=== PATIENT | female | born 1965 | race Caucasian/White ===

== ENCOUNTER → 2016-03-16 | Day surgery (SDC) | payer OTHER ==
[2016-02-24 10:12] VITALS: Ht 167.6 cm; Wt 92.7 kg
[~2016-03-16] VITALS: Ht 167.6 cm; Wt 92.7 kg
[~2016-03-16] MED LIST: CIPR1TAB11 PO; CLON0.5T3 PO; DICL50TA3 PO; FLUO40CA8 PO; GEMF600T3 PO; HYDR-5688 PO; KETO10TA PO; LIDOCAINE HCL 2% 2 ML VIAL (20MG/ML) ONE; LISI10TA PO; MECL1TAB40 PO; METF500T PO; MIDAZOLAM HCL 1 MG/ML 2ML VIAL ONE; MULTTAB58 PO; ONDA4TAB10 SL; PROPOFOL IV EMULSION 10 MG/ML 20 ML VIAL IV ONE; SERT-234 PO; SERT1TAB68 PO; TRAM-10 PO
[2016-03-16 12:38] VITALS: TEMP 36.8
--- NOTE | 2016-03-16 12:56 | Endo History and Physical ---
History & Physical Date of Service: Mar 16, 2016. Chief Complaint: Screening; Hx diverticulitis Referring Physician: Dr. Pina History of Present Illness For colonoscopy Past Surgical History Hx Cardiac Surgery: No Hx Internal Defibrillator: No Hx Pacemaker: No Hx Abdominal Surgery: Yes (C-SECTIONS X 3, UTERINE ABLATION) Hx of Implantable Prosthesis: No Hx Post-Op Nausea and Vomiting: No Hx Cancer Surgery: No Hx Thoracic Surgery: No Hx Orthopedic: Yes (RT CTR) Hx Urinary Tract Surgery: No Family History None Social History Smoking Status: Former Smoker Hx Substance Use: No Hx Alcohol Use: Yes (RARELY) Allergies Coded Allergies: No Known Allergies (Verified , 03/16/16) Current Medications Reported Home Medications Medications Dose Route/Sig Max Daily Dose Days Date Category Meclizine HCl 12.5 Mg Tab 1 Tab PO TID PRN 10 02/24/16 Reported Zoloft (Sertraline Hcl) 100 Mg Tab 150 Mg PO HS 08/23/15 Reported Prinivil (Lisinopril) 10 Mg Tab 10 Mg PO HS 90 08/23/15 Reported Klonopin (Clonazepam) 0.5 Mg Tab 0.5-1 Tab PO HS PRN 30 08/23/15 Reported Glucophage (Metformin Hcl) 500 Mg Tab 500 Mg PO QAM 10/05/11 Reported Lopid (Gemfibrozil) 600 Mg Tab 600 Mg PO HS 11/04/08 Reported Vital Signs Weight (Kilograms): 92.73 Height (Feet): 5 Height (Inches): 6 Date Time Temp Pulse Resp B/P Pulse Ox O2 Delivery O2 Flow Rate FiO2 03/16/16 12:38 36.8 98 18 168/84 95 Room Air Physical Exam General Appearance: WD/WN Respiratory/Chest: Respiratory effort: no dyspnea Cardiovascular: Heart Auscultation: RRR Abdomen: Inspection & Palpation: soft Assessment and Plan For screening colonoscopy
--- NOTE | 2016-03-16 13:18 | Discharge Instructions ---
Endoscopy Patient Instructions Date / Procedure(s) Performed Mar 16, 2016. Colonoscopy Allergy Information Coded Allergies: No Known Allergies (Verified , 03/16/16) Discharge Date / Findings Mar 16, 2016. Diverticulosis, hemorrhoids Medication Instructions Stopped Medication(s): Metformin Restart Stopped Medication(s): resume meds Reported Home Medications Medications Dose Route/Sig Max Daily Dose Days Date Category Meclizine HCl 12.5 Mg Tab 1 Tab PO TID PRN 10 02/24/16 Reported Zoloft (Sertraline Hcl) 100 Mg Tab 150 Mg PO HS 08/23/15 Reported Prinivil (Lisinopril) 10 Mg Tab 10 Mg PO HS 90 08/23/15 Reported Klonopin (Clonazepam) 0.5 Mg Tab 0.5-1 Tab PO HS PRN 30 08/23/15 Reported Glucophage (Metformin Hcl) 500 Mg Tab 500 Mg PO QAM 10/05/11 Reported Lopid (Gemfibrozil) 600 Mg Tab 600 Mg PO HS 11/04/08 Reported Provider Instructions Activity Restrictions - No exercising or heavy lifting for 24 hours. - Do not drink alcohol the day of the procedure. - Do not drive a car or operate machinery until the day after the procedure. - Do not make any important decisions or sign important papers in 24 hours after the procedure. Following Day: - Return to full activity which may include returning to work/school. Diet Start your diet with liquids and light foods (jello, soup, juice, toast). Then eat your usual diet if not nauseated. Treatment For Common After Affects For mild abdominal pain, bloating, or excessive gas: - Rest - Eat lightly - Lie on right side Follow-Up Information Follow-up with Dr. Pina as scheduled Anesthesia Information What You Should Know You have had a procedure that required some medicine to reduce anxiety and discomfort. This treatment is called moderate sedation. After receiving the treatment, you may be sleepy, but you will be able to breathe on your own. The effects of the treatment may last for several hours. Follow these instructions along with Activity/Diet recommendations noted above: * Do NOT do anything where dizziness or clumsiness would be dangerous. * Rest quietly at home today, then you can be up and about tomorrow. * Have a responsible person stay with you the rest of today. * You may have had an I.V. today. If so, you may take the dressing off later today. Recommendations Call your doctor if: * Trouble breathing * Continuous vomiting for more than 24 hours * Temperature above 101 degrees * Severe abdominal pain or bloating * Pain not relieved by pain medicine ordered * There is increased drainage or redness from any incision * A large amount of rectal bleeding greater than 2-3 tablespoons. (If you had a polyp/s removed or have hemorrhoids, a small amount of blood - from the rectum is to be expected.) * You have any unanswered questions or concerns. IN THE EVENT OF A SERIOUS EMERGENCY, GO TO THE NEAREST EMERGENCY ROOM Your discharge instructions were prepared by provider Teddy Shrestha. Patient Instructions Signature Page Asia Bullard Patient (or Guardian) Signature/Date: I have read and understand the instructions given to me by my caregivers. Caregiver/RN/Doctor Signature/Date: The above-named patient and/or guardian has received patient instructions on this date. + Original Patient Signature Page (only) stays with chart. Please make copy for patient.
--- NOTE | 2016-03-16 13:22 | GI REPORT ---
Procedure Date: 03/16/2016 12:38 PM Procedure: Colonoscopy Indications: Screening for colorectal malignant neoplasm Medicines: Midazolam 2 mg IV, Propofol total dose 250 mg IV, Lidocaine 40 mg IV Complications: No immediate complications. Estimated Blood Loss: Estimated blood loss: none. Procedure: Pre-Anesthesia Assessment: - Prior to the procedure, a History and Physical was performed, and patient medications, allergies and sensitivities were reviewed. The patient's tolerance of previous anesthesia was reviewed. - The risks and benefits of the procedure and the sedation options and risks were discussed with the patient. All questions were answered and informed consent was obtained. After I obtained informed consent, the scope was passed under direct vision. Throughout the procedure, the patient's blood pressure, pulse, and oxygen saturations were monitored continuously. The scope was introduced through the anus and advanced to the cecum, identified by appendiceal orifice and ileocecal valve. The colonoscopy was performed without difficulty. The patient tolerated the procedure well. The quality of the bowel preparation was excellent. Findings: A few diverticula were found in the sigmoid colon. Non-bleeding internal hemorrhoids were found during endoscopy. The hemorrhoids were mild. Impression: - Diverticulosis in the sigmoid colon. - Non-bleeding internal hemorrhoids. - No specimens collected. Recommendation: - Discharge patient to home (ambulatory). - Continue present medications. - Repeat colonoscopy in 10 years for screening purposes. - Return to primary care physician PRN. Teddy Shrestha M.D. Teddy Shrestha MD 03/16/2016 1:21:18 PM This report has been signed electronically. Note Initiated On: 03/16/2016 12:38 PM
[2016-03-16 13:55] VITALS: BP 118/69; PULSE 80; O2SAT 95
--- NOTE | 2016-03-16 15:15 | Anesthesiology Progress Note ---
Anesthesia Post Op Note Date & Time Mar 16, 2016 at 15:15 Vital Signs Pain Intensity: 0 Vital Signs Past 12 Hours Date Time Temp Pulse Resp B/P Pulse Ox O2 Delivery O2 Flow Rate FiO2 03/16/16 13:55 80 18 118/69 95 Room Air 03/16/16 13:39 75 18 123/73 94 Room Air 03/16/16 13:24 98 18 85/52 98 Room Air 03/16/16 12:38 36.8 98 18 168/84 95 Room Air Notes Mental Status: alert / awake / arousable, participated in evaluation Pt Amnestic to Procedure: Yes Nausea / Vomiting: adequately controlled Pain: adequately controlled Airway Patency, RR, SpO2: stable & adequate BP & HR: stable & adequate Hydration State: stable & adequate Anesthetic Complications: no major complications apparent
== END | disposition home or self-care (01) ==
LOC: C.GI 12:17
PROVIDERS: ATTEND Internal Medicine Gastroenterology
DX: Z12.11 Encounter for screening for malignant neoplasm of colon (principal); K64.8 Other hemorrhoids; K57.30 Diverticulosis of large intestine without perforation or abscess without bleeding; Z87.891 Personal history of nicotine dependence

== ENCOUNTER → 2016-05-11 | Outpatient (CLI) | payer OTHER ==
[~2016-05-11] MED LIST changes: -LIDOCAINE HCL 2% 2 ML VIAL (20MG/ML) ONE; -MIDAZOLAM HCL 1 MG/ML 2ML VIAL ONE; -PROPOFOL IV EMULSION 10 MG/ML 20 ML VIAL IV ONE; -SERT1TAB68 PO
[2016-05-11 15:54] LABS: HEMATOCRIT 37.1 % (37-47); MEAN CELL VOLUME 83.2 fL (80-100); MEAN CORPUSCULAR HGB CONC 33.7 g/dl (32-36); MEAN PLATELET VOLUME 10.2 fL (7.4-10.4); PLATELET COUNT 256 K/uL (130-400); RED BLOOD COUNT 4.46 M/uL (4.2-5.4); WHITE BLOOD COUNT 6.67 K/uL (4.8-10.8)
[2016-05-11 16:25] LABS: BLOOD UREA NITROGEN 12 mg/dl (7-18); BUN/CREATININE RATIO 19.3 (10-20); CARBON DIOXIDE 28 mmol/L (21-32); CHLORIDE 103 mmol/L (98-107); CREATININE 0.62 mg/dl (0.60-1.20); GLUCOSE 105 mg/dl (70-99); POTASSIUM 3.8 mmol/L (3.5-5.1); SODIUM 138 mmol/L (136-145)
== END | disposition home or self-care (01) ==
LOC: C.CPL 14:40
PROVIDERS: ATTEND Physical Medicine & Rehabilitation Sports Medicine
DX: Z01.818 Encounter for other preprocedural examination (principal); G56.02 Carpal tunnel syndrome, left upper limb

== ENCOUNTER → 2016-05-14 | Day surgery (SDC) | payer OTHER ==
[2016-04-30 07:47] VITALS: Ht 167.6 cm; Wt 92.7 kg
[~2016-05-14] VITALS: Ht 167.6 cm; Wt 92.7 kg
[~2016-05-14] MED LIST changes: +ATROPINE SULFATE 0.1 MG/ML 5ML SYR IV PRN; +BUPIVACAINE/EPINEPHRINE 0.5% MPF 1:200,000 30 ML VIAL ONE; +CEFAZOLIN 2000 MG/60 ML D5W IV SCH; +DEXAMETHASONE SOD INJ 4 MG/ML VIAL ONE; +EpHEDrine SULFATE INJ 50 MG/ML AMP IV PRN; +FENTANYL CITRATE INJ 50 MCG/1 ML 2 ML VIAL IV PRN; +FENTANYL CITRATE INJ 50 MCG/1 ML 2 ML VIAL ONE; +HYDROCODONE/ACETAMOPHEN 5/325MG TAB PO PRN; +LACTATED RINGER'S 1000ML 1,000 ML IV SCH; +LIDOCAINE HCL 1% 20 ML VIAL ONE; +LIDOCAINE HCL 2% 2 ML VIAL (20MG/ML) ONE; +MIDAZOLAM HCL 1 MG/ML 2ML VIAL ONE; +MoRPHine SULFATE 2 MG/ML CARP IV PRN; +MoRPHine SULFATE 4 MG/ML 1 ML CARP\\VIAL IV PRN; +ONDANSETRON INJ 2 MG/ML 2 ML VIAL IV PRN; +ONDANSETRON INJ 2 MG/ML 2 ML VIAL ONE; +PROPOFOL IV EMULSION 10 MG/ML 20 ML VIAL IV ONE; +SODIUM CHLORIDE 0.9% 1000ML 1,000 ML IV SCH
--- NOTE | 2016-05-14 08:19 | History & Physical Bridge Note ---
H&P Re-Evaluation Bridge Note: I have examined the patient, reviewed the History & Physical and in the interval since the performance of the History & Physical I have noted the following changes of clinical significance: No changes noted
--- NOTE | 2016-05-14 09:05 | [facility] Post Operative Brief Note ---
Immediate Operative Summary Operative Date May 14, 2016. Pre-Operative Diagnosis Left Carpal Tunnel Syndrome Post-Operative Diagnosis Same Procedure(s) Performed Left Carpal Tunnel Release Surgeon Dr. Gomez Rn Perinatal Surgeon(s) Kirsten Barnett PA-C Estimated Blood Loss 0 mL Findings nerve branch thru transverse carpal ligament Specimens None Anesthesia local with IV sedation Complication(s) None Disposition Recovery Room / PACU
[2016-05-14 09:10] VITALS: TEMP 36.3
--- NOTE | 2016-05-14 09:11 | Discharge Instructions-SurgCtr ---
Discharge Instructions Date of Service May 14, 2016. Visit Reason for Visit: Left Carpal Tunnel Syndrome Discharge Discharge Diagnosis / Problem: Status post left carpal tunnel release Discharge Goals Goal(s): Decrease discomfort, Improve function, Increase independence Medications Stopped Medications Name(s): Metformin- last taken 05/06/16 Lopid- last taken 05/06/16 Activity Recommendations Activity Limitations: per Instructions/Follow-up section The following are instructions to follow after minor hand surgery. ACTIVITY RECOMMENDATIONS: * Minimize activity until your first visit after surgery. * No excessive walking, jogging, sports or laboring. * Return to activity is individualized. Most patients are able to return to everyday activities within 2 weeks. * Return to sports or intensive labor usually occurs at 1-2 months. * DRIVING: Driving may be resumed when you feel you have adequate pain control and use of the hand. * BATHING: You may shower or sponge-bathe immediately after surgery. The dressing will need to be covered with a plastic bag or plastic wrap until the dressing is changed on the fourth or fifth day after surgery. Once the dressing has been changed on the fourth or fifth day after surgery, you may shower and get the incision wet. * Wash with regular soap and water. * Do not bathe (submerge the incision), soak, swim or use a hot tub until the incision is completely healed over with normal skin and the doctor has given the OK to proceed. * There is no need to apply any ointments, powders or salves to your incision. * Do not apply alcohol or hydrogen peroxide directly to the incision. Diluted peroxide (50:50 mixture with sterile saline) may be used to clean dried blood from around the incision area. WORK/SCHOOL: * You may return to sedentary work or school when you are feeling comfortable. This is usually 3-7 days after surgery. * Expect increased discomfort with increased activity. Continue to elevate and ice the hand as much as possible. DIET: * Resume previous diet. MEDICATIONS: * You will have a prescription for pain medication and an anti-inflammatory medication after surgery. Use the pain pills for severe pain and the anti-inflammatory for less severe pain. * Once the pain pills have run out, try to use the anti-inflammatory. If this is not effective then contact the office for assistance. * The pain medication may cause nausea, constipation and sleepiness. You should see how they affect you before driving or similar activity. * The anti-inflammatory may cause stomach upset and bleeding. If this occurs, let your doctor know immediately . * Some patients may need blood clot prevention. This can be done with either a pill or a simple shot. Your doctor will advise you on when to begin these medications and how to take them. * Do not take aspirin or other anti-inflammatory products (i.e. Advil or Aleve ) if taking blood thinner medication. * Take a stool softener like Colace or a stimulant like Senokot to prevent constipation. SPECIAL CARE INSTRUCTIONS: ICE: * Do not apply ice directly to the skin. * Use a thin dressing or stockinet between the skin and ice bag. The dressing in place after surgery will suffice. * Apply ice for 20-30 minutes and repeat every 2-4 hours. This is especially important for the first 3-7 days after surgery. * Once the pain improves, use ice as needed. ELEVATION: * Keep your hand elevated at or above the level of your heart as much as possible. * Expect some increased discomfort and swelling if you allow your hand to hang down for any length of time. DRESSING: * Your dressing will be changed 4-5 days after surgery by the physical therapist or physician's animal care assistant. Leave your dressing intact until this time. * You may then change your dressing daily with clean dry gauze or Band-aids and a soft wrap or stockinet. * Always wash your hands prior to touching the incision area. * Once the stitches are removed, you may leave the wound open to air or cover with a thin bandage. * There is no need to apply any ointments, powders or salves to your incision. * Expect some bloody drainage for the first few days after surgery. * Leave the tape strips in place (if present) for 5-7 days. * The initial dressing after surgery may become soaked with blood or fluid which is normal. You may reinforce your dressing with clean, dry gauze as needed. BRACE: * Bracing is generally not needed after routine hand surgery. THERAPY: * Physical therapy may be prescribed after your surgery. * For carpal tunnel and trigger digit surgery you may begin moving your fingers and wrist immediately after surgery as tolerated. * Be careful to not overuse. * Once the sutures are removed, further range of motion exercises can be performed. * Hand incisions may be very sensitive for a few months after surgery so avoid excessive pressure on the incision. If necessary, use a padded weightlifters' glove. * You may massage the incision with skin cream to make it less sensitive and reduce scarring. * Hand strength usually returns with normal use. * If needed, squeezing a soft sponge or Play-dough may help. * Your doctor will recommend physical therapy if necessary. PROBLEMS/QUESTIONS: * If you have any problems such as severe pain, numbness, tingling or high fevers or if you have any questions, please contact the office at [phone]. * It is not uncommon to have some numbness and tingling after the surgery especially if you have had a nerve block done. This should gradually improve over the first 1- 2 days. If this persists longer or worsens then contact the office. FOLLOW UP VISIT: * If not already scheduled, please call the office at to schedule follow-up appointments for approximately 10 days, 6 weeks and 3 months after surgery. * Follow up with Dr. Gomez on 05/25/16 at 11 am * Follow up with BUNNY Villarreal PA-C ON 04/29/16 AT 2.15 pm Anesthesia . Post Anesthesia Instructions: If you have had General Anesthesia or IV Sedation: * Do not drive today. * Resume driving when surgeon permits. * Do not make important decisions or sign legal documents today. * Call surgeon for: 1. Temperature elevations greater than 101 degrees F. 2. Uncontrollable pain. 3. Excessive bleeding. 4. Persistent nausea and vomiting. 5. Medication intolerance (nausea, vomiting or rash). * For nausea and vomiting use only clear liquids such as: tea, soda, bouillon until nausea subsides, then gradually increase diet as tolerated. * If you have any concerns or questions, call your surgeon's office. If physician is unavailable and it is an emergency, call 911 or go to the nearest emergency room. . Diet Recommendations Home Diet: no limitations, resume previous diet Procedures Procedures Performed: Left Carpal Tunnel Release Pending Studies Studies pending at discharge: no Medical Emergencies . Who to Call and When: Medical Emergencies: If at any time you feel your situation is an emergency, please call 911 immediately. . Non-Emergent Contact Non-Emergency issues call your: Surgeon . . "Provider Documentation" section prepared by Erasmo Gabriel.
--- NOTE | 2016-05-14 09:17 | Anesthesia Progress Nt - [facility] ---
Anesthesia Post Op Note Date & Time May 14, 2016 at 09:17 Vital Signs Pain Intensity: 0 Vital Signs Past 12 Hours Date Time Temp Pulse Resp B/P Pulse Ox O2 Delivery O2 Flow Rate FiO2 05/14/16 07:06 36.7 89 16 126/86 96 Room Air Notes Mental Status: alert / awake / arousable, participated in evaluation Pt Amnestic to Procedure: Yes Nausea / Vomiting: adequately controlled Pain: adequately controlled Airway Patency, RR, SpO2: stable & adequate BP & HR: stable & adequate Hydration State: stable & adequate Anesthetic Complications: no major complications apparent
[2016-05-14 09:47] VITALS: BP 114/74; PULSE 71; O2SAT 99
--- NOTE | 2016-05-14 11:58 | OPERATIVE REPORT ---
DATE OF OPERATION: 05/14/2016 PREOPERATIVE DIAGNOSIS: Left carpal tunnel syndrome. POSTOPERATIVE DIAGNOSIS: Same. PROCEDURE: Open left carpal tunnel release. SURGEON: Dr. Gomez. AUTOMOTIVE SERVICES MANAGER: Cristiana Barnett and Jeffry Lane, third year PA student. ANESTHESIA: Local with IV sedation. INDICATIONS OF PROCEDURE: The patient is a 50-year-old female with left carpal tunnel syndrome refractory to nonsurgical methods of management. PROCEDURE IN DETAIL: Informed consent was obtained. The patient was identified as Asia Bullard. She identified the operative site as the left hand. I marked with my initials. A preop surgical time out was performed. A preop dose of IV antibiotics was given. She was taken to the operating room and positioned supine on the hospital stretcher. The left arm was placed on a hand table. A tourniquet was applied about the left upper arm. The limb was prepped and draped in the usual sterile fashion. The exam under anesthesia was unremarkable. DVT prophylaxis is not indicated. Prior to the start of the procedure, 1% lidocaine with epinephrine was injected into the hand for carpal tunnel block. Routine prep and drape was performed. This was followed by exsanguinating the limb with the Esmarch, tourniquet inflated to 225 mmHg. A midline longitudinal incision was made beginning at Magana's cardinal line and proceeding just short of the distal wrist crease. Blunt dissection was utilized down to subcutaneous tissues and the transverse carpal ligament was identified. The distal extent was incised. The fat at the distal end of the carpal canal was identified. A very small muscle was noted at this level which was transected, it was only about 4 mm wide and 2 cm long oriented transversely. The incision through the transverse carpal ligament was carried proximally. At that point it was noted that there was a small nerve branch piercing the transverse carpal ligament and proceeding towards the thenar fascia and musculature. Further dissection was performed in order to safely visualize and protect the nerve. The incision was extended ulnar peters to the transverse wrist crease. Blunt dissection was then performed down through the subcutaneous tissues. The remnants of the palmar fascia were incised. The junction of the distal forearm fascia and proximal transverse carpal ligament was identified. The nerve was identified and the release was then carried slightly more ulnar peters up into the distal forearm fascia under direct visualization. The nerve branch was about 2-3 mm in size and remained in continuity. The nerve itself and tendons and tenosynovium, contents and floor of the canal looked normal. I released the nerve up into the thenar fascia. This could be a cutaneous branch or an aberrant pathway of the motor branch. The nerve remained in continuity. The wound was irrigated and then the skin was closed with interrupted 4-0 nylon horizontal mattress stitches. A soft sterile dressing was applied and the tourniquet was let down. The patient was awakened from anesthesia without difficulty, taken to recovery in stable condition. There were no specimens or complications. Counts were correct at the end of case. Blood loss was minimal. At the conclusion of the operation, I spoke to patient's and informed him of my findings. Detailed postoperative instructions were given. She will be rehabilitated according to the carpal tunnel plan. I attest to the content of the Intraoperative Record and any orders documented therein. Any exceptio ns are noted below.
--- NOTE | 2016-05-14 13:24 | [facility] Operative Report ---
Operative Report Operative Date May 14, 2016. Pre-Operative Diagnosis Left Carpal Tunnel Syndrome Post-Operative Diagnosis Left carpal tunnel syndrome Procedure(s) Performed Open left carpal tunnel release Surgeon Dr. Gomez Assistant Branch Operations Manager Surgeon(s) Kirsten Barnett PA-C Estimated Blood Loss 0 mL Findings CTS left wrist Specimens None Drains None Anesthesia local with IV sedation Complication(s) None Disposition Recovery Room / PACU Indications Patient is a 50 year old female with complaints of left hand paresthesias, failed with conservative treatment. X-rays, EMG/NCS obtained, found to have left carpal tunnel syndrome. Surgical intervention discussed, she wished to proceed. Risks/complications discussed, informed consent obtained. Description of Procedure Patient was taken to the operating room, given IV Ancef for surgical prophylaxis. Time out performed, prepped and draped in routine sterile fashion. I was present the entire case, please see Dr. Gomez's operative report for further detail. Patient was awakened and taken to the recovery room in stable condition. I attest to the content of the Intraoperative Record and any orders documented therein. Any exceptions are noted below.
== END | disposition home or self-care (01) ==
LOC: X.SURG 06:54
PROVIDERS: ATTEND Physical Medicine & Rehabilitation Sports Medicine
DX: G56.02 Carpal tunnel syndrome, left upper limb (principal); F32.9 Major depressive disorder, single episode, unspecified; I10 Essential (primary) hypertension; I25.10 Atherosclerotic heart disease of native coronary artery without angina pectoris; K57.30 Diverticulosis of large intestine without perforation or abscess without bleeding; E78.5 Hyperlipidemia, unspecified; E66.9 Obesity, unspecified; Z98.890 Other specified postprocedural states; Z68.33 Body mass index [BMI] 33.0-33.9, adult; Z82.49 Family history of ischemic heart disease and other diseases of the circulatory system; Z83.3 Family history of diabetes mellitus

== ENCOUNTER → 2016-07-08 | Outpatient (CLI) | payer OTHER ==
[~2016-07-08] MED LIST changes: -ATROPINE SULFATE 0.1 MG/ML 5ML SYR IV PRN; -BUPIVACAINE/EPINEPHRINE 0.5% MPF 1:200,000 30 ML VIAL ONE; -CEFAZOLIN 2000 MG/60 ML D5W IV SCH; +CIPR-255 PO; -DEXAMETHASONE SOD INJ 4 MG/ML VIAL ONE; -EpHEDrine SULFATE INJ 50 MG/ML AMP IV PRN; -FENTANYL CITRATE INJ 50 MCG/1 ML 2 ML VIAL IV PRN; -FENTANYL CITRATE INJ 50 MCG/1 ML 2 ML VIAL ONE; +GADAVIST IV PRN; -HYDROCODONE/ACETAMOPHEN 5/325MG TAB PO PRN; -LACTATED RINGER'S 1000ML 1,000 ML IV SCH; -LIDOCAINE HCL 1% 20 ML VIAL ONE; -LIDOCAINE HCL 2% 2 ML VIAL (20MG/ML) ONE; +METR-163 PO; -MIDAZOLAM HCL 1 MG/ML 2ML VIAL ONE; -MoRPHine SULFATE 2 MG/ML CARP IV PRN; -MoRPHine SULFATE 4 MG/ML 1 ML CARP\\VIAL IV PRN; -ONDANSETRON INJ 2 MG/ML 2 ML VIAL IV PRN; -ONDANSETRON INJ 2 MG/ML 2 ML VIAL ONE; -PROPOFOL IV EMULSION 10 MG/ML 20 ML VIAL IV ONE; -SODIUM CHLORIDE 0.9% 1000ML 1,000 ML IV SCH
--- NOTE | 2016-07-08 08:14 | DIAGNOSTIC IMAGING REPORT ---
MRI brain BRAIN COMBO FOR IAC CLINICAL HISTORY: [id number] TECHNIQUE: Multiaxial MRI acquisition COMPARISON STUDY: 09/17/2011 FINDINGS: Normal study. Diffusion-weighted images are negative for an acute ischemic insult. Signal characteristics are unremarkable throughout. The internal auditory canals are unremarkable. No abnormal postcontrast enhancement. IMPRESSION: Normal study. No change from the prior exam. Electronically signed by: Neno Mcmahan M.D. 07/08/2016 8:13 AM Dictated Date/Time: 07/08/2016 8:10 AM
== END | disposition home or self-care (01) ==
LOC: C.MRIBC 06:51
PROVIDERS: ATTEND Family Medicine
DX: H93.19 Tinnitus, unspecified ear (principal); R42 Dizziness and giddiness

== ENCOUNTER → 2016-08-26 | Outpatient (CLI) | payer OTHER ==
[~2016-08-26] MED LIST changes: -CIPR-255 PO; -GADAVIST IV PRN; -METR-163 PO
--- NOTE | 2016-08-26 11:57 | DIAGNOSTIC IMAGING REPORT ---
LUMBAR SPINE 5 VIEWS HISTORY: Pain LOW BACK PAIN, RT LEG PAIN COMPARISON: None. FINDINGS: There is no fracture. No subluxation. Minimal degenerative disc change throughout IMPRESSION: Minimal degenerative change. No acute process. Electronically signed by: Neno Mcmahan M.D. 08/26/2016 11:56 AM Dictated Date/Time: 08/26/2016 11:55 AM
== END | disposition home or self-care (01) ==
LOC: C.RADBC 11:27
PROVIDERS: ATTEND Chiropractor
DX: M54.5 Low back pain (principal); M79.604 Pain in right leg; I10 Essential (primary) hypertension; D47.2 Monoclonal gammopathy; G62.9 Polyneuropathy, unspecified; R00.2 Palpitations; Z11.59 Encounter for screening for other viral diseases

== ENCOUNTER → 2016-09-02 | Outpatient (CLI) | payer OTHER ==
[~2016-09-02] MED LIST changes: -FLUO40CA8 PO; -HYDR-5688 PO
--- NOTE | 2016-09-02 16:21 | DIAGNOSTIC IMAGING REPORT ---
MRI OF THE LUMBAR SPINE WITHOUT CONTRAST CLINICAL HISTORY: Severe low back pain radiating into right lower extremity. COMPARISON STUDY: Lumbar spine radiographs August 26, 2016. TECHNIQUE: Utilizing a 1.5 Cinthia magnet and dedicated coil, multiplanar, multiecho imaging of the lumbar spine was performed without IV contrast. FINDINGS: For purposes of numbering on since exam, the L5-S1 disc space is assigned to axial image 23 of 25. Alignment of the lumbar spine is anatomic. Vertebral body heights are maintained. There is no intracanalicular mass or fluid collection. Conus terminates at the inferior L1 level. Paravertebral soft tissues are unremarkable. L1-2: The central canal and neural foramen are patent. L2-3: The central canal and neural foramen are patent. L3-4: The central canal and neural foramen are patent. L4-5: There is mild facet arthrosis. The central canal and neural foramen are patent. L5-S1: There is an 8 mm x 5 mm right paracentral disc protrusion with moderate narrowing of the right lateral recess with mass effect upon the descending right S1 nerve root. The neural foramen are patent. There is minimal narrowing of the right aspect of the central canal. IMPRESSION: 1. Moderate sized right paracentral disc protrusion at L5-S1 with moderate narrowing of the right lateral recess and suspected mass effect upon the descending right S1 nerve root. This could be correlated with a right S1 radiculopathy. 2. Otherwise, minimal multilevel degenerative changes of the lumbar spine. Electronically signed by: Pipo Terrell M.D. 09/02/2016 4:20 PM Dictated Date/Time: 09/02/2016 4:14 PM
== END | disposition home or self-care (01) ==
LOC: C.MRIBC 14:53
PROVIDERS: ATTEND Anesthesiology
DX: M54.5 Low back pain (principal); M54.16 Radiculopathy, lumbar region

== ENCOUNTER 2016-09-06 19:31 | Emergency (ER) | payer OTHER ==
[~2016-09-06] VITALS: Ht 165.1 cm; Wt 93.6 kg
[~2016-09-06 19:31] MED LIST changes: -CIPR1TAB11 PO; -DICL50TA3 PO; -KETO10TA PO; -ONDA4TAB10 SL; -TRAM-10 PO
[2016-09-06 19:34] VITALS: TEMP 36.2; Ht 165.1 cm; Wt 93.6 kg
[2016-09-06] MEDS ORDERED: HYDROCODONE/ACETAMOPHEN 5/325MG TAB PO STA (20:09)
[2016-09-06] MEDS ORDERED: ONDANSETRON 4MG OD TAB PO STA (20:09)
[2016-09-06] MEDS ORDERED: ONDA4TAB10 SL (20:14)
[2016-09-06] MEDS ORDERED: ONDANSETRON HOME PACK 4MG OD TAB PO ONE (20:15)
[2016-09-06 20:25] VITALS: BP 133/85; PULSE 79; O2SAT 98
--- NOTE | 2016-09-06 20:38 | EMERGENCY ROOM VISIT NOTE ---
History First contact with patient: 19:41 Chief Complaint: BACK PAIN Stated Complaint: SEVERE BACK PAIN History of Present Illness The patient is a 50 year old female who presents to the Emergency Room with complaints oflower back pain radiating all the way down the right leg to the foot. The patient has had the symptoms for the past few months. She was seen earlier last week by Dr. Cason with [facility] pain management. The patient reports having an MRI performed and has an appointment with Dr. Cason tomorrow afternoon. The patient reports significant pain at this time. The patient reports that she was in the swimming poor over the weekend, but now is finding it difficult for her to sit or try to get up from a sitting or lying position. She has not noticed any worsening weakness or foot drop. She also denies any bladder or bowel incontinence or saddle anesthesias.the patient reports that she does not like to take narcotic analgesics as they make her nauseated. She has never been treated with an antiemetic. She reports having a prescription for hydrocodone from carpal tunnel surgery 4 months ago. The patient reports that she just completed a Medrol Dosepak that was prescribed by Dr. Cason. The patient currently rates her discomfort a 9 out of 10 on my exam. Review of Systems 10 system review was performed and was negative except for pertinent positives and negatives as indicated in history of present illness Past Medical/Surgical History Medical Problems: (1) Anxiety Disorder, Unspecified (2) Charcot's joint (3) CHARCOT'S JOINT, UNSPECIFIED SITE (4) Diverticulitis (5) Hyperlipidemia Nec/Nos (6) Hypertension Nos (7) LLQ abdominal pain (8) Loss of sensation (9) Peripheral neuropathy (10) Peripheral neuropathy Family History Unremarkable Social History Smoking Status: Never Smoker Alcohol Use: none Marital Status: Housing Status: lives with family Occupation Status: employed Current/Historical Medications Scheduled Gemfibrozil (Lopid), 600 MG PO HS Lisinopril (Prinivil), 10 MG PO HS Metformin Hcl (Glucophage), 500 MG PO QAM Multiple Vitamin (Multivitamin), 1 TAB PO QAM Ondasetron Odt (Zofran Odt), 4 MG SL Q6H Sertraline (Zoloft), 150 MG PO HS Scheduled PRN Clonazepam (Klonopin), 0.5-1 TAB PO HS PRN for Sleep Meclizine HCl (Meclizine HCl), 1 TAB PO TID PRN for VERTIGO Allergies Coded Allergies: No Known Allergies (Verified , 05/14/16) Physical Exam Vital Signs Date Time Temp Pulse Resp B/P (MAP) Pulse Ox O2 Delivery O2 Flow Rate FiO2 09/06/16 19:34 36.2 97 18 153/95 96 Room Air Physical Exam CONSTITUTIONAL: Healthy and well nourished. Alert and oriented X 3 with positive affect. The patient appears in moderate discomfort from pain, and is constantly shifting her weight on the bed while lying in a semi-Su's position. HEENT: Normocephalic, atraumatic. Pupils equal, round and reactive. NECK: Full active range of motion without discomfort. MUSCULOSKELETAL: Examination shows mild tenderness to palpation through the right SI joint. Negative logroll. Positive straight leg raise. INTEGUMENTARY: No rash or other significant dermatologic conditions noted. NEUROLOGIC: The patient has decreased sensation of bilateral lower extremities secondary to neuropathy. Medical Decision & Procedures ER Provider Diagnostic Interpretation: I did review the patient's MRI from last week, with the report as follows: MRI OF THE LUMBAR SPINE WITHOUT CONTRAST CLINICAL HISTORY: Severe low back pain radiating into right lower extremity. COMPARISON STUDY: Lumbar spine radiographs August 26, 2016. TECHNIQUE: Utilizing a 1.5 Cinthia magnet and dedicated coil, multiplanar, multiecho imaging of the lumbar spine was performed without IV contrast. FINDINGS: For purposes of numbering on since exam, the L5-S1 disc space is assigned to axial image 23 of 25. Alignment of the lumbar spine is anatomic. Vertebral body heights are maintained. There is no intracanalicular mass or fluid collection. Conus terminates at the inferior L1 level. Paravertebral soft tissues are unremarkable. L1-2: The central canal and neural foramen are patent. L2-3: The central canal and neural foramen are patent. L3-4: The central canal and neural foramen are patent. L4-5: There is mild facet arthrosis. The central canal and neural foramen are patent. L5-S1: There is an 8 mm x 5 mm right paracentral disc protrusion with moderate narrowing of the right lateral recess with mass effect upon the descending right S1 nerve root. The neural foramen are patent. There is minimal narrowing of the right aspect of the central canal. IMPRESSION: 1. Moderate sized right paracentral disc protrusion at L5-S1 with moderate narrowing of the right lateral recess and suspected mass effect upon the descending right S1 nerve root. This could be correlated with a right S1 radiculopathy. 2. Otherwise, minimal multilevel degenerative changes of the lumbar spine. ED Course Patient history and physical exam were performed. Nurse's notes were reviewed. Vital signs were reviewed, showing an elevated blood pressure 153/95. The patient does appear in moderate discomfort from pain. The patient voices that she does not like to take narcotic analgesics as they make her nauseated. She has never tried to take antiemetics before taking her medications. I also reviewed the patient's MRI from last week, showing a moderate sized right paracentral disc protrusion at L5-S1 with moderate narrowing of the right lateral recess and suspected mass effect upon the descending right S1 nerve root. This could be correlated with a right S1 radiculopathy. I did review MRI results with the patient. At this point, I explained options including attempted pain management while in the emergency department, opting for hospitalist evaluation and/or spine surgeon consultation if she has intractable pain. I also explained that she could follow up tomorrow with Dr. Cason, and could discuss further interventions, during the possibility of an epidural steroid injection. 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 At this point, the patient elected to try outpatient pain management. The patient again reports that she has plenty of hydrocodone pills from her previous carpal tunnel surgery that she never used. The patient was provided a home pack and prescription for Zofran ODT. She was also administered Brandon 5/325 and Zofran 4 mg ODT while in the emergency department. She was instructed to return to the emergency department for any uncontrollable pain, otherwise will follow-up with Dr. Cason tomorrow afternoon as scheduled. The patient was happy with plan of care , voiced understanding of all discharge instructions, and rated her discomfort an 8 out of 10 at the time of discharge when she is administered hydrocodone. Medical Decision Impression Primary Impression: Right lumbosacral radiculopathy Departure Information Prescriptions Ondasetron Odt (ZOFRAN ODT) 4 Mg Tab 4 MG SL Q6H for Nausea, #20 TAB Prov: Dimas Ramirez PA 09/06/16 Referrals Tyrone Caba M.D. (PCP) Patient Instructions [facility]
[2016-09-18] MEDS ORDERED: KETO10TA PO (10:53)
[2016-11-03] MEDS ORDERED: CIPR1TAB11 PO (14:41)
== END 2016-09-06 20:30 | disposition home or self-care (01) ==
LOC: C.EDB 19:32 → C.EDD 20:30
DX: M54.17 Radiculopathy, lumbosacral region (principal); E78.5 Hyperlipidemia, unspecified; I10 Essential (primary) hypertension; K57.92 Diverticulitis of intestine, part unspecified, without perforation or abscess without bleeding; F41.9 Anxiety disorder, unspecified; Z79.84 Long term (current) use of oral hypoglycemic drugs; Z79.899 Other long term (current) drug therapy

== ENCOUNTER 2016-09-07 04:18 | Observation (INO) | payer OTHER ==
[~2016-09-07] VITALS: Ht 165.1 cm; Wt 99.3 kg
[~2016-09-07 04:18] MED LIST changes: +ONDA4TAB10 SL
[2016-09-07] MEDS ORDERED: ONDANSETRON INJ 2 MG/ML 2 ML VIAL IV STA (04:32)
[2016-09-07] MEDS ORDERED: KETOROLAC TROMETHAMINE 30 MG/ML VIAL IV STA (04:32)
[2016-09-07] MEDS ORDERED: OXYCODONE HCL IR 5 MG TAB (IMMEDIATE RELEASE) PO STA (05:23)
[2016-09-07] MEDS ORDERED: HYDROmorphone INJ 0.5 MG/0.5 ML SYR IV STA (06:18)
--- NOTE | 2016-09-07 06:26 | EMERGENCY ROOM VISIT NOTE ---
History First contact with patient: 04:24 Chief Complaint: BACK PAIN Stated Complaint: BACK PAIN History of Present Illness The patient is a 50 year old female who presents to the Emergency Room with complaints of low back pain that radiates down her right leg for the past few weeks whose been following with Dr. Kelly and just finished a Medrol dosepak. Patient was seen here yesterday and given Pray and Zofran for her pain. Patient states she does not do well with narcotics and gets quite nauseous and ill with them. Patient states she took a Pray and Zofran and Rocephin that she felt very dizzy and queasy. Patient still complain of the back pain, 9 out of 10. Worse with movement and better with rest. No new injury. Patient denies loss of bowel or bladder control, saddle anesthesia, fever, chills, leg weakness, IV drug abuse. Review of Systems See HPI for pertinent positives & negatives. A total of 10 systems reviewed and were otherwise negative. Past Medical/Surgical History Medical Problems: (1) Anxiety Disorder, Unspecified (2) Charcot's joint (3) CHARCOT'S JOINT, UNSPECIFIED SITE (4) Diverticulitis (5) Hyperlipidemia Nec/Nos (6) Hypertension Nos (7) LLQ abdominal pain (8) Loss of sensation (9) Peripheral neuropathy (10) Peripheral neuropathy Social History Smoking Status: Never Smoker Alcohol Use: none Marital Status: Housing Status: lives with family Occupation Status: employed Current/Historical Medications Scheduled Gemfibrozil (Lopid), 600 MG PO HS Lisinopril (Prinivil), 10 MG PO HS Metformin Hcl (Glucophage), 500 MG PO QAM Multiple Vitamin (Multivitamin), 1 TAB PO QAM Ondasetron Odt (Zofran Odt), 4 MG SL Q6H Sertraline (Zoloft), 150 MG PO HS Scheduled PRN Clonazepam (Klonopin), 0.5-1 TAB PO HS PRN for Sleep Meclizine HCl (Meclizine HCl), 12.5 MG PO TID PRN for Dizziness or Vertigo Allergies Coded Allergies: No Known Allergies (Verified , 09/07/16) Physical Exam Vital Signs Date Time Temp Pulse Resp B/P (MAP) Pulse Ox O2 Delivery O2 Flow Rate FiO2 09/07/16 06:08 71 18 128/76 97 Room Air 09/07/16 04:21 36.8 88 16 141/89 92 Room Air Physical Exam VITALS: Vitals are noted on the nurse's note and reviewed by myself. Vital signs stable. GENERAL: White female in obvious pain, in no acute distress, nondiaphoretic, well-developed well-nourished. SKIN: Capillary reflex less than 2 seconds. HEENT: Normocephalic. PERRLA. EOMI. Nares patent. Mucous membranes moist. Neck is supple without nuchal rigidity. HEART: Regular rate and rhythm without murmurs gallops or rubs. LUNGS: Clear to auscultation bilaterally without wheezes, rales or rhonchi. No retractions or accessory muscle use. ABDOMEN: Positive bowel sounds x 4. Normal tympanic percussion. Soft, nontender, without masses or organomegaly. Toro sign negative. No guarding or rebound tenderness. MUSCULOSKELETAL: No gross musculoskeletal defects. No pedal edema. No calf tenderness. No thoracic or lumbar tenderness on exam. Positive straight leg raise on the right. Patient can plantarflex and dorsiflex her feet. +2 patellar reflexes equal present bilaterally NEURO: Patient was alert and oriented to person place and time. Normal sensation to light and sharp touch. Deep tendon reflexes 2+ patella bilaterally. No focal neurological deficits. Medical Decision & Procedures Medications Administered Medications (Trade) Dose Ordered Sig/Marielena Route Start Time Stop Time Status Last Admin Dose Admin Ketorolac Tromethamine (Toradol Inj) 30 mg NOW STAT IV 09/07/16 04:32 09/07/16 04:33 DC 09/07/16 04:52 30 MG Ondansetron HCl (Zofran Inj) 4 mg NOW STAT IV 09/07/16 04:32 09/07/16 04:33 DC 09/07/16 04:52 4 MG Oxycodone HCl (Roxicodone Immediate Rel Tab) 5 mg NOW STAT PO 09/07/16 05:23 09/07/16 05:24 DC 09/07/16 05:46 5 MG ED Course Prior records/ancillary studies reviewed. Triage Nursing notes reviewed. Additional history obtained from The patient's history was concerning for back pain. Differential diagnosis: Etiologies such as musculoskeletal, disc herniation, fracture, aortic disease, metastatic disease, cord compression, discitis, infection, renal colic, gastrointestinal, acute exacerbation of chronic back pain, sciatica, cauda equina, as well as others were entertained. Physical findings: As above. No focal neurologic findings noted. ER treatment provided: Toradol, Zofran On reassessment the patient felt better. Diagnostics interpreted by me: Imaging studies: MRI OF THE LUMBAR SPINE WITHOUT CONTRAST CLINICAL HISTORY: Severe low back pain radiating into right lower extremity. COMPARISON STUDY: Lumbar spine radiographs August 26, 2016. TECHNIQUE: Utilizing a 1.5 Cinthia magnet and dedicated coil, multiplanar, multiecho imaging of the lumbar spine was performed without IV contrast. FINDINGS: For purposes of numbering on since exam, the L5-S1 disc space is assigned to axial image 23 of 25. Alignment of the lumbar spine is anatomic. Vertebral body heights are maintained. There is no intracanalicular mass or fluid collection. Conus terminates at the inferior L1 level. Paravertebral soft tissues are unremarkable. L1-2: The central canal and neural foramen are patent. L2-3: The central canal and neural foramen are patent. L3-4: The central canal and neural foramen are patent. L4-5: There is mild facet arthrosis. The central canal and neural foramen are patent. L5-S1: There is an 8 mm x 5 mm right paracentral disc protrusion with moderate narrowing of the right lateral recess with mass effect upon the descending right S1 nerve root. The neural foramen are patent. There is minimal narrowing of the right aspect of the central canal. IMPRESSION: 1. Moderate sized right paracentral disc protrusion at L5-S1 with moderate narrowing of the right lateral recess and suspected mass effect upon the descending right S1 nerve root. This could be correlated with a right S1 radiculopathy. 2. Otherwise, minimal multilevel degenerative changes of the lumbar spine. Electronically signed by: Pipo Terrell M.D. 09/02/2016 4:20 PM Dictated Date/Time: 09/02/2016 4:14 PM Consultation: A consultation was placed with sap specialist, Dr. Escobedo. The case was discussed and diagnostics were reviewed. He will evaluate the patient for possible admission. This appears to be consistent with lumbar radiculopathy. Patient's pain was so unbearable despite several rounds of pain meds. Patient is requesting admission and I felt this is reasonable. Patient just had an MRI as above. No new changes in pain distribution. Patient states the pain is much worse with movement and better with rest. She is neurovascularly and neurologically intact. No deficits on exam.. Please see orthopedic spine's dictation for further admission regarding their treatment plan. By the evaluation outlined above emergent etiologies such as fracture, aortic disease, metastatic disease, infection, renal colic, gastrointestinal, cord compression, cauda equina, as well as others were deemed relatively unlikely. The pt informed about the findings as listed above. All questions were answered and pleased with the treatment. Case reviewed with my attending. Medical Decision as above [place] Drug Monitoring Program Search Results: patient reviewed within database, no issues identified Impression Primary Impression: Sciatica Additional Impression: Intractable low back pain Departure Information Dispostion Being Evaluated By Surgeon Condition FAIR Referrals Tyrone Caba M.D. (PCP) Patient Instructions My [facility] Problem Qualifiers Primary Impression: Sciatica Laterality: right Qualified Codes: M54.31 - Sciatica, right side
[2016-09-07] MEDS ORDERED: NURSING VERBAL MED ORDER SCH (06:30)
[2016-09-07] MEDS ORDERED: IV FLUIDS COMPLETED PRN (06:45)
[2016-09-07 07:13] VITALS: BP 128/76; TEMP 36.8; Ht 165.1 cm; Wt 99.3 kg
[2016-09-07] MEDS ORDERED: HYDROmorphone INJ 1 MG/ML SYR IV PRN (07:15)
[2016-09-07 07:57] VITALS: BP 128/78; PULSE 82; TEMP 36.7; O2SAT 94
[2016-09-07] MEDS: SODIUM CHLORIDE 0.9% 1000ML 1,000 ML IV SCH ×2 (09:01→20:48)
[2016-09-07] MEDS: KETOROLAC TROMETHAMINE 30 MG/ML VIAL IV. SCH ×2 (12:58→18:00)
[2016-09-07] MEDS ORDERED: CLONAZEPAM 0.5 MG TAB PO PRN (13:00)
[2016-09-07] MEDS ORDERED: ONDANSETRON 4MG OD TAB SL PRN (13:00)
[2016-09-07] MEDS: GABAPENTIN 300 MG CAP PO SCH ×2 (14:38→21:26)
[2016-09-07 15:06] VITALS: BP 122/76; PULSE 70; TEMP 36.7; O2SAT 96
[2016-09-07] MEDS: DEXAMETHASONE INJ 6 MG in SYRINGE 0 ML IV SCH (18:01)
[2016-09-07] MEDS: GEMFIBROZIL 600 MG TAB PO SCH (20:48)
[2016-09-07] MEDS: SERTRALINE HCL 50 MG TAB PO SCH (21:25)
[2016-09-07] MEDS: LISINOPRIL 10 MG TAB PO SCH (21:25)
[2016-09-07 23:00] VITALS: BP 131/77; PULSE 82; TEMP 36.9; O2SAT 92
[2016-09-08] MEDS: DEXAMETHASONE INJ 6 MG in SYRINGE 0 ML IV SCH ×4 (00:19→18:01)
[2016-09-08] MEDS: KETOROLAC TROMETHAMINE 30 MG/ML VIAL IV. SCH ×4 (00:19→18:01)
[2016-09-08 07:25] VITALS: BP 119/72; PULSE 73; TEMP 36.8; O2SAT 94
--- NOTE | 2016-09-08 07:52 | History and Physical ---
History & Physical Date Sep 08, 2016. Chief Complaint Back and lower extremity pain weakness numbness and tingling History of Present Illness The patient is a 50 year old female with complaints of the above-stated chief complaint ongoing for many years in duration months in duration worsening over last 10 days or so. Pain got so severe that she made a trip to the emergency room. The physicians cannot control her pain I was consulted admit admitted the patient to my service. As of the upon admission she was in significant pain back [place] area pain. She difficulty ambulating difficulty getting on her feet. She complained of global numbness to the right foot really get comfortable supine with her leg slightly elevated. MRI scan demonstrated disc protrusion lumbar spine L5-S1 favoring the affected right lower extremity Past Medical/Surgical History Medical Problems: (1) Anxiety Disorder, Unspecified (2) Charcot's joint (3) CHARCOT'S JOINT, UNSPECIFIED SITE (4) Diverticulitis (5) Hyperlipidemia Nec/Nos (6) Hypertension Nos (7) LLQ abdominal pain (8) Loss of sensation (9) Peripheral neuropathy (10) Peripheral neuropathy Additional History Hepatic Disease: No Endocrine Disorder: No Kidney Disease: No Hypertension: Yes Heart Disease: No Bleeding Tendencies: No Infectious Diseases: No Other: Hyperlipidemia Charcot joint neuropathy anxiety Allergies Coded Allergies: No Known Allergies (Verified , 09/07/16) Home Medications Scheduled Gemfibrozil (Lopid), 600 MG PO HS Lisinopril (Prinivil), 10 MG PO HS Metformin Hcl (Glucophage), 500 MG PO QAM Multiple Vitamin (Multivitamin), 1 TAB PO QAM Ondasetron Odt (Zofran Odt), 4 MG SL Q6H Sertraline (Zoloft), 150 MG PO HS Scheduled PRN Clonazepam (Klonopin), 0.5-1 TAB PO HS PRN for Sleep Meclizine HCl (Meclizine HCl), 12.5 MG PO TID PRN for Dizziness or Vertigo Physical Examination Skin: warm/dry Eyes: normal inspection ENT: normal ENT inspection Head: normocephalic Neck: no adenopathy Respiratory/Chest: lungs clear Cardiovascular: regular rate, rhythm Abdomen / GI: normal bowel sounds Back: + pertinent finding (spasticity loss of range of motion approximately 50 % flexion-extension and rotation) Extremities: + pertinent finding (this again pain with straight leg raising on the right numbness to the right foot reflexes 2 for the knee jerk and 1 over 4 the Achilles) Diagnosis Delightful 50-year-old female with a history of neuropathy with a disc herniation lumbar spine L5-S1 on the right-hand side ASA Classification: ASA Class II Plan of Treatment Patient will be admitted to my service and was admitted on September 07. We'll try to control her pain with vacation along with hopefully an epidural steroid injection to lumbar spine at 5 S1. We'll not spears to a surgical decision surgery does maintain an option down the road if she fails to improve with conservative care. The patient agrees with our treatment plan
--- NOTE | 2016-09-08 08:24 | Progress Note ---
Subjective Date of Service: Sep 08, 2016. Subjective Voiding: no voiding problems, no incontinence Patient improving with conservative measures including medication. Problem List Medical Problems: (1) Anxiety Disorder, Unspecified Status: Chronic (2) CHARCOT'S JOINT, UNSPECIFIED SITE Status: Chronic (3) Fall Status: Acute (4) Head contusion Status: Acute (5) Hyperlipidemia Nec/Nos Status: Chronic (6) Hypertension Nos Status: Chronic (7) Intractable low back pain Status: Acute (8) Left elbow contusion Status: Acute (9) Peripheral neuropathy Status: Chronic (10) Right lumbosacral radiculopathy Status: Acute (11) Sciatica Status: Acute Review of Systems Musculoskeletal: + muscle pain Neurologic: + numbness/tingling All Other Systems: Reviewed and Negative Medications Medications reviewed Objective Vital Signs Date Time Temp Pulse Resp B/P (MAP) Pulse Ox O2 Delivery O2 Flow Rate FiO2 09/08/16 07:25 36.8 73 16 119/72 (88) 94 Room Air 09/08/16 02:14 Room Air 09/07/16 23:00 36.9 82 16 131/77 (95) 92 Room Air 09/07/16 16:05 Room Air 09/07/16 15:06 36.7 70 18 122/76 (91) 96 Room Air 09/07/16 09:00 Room Air Assessment and Plan Disc herniation lumbar spine L5-S1 with improvement with education. Disposition: Try to get the patient up and able to worry here today continue with medication. Her having pain management visit with our patient. Hopefully injection today or or the next few days as an outpatient.
[2016-09-08] MEDS: METFORMIN HCL 500 MG TAB PO SCH (08:47)
[2016-09-08] MEDS: GABAPENTIN 300 MG CAP PO SCH ×3 (08:48→20:17)
[2016-09-08] MEDS: MULTIVITAMIN TAB PO SCH (08:48)
[2016-09-08] MEDS: SODIUM CHLORIDE 0.9% 1000ML 1,000 ML IV SCH ×2 (08:50→21:57)
--- NOTE | 2016-09-08 10:30 | Pain Management Consultation ---
Pain Management Consultation Date of Consultation Sep 08, 2016. Reason for Consultation Lumbar radiculopathy History Mrs. Bullard is a 50 year old white female that has been seen in consultation at the [facility] for lumbar radiculopathy. Patient states that she does have a 10+ year history of low back pain that has significantly worsened over the last 2 weeks. Patient went to the Emergency Department x 2. She tried oral Hydrocodone which was not effective. Patient currently describes approximately 25% right sided low back pain and 75% radicular pain along the right leg in an S1 distribution. She describes a burning, numbness, and sharp pain. There is reported right leg weakness. She is unable to weight bear on the right leg and sit due to increased pain. Pain is currently 5/10. She has previously tried oral steroids and oral narcotics without relief. Patient denies any foot drop, saddle anesthesia, bowel/bladder incontinence, or falls. Case discussed with Dr. Cason Past Medical/Surgical History (1) Peripheral neuropathy (2) Intractable low back pain (3) Depressive disorder (4) Hypertension (5) Dyslipidemia (6) Diabetes mellitus Social / Work History Smoking Status: Never smoker Smokeless Tobacco Use: No Alcohol Use: occasionally Drug Use: none Marital Status: Housing Status: lives with family Occupation: employed Allergies Coded Allergies: No Known Allergies (Verified , 09/07/16) Medications Current Inpatient Medications Medications (Trade) Dose Ordered Sig/Marielena Route Start Time Stop Time Status Last Admin Dose Admin Miscellaneous (Iv Fluids Completed) 1 ea PRN PRN N/A 09/07/16 06:45 09/07/17 06:44 Hydromorphone HCl (Dilaudid Inj) 1 mg Q2H PRN IV 09/07/16 07:15 09/21/16 07:14 09/07/16 09:02 1 MG Sodium Chloride 1,000 ml @ 75 mls/hr [id number] IV 09/07/16 07:15 10/07/16 07:14 09/08/16 08:50 75 MLS/HR Ketorolac Tromethamine (Toradol Inj) 30 mg Q6 IV. 09/07/16 12:00 09/12/16 11:59 09/08/16 05:41 30 MG Dexamethasone Sodium Phosphate 6 mg/Syringe 1.5 ml @ 1 mls/min Q6 IV 09/07/16 18:00 10/07/16 17:59 09/08/16 05:40 1 MLS/MIN Gabapentin (Neurontin Cap) 300 mg TID PO 09/07/16 14:00 10/07/16 13:59 09/08/16 08:48 300 MG Clonazepam (Klonopin Tab) `0.5-1 tabs for SLEEP ... HS PRN PO 09/07/16 13:00 10/07/16 12:59 Gemfibrozil (Lopid Tab) 600 mg HS PO 09/07/16 21:00 10/07/16 20:59 09/07/16 20:48 600 MG Lisinopril (Zestril Tab) 10 mg HS PO 09/07/16 21:00 10/07/16 20:59 09/07/16 21:25 10 MG Metformin HCl (Glucophage Tab) 500 mg QAM PO 09/08/16 09:00 10/08/16 08:59 09/08/16 08:47 500 MG Multivitamins (Multivitamin Tab) 1 tab QAM PO 09/08/16 09:00 10/08/16 08:59 09/08/16 08:48 1 TAB Ondansetron HCl (Zofran Odt) 4 mg Q6H PRN SL 09/07/16 13:00 10/07/16 12:59 09/07/16 18:10 4 MG Sertraline HCl (Zoloft Tab) 150 mg HS PO 09/07/16 21:00 10/07/16 20:59 09/07/16 21:25 150 MG Physical Exam Height & Weight: Height 5 feet, 5.00 inches. Weight 99.300 (Kilograms) 218 (Pounds) Last Vital Signs Documentation Date Time Temp Pulse Resp B/P (MAP) Pulse Ox O2 Delivery O2 Flow Rate FiO2 09/08/16 07:25 36.8 73 16 119/72 (88) 94 Room Air Exam: GENERAL: Mrs. Bullard is a 50 y/o white female that appears her stated age. Speech and cognition is intact. Mood and affect is appropriate. She does appear moderately uncomfortable in the hospital bed. Accompanied by her . HEAD: Normocephalic; atraumatic. EYES: Pupils are round, equal, and reactive to light; EOM intact. CHEST: Regular chest respiration and excursion. EXTREMITIES: 5/5 strength of the bilateral lower extremities. Positive SLR at 15 degrees on the right leg. Negative SLR on the left. There are scattered paresthesias along the right leg as compared to the left. BACK: Full ROM. No midline or facet tenderness. No SI joint tenderness. There is focal right lumbosacral tenderness. No paravertebral, quadratus lumborum, gluteal, or piriformis muscle spasm. NEURO: CN II-XII grossly intact with no focal deficits noted. Gait not observed. SKIN: No lesions, erythema, or rashes noted. Imaging MRI Findings Lumbar MRI 09/02/16: Moderate sized right paracentral disc protrusion at L5-S1 with moderate narrowing of the right lateral recess and suspected mass effect upon the descending right S1 nerve root. This could be correlated with a right S1 radiculopathy. [place] Drug Monitoring Program Search Results: patient reviewed within database, no issues identified Assessment 1. Lumbar radiculopathy 2. Moderate right disc protrusion at L5-S1 with mass effect on the right S1 nerve root Recommendations 1. Recommend a right L5-S1 and S1 transforaminal ALPHONSO for the patient. Procedure will be performed at 730AM tomorrow morning by Dr. Cason. NPO after midnight. Procedure was performed. Risks and benefits were reviewed and she would like to proceed with the procedure. 2. Continue Hydromorphone IV, Gabapentin 300mg TID, and Dexamethasone
[2016-09-08 15:22] VITALS: BP 158/81; PULSE 76; TEMP 36.9; O2SAT 95
[2016-09-08] MEDS: LISINOPRIL 10 MG TAB PO SCH (20:16)
[2016-09-08] MEDS: SERTRALINE HCL 50 MG TAB PO SCH (20:17)
[2016-09-08] MEDS: GEMFIBROZIL 600 MG TAB PO SCH (20:17)
[2016-09-08 23:20] VITALS: BP 136/75; PULSE 72; TEMP 36.6; O2SAT 97
[2016-09-09] MEDS: DEXAMETHASONE INJ 6 MG in SYRINGE 0 ML IV SCH ×2 (00:02→05:49)
[2016-09-09] MEDS: KETOROLAC TROMETHAMINE 30 MG/ML VIAL IV. SCH ×3 (00:02→12:26)
[2016-09-09] MEDS ORDERED: TRIAMCINOLONE ACET 40 MG/ML VIAL ONE (07:30)
--- NOTE | 2016-09-09 08:11 | Pain Clinic Procedure Note ---
Pain Management Procedure Note Procedure Date Sep 09, 2016. Procedure Description Procedure Time Out: side/site verified, patient ID confirmed, correct procedure Consent Obtained: written Performed By: Dr. Cason Indications: therapeutic Contraindications: none ASA Class: 2 Description: LUMBAR TRANSFORAMINAL EPIDURAL STEROID INJECTION Diagnosis: Intervertebral disc disorder. Herniated lumbar disc with radicular pain. Level injected: L5/S1, right transforaminal. Surgeon: Dr. Cason Prior to starting, the Patients diagnosis and the procedure were reviewed with the patient in detail. Possible risks, complications and alternative therapies were also reviewed. Patients questions were answered. Informed consent was obtained. Allergies and medication list was reviewed. The patient was brought to the fluoroscopy room and placed in prone position on the table. Immediately prior to starting the procedure, a time out was conducted with the staff and the patient where the patient was identified, proposed procedure was verified, consent was reviewed and the proper site for the planned procedure was identified. Fluoroscopy was utilized in performing the procedure to assist the placement of the needle, to evaluate the final position of the needle prior to injection and to avoid intravascular injection. Monitors used included intermittent blood pressure with automated device, continuous pulse oximetry and level of consciousness. Patient was not given any intravenous sedation and constant verbal contact was maintained throughout the procedure. Biplanar fluoroscopy was used to assist in placement of the needle as well as to evaluate final needle position prior to the injection. On examination, no signs of skin breakdown or infection were noted at the injection site. Lumbar-sacral area was prepped with DuraPrep followed by Betadine solution. Sterile drapes were applied. The appropriate interspace and disk was identified in a true AP view. The fluoroscope was then rotated to obtain a decubitus view in such a manner so that the superior articular process of the inferior vertebra was bisecting the pars inter-articularis of the vertebra above in two or in the 6 oclock position. A 22 Gauge 3.5 inch curved (15 degrees) spinal needle was inserted through the skin and subcutaneous tissues, after local anesthetic infiltration, and advanced in a co-axial technique. Needle tip was first placed on the infero-lateral margin of the pars inter-articularis. Once the bony margin was contacted, the C-arm was rotated to obtain a lateral view. The needle was slowly walked off the bone and advanced toward the anterior and superior aspect of the foramen. Patient did not experience any pain or paresthesia. Six inch micro bore tubing was attached to the needle and aspiration did not demonstrate CSF or blood. AP view was checked to ensure the needle tip was in close proximity to the nerve root in the proximal neural foramen lateral to the inferior articular process and in the 6 oclock position. 1 cc of Isovue 300 contrast was injected via the needle under live fluoroscopy. Spread of the contrast was noted in the epidural space and along the nerve root. Neither subdural or subarachnoid spread nor intravascular uptake was noted on plain fluoroscopy. Approximately 10 second digital subtraction angiogram at 8 f/s rate was done in AP view with additional contrast. No vascular uptake was noted. Next 80 mg of Kenalog was injected at each site followed by 2 cc of 2% Xylocaine MPF to flush the needle. The patient did not experience pain during the injection. Adequate hemostasis was noted. A sterile Band-Aid was applied to the injection site. Patient was monitored for 30 minutes and discharged with an accompanying adult. Discharge instructions were reviewed with the patient/caregiver. Any specific questions were answered. Patient/caregiver voiced understanding of the instructions. Follow-up appointment has been scheduled. Complications: none Patient Tolerated Procedure: well Post-procedure Vital Signs: reviewed and stable Discharge Instructions: reviewed & understood 1-4 All Voice Recognition; This chart was completed in part utilizing [employer] Voice Recognition Software. Random word insertions, pronoun errors, and incomplete sentences are an occasional consequence of this system due to software limitations and ambient noise. Any questions or concerns about the content, text or information contained within the body of this dictation should be directly addressed to the provider for clarification.
--- NOTE | 2016-09-09 08:18 | Pain Management Progress Note ---
Pain Management Progress Note Date of Service Sep 09, 2016. James Betancourt is well known to [facility] pain service where she was seen as an outpatient for consultation for right leg radicular pain. MRI was ordered as an outpatient and she was to be seen for follow-up in the office. However, prior to her outpatient appointment, she woke up with increased pain in the right lower extremity. Her pain was exacerbated by activities request daily living including weightbearing and ambulation. She presented to the emergency room and was admitted for analgesia and further evaluation. She was seen yesterday and was offered a lumbar transforaminal epidural steroid injection L5-S1 on the right side. She gave informed consent and proceeded to undergo the injection today. Injection was performed this morning uneventfully. She has pre-existing neuropathy in the distal lower extremity but does not report any motor weakness, saddle anesthesia, bowel or bladder incontinence. She denies any recent history of fever, night sweats, unexplained weight loss, or constitutional symptoms. Objective Vital Signs: Last Vital Signs Documentation Date Time Temp Pulse Resp B/P (MAP) Pulse Ox O2 Delivery O2 Flow Rate FiO2 09/09/16 00:05 Room Air 09/08/16 23:20 36.6 72 18 136/75 (95) 97 Physical Exam: She is alert and oriented. Mood and affect are appropriate. Short-term and long-term memory is intact. Sensorium is clear. Inspection of the lumbar spine demonstrates loss of lumbar lordosis. No lesions are noted in the lumbar spine region. Provocative testing of the facet joints is negative. Provocative testing of the sacroiliac joints bilaterally is negative. No myofascial tenderness or trigger points identifiable in the paraspinous musculature. Neurologically, straight leg raising is positive on the right side with increasing radicular pain with acutely stretch. Sensation is diminished in the distal right lower extremity. Motor strength in the lower extremity is symmetrical without deficit. No pathologic reflexes are noted in the lower extremities. Gait was not tested. Imaging MRI: non enhanced, reports reviewed, images reviewed MRI Findings L5-S1 right-sided disc herniation. Assessment 1. Herniated lumbar disc with radicular pain. Recommendations 1. After obtaining informed consent, the right-sided L5-S1 transforaminal epidural steroid was performed uneventfully. 2. Patient may be discharged today on mild opiate analgesics or ketorolac orally. She will be followed at [facility] pain clinic in 10 days to 2 weeks for follow-up evaluation and any further injections if required.
[2016-09-09 08:23] VITALS: BP 157/84; PULSE 62; TEMP 37; O2SAT 97
[2016-09-09] MEDS: METFORMIN HCL 500 MG TAB PO SCH (08:28)
[2016-09-09] MEDS: MULTIVITAMIN TAB PO SCH (08:29)
[2016-09-09] MEDS: GABAPENTIN 300 MG CAP PO SCH ×2 (08:29→14:43)
[2016-09-09 09:23] VITALS: BP 147/80; PULSE 61; TEMP 36.8; O2SAT 95
[2016-09-09 09:27] VITALS: O2SAT 95
[2016-09-09] MEDS: SODIUM CHLORIDE 0.9% 1000ML 1,000 ML IV SCH (09:35)
[2016-09-09 11:46] VITALS: BP 122/74; PULSE 70; TEMP 36.9; O2SAT 96
[2016-09-09 15:20] VITALS: BP 128/75; PULSE 68; TEMP 36.7; O2SAT 97
[2016-09-09] MEDS ORDERED: TRAM-10 PO (16:15)
--- NOTE | 2016-09-09 16:17 | Discharge Instructions ---
Discharge Instructions Date of Service Sep 09, 2016. Admission Reason for Admission: Disc Hernia Lumbar Spine Discharge Discharge Diagnosis / Problem: SAME ABOVE Discharge Goals Goal(s): Decrease discomfort, Improve function Activity Recommendations Activity Limitations: as noted below Lifting Limitations: until after follow-up appointment Exercise/Sports Limitations: until after follow-up appointment Shower/Bathe: no limitations Driving or Machine Use: no limitations . Instructions / Follow-Up Instructions / Follow-Up MEDICATIONS: Please take your prescriptions as instructed at your pre-op appointment. SPECIAL CARE: The following information is intended to answer some of the common questions and concerns regarding your surgery. Each patient is an individual and receives individual counselling throughout the course of treatment, from diagnosis to surgery all the way through recovery. What follows is not an exhaustive list, but should be a useful guide to some of the common questions and concerns patients have regarding their surgeries. These are not provided to keep you from calling us; rather, they give you something accurate and concrete to reference as you recover from your procedure. If you need us, we are available to you. As always, if you are not sure about something, call us at [phone]. MEDICAL EMERGENCIES: For these conditions, call 911 or go to your local hospital-based Emergency Department - not [facility] or equivalent. * Paralysis * Severe chest pain or difficulty breathing * Swelling or redness of either leg Spine procedures can be rather complex and though complications are rare, they do occur. In such cases, effective advice regarding emergency situations cannot always be addressed over the telephone. You may be referred to the emergency department for more effective management of your problem. Activity Limitations: It is important to give your body time to heal, so please limit your activities : * In general, don't do anything that moves your spine too much. You should avoid contact sports, twisting or heavy lifting while you recover. * 5-10 pounds is all you should attempt to lift. * You should not plan on driving for approximately 3 weeks and you should avoid traveling more than 30-45 minutes at a time. Longer trips should be broken down with walking breaks spaced appropriately. * Physical therapy is not usually required. * Walking and good posture practices will help you recover and regain your function. * Avoid straining or sudden changes in position. * In general, the goal is to take it easy and recover. Don't cause any new problems. Just relax. Showers: * Do not take a bath, use a Jacuzzi or hot tub or otherwise submerge your incision. * It is usually safe to take a shower 4-5 days after your surgery. * Your incision does not require any special creams or ointments. * Simply clean it with soap and water, dry and re-dress with a clean bandage afterwards. Incision: * Keep incision clean, dry and protected until your first follow-up appointment. * Some amount of drainage and redness is normal. Any drainage should be fairly clear and not have a foul odor. * If you feel anything is wrong or you have excessive drainage, please call us. * Your stitches and mauricio will be removed 10-14 days after your surgery. At the time of your first post-op visit. * Neck surgeries are typically closed with a suture underneath the skin. The steri-strips over the incision should be maintained until we see you in the office. Bracing: * You may be provided with a back or neck brace to encourage good posture and prevent injury. It will remind you not to do too much as you heal and will alert others to the fact that you have had a surgery. * Back braces may be removed for showers and when you are resting at home. They must be worn when you are walking around for any period of time or for travel. * For neck surgery, you will likely be provided with two cervical collars. The soft collar ([place] or foam rubber) is worn most commonly throughout the day and while sleeping. The plastic collar (provided at the hospital) is for showering/bathing. * Except while eating, collars should remain in place. More specifically, bracing is provided for a purpose and should be worn. * Please obtain your brace or collars prior to your operation and bring them to the hospital with you on the day of surgery. * You should also bring your collars to your post-op appointment with Dr. Escobedo. You should always take good care of your body and practice healthy habits, especially following surgery. You should: * Follow your doctor's treatment plan * Sit and stand properly with good posture (ears over shoulders, shoulders over hips) Don't slouch * Learn to lift correctly * Exercise regularly (low-impact aerobic exercise is especially good, but check with your doctor first) * Generally, be up and walking for 5-10 minutes at a time at least 3-4 times per day from the day you get home * Increasing walking to tolerance until you can walk for 20-30 minutes at a time * Attain and maintain a healthy body weight * Eat healthy foods ( a well-balanced, low-fat diet rich in fruits and vegetables) and get enough calcium * Avoid excessive use of alcohol When to call our office - If you notice any of the following: * Increased pain not relieve by pain medicine * Fevers greater then 100 degrees F, chills or flu symptoms * Increased redness around incision * Drainage from the incision that is not clear * Any foul smelling drainage * Swelling or fluid collection beneath the skin Miscellaneous: * In the hospital, you may be given a walker or cane for support while walking. These are temporary needs and are intended to prevent injuries due to falls. You may discontinue them when you feel strong and steady enough on your feet. * Sleep in a comfortable position. We find that many patients find a lounge chair or recliner with several pillows to be beneficial in the early post-operative period. * The support stockings should be used for 7-10 days and may be discontinued when you are back to walking more and conducting usual household activities. No problem is insignificant. We are here to help you and get you well. Contact us at [phone]. Definitions: Foraminotomy: If part of the disc or a bone spur (osteophyte) is pressing on a nerve as it leaves the vertebra (through an exit called the foramen), a foraminotomy may be done. Otomy means "to make an opening." A foraminotomy is making the opening of the foramen larger, so the nerve can exit without being compressed. Laminotomy: Similar to the foraminotomy, a laminotomy makes a larger opening, this time in your bony plate protecting your spinal canal and spinal cord (the lamina). The lamina may be pressing on your nerve, so the surgeon may make more room for the nerves using a laminotomy. Laminectomy: Sometimes, a laminotomy is not sufficient. The surgeon may need to remove all or part of the lamina. This procedure is called a laminectomy. This can often be done at many levels without any harmful effects. Current Hospital Diet Patient's current hospital diet: Regular Diet Discharge Diet Recommended Diet: Regular Diet Pending Studies Studies pending at discharge: no Medical Emergencies . Who to Call and When: Medical Emergencies: If at any time you feel your situation is an emergency, please call 911 immediately. . Non-Emergent Contact Non-Emergency issues call your: Primary Care Provider . "Provider Documentation" section prepared by Jeffry Quick. . VTE Core Measure Inpt VTE Proph given/why not?: Treatment not indicated
[2016-09-09 16:34] VITALS: BP 128/75; PULSE 68; TEMP 36.7; O2SAT 97
[2016-09-18] MEDS ORDERED: KETO10TA PO (10:53)
--- NOTE | 2016-09-24 11:15 | DISCHARGE SUMMARY ---
The patient was admitted to my service on 09/07/2016 with severe leg pain. She could not stand or ambulate. She needed pain control. She could not successfully be discharged from the Emergency Room. We got her medicated in the hospital; had pain management see her evaluated along with physical therapy and slowly but surely she did improve. Her working diagnosis was that of a disc herniation of the spine. Upon discharge, her vital signs are stable. Alert, oriented. She had no gross neurological deficit to my recollection. Some numbness. Images reviewed demonstrating a disc herniation L5-S1 on the right. DISPOSITION: She was discharged home in improved stable condition. Medications offered for pain. Followup in the office in approximately 1 week. Pain management follow up also provided.
[2016-11-03] MEDS ORDERED: CIPR1TAB11 PO (14:41)
== END 2016-09-09 18:09 | disposition home or self-care (01) ==
LOC: EDBD 04:18 → C.EDA 04:19 → C.MSN 06:34 → ENRESERV 07:10
PROVIDERS: ADMIT Orthopaedic Surgery Orthopaedic Surgery of the Spine; ATTEND Orthopaedic Surgery Orthopaedic Surgery of the Spine
DX: M51.16 Intervertebral disc disorders with radiculopathy, lumbar region (principal); I10 Essential (primary) hypertension; E78.5 Hyperlipidemia, unspecified; A52.16 Charcot's arthropathy (tabetic); G62.9 Polyneuropathy, unspecified; F41.9 Anxiety disorder, unspecified; Z79.84 Long term (current) use of oral hypoglycemic drugs; Z79.899 Other long term (current) drug therapy

== ENCOUNTER 2016-10-24 12:54 | Emergency (ER) | payer OTHER ==
[~2016-10-24] VITALS: Ht 165.1 cm; Wt 91.9 kg
[~2016-10-24 12:54] MED LIST changes: +KETO10TA PO
[2016-10-24 12:58] VITALS: TEMP 37.3; Ht 165.1 cm; Wt 91.9 kg
[2016-10-24] MEDS ORDERED: KETOROLAC TROMETHAMINE 30 MG/ML VIAL IV STA (13:19)
--- NOTE | 2016-10-24 13:29 | EMERGENCY ROOM VISIT NOTE ---
History First contact with patient: 13:03 Chief Complaint: ABDOMINAL PAIN Stated Complaint: ABD. PAIN-LEFT SIDE Nursing Triage Summary: pt reports hx of diverticulitis , abdominal pain X1 day ,pain increases with movement ,decreases when lying flat History of Present Illness The patient is a 51 year old female who presents to the Emergency Room with complaints of one day history of abdominal pain. The patient states she does have a history of diverticulitis, which has presented like this discomfort in the past. The patient states the pain began yesterday, and she did have an extra prescription lying around for Cipro and Flagyl, which she did not take for her last possible diverticulitis episode. The patient states again these medications yesterday. She denies any improvement in her symptoms. The patient reports sharp pain in the left lower quadrant, radiating to the upper abdomen which she describes 10/10 at its worst. The patient states she has a burning, 1/10 pain at rest. The patient states her pain improves with lying flat, but worsens with sitting upright, changing positions, or walking. The patient states this pain does feel like her previous flareups of diverticulitis , however it is worse at this time. The patient states she did have some diarrhea 2 days ago, but states she attributed this to eating tomatoes. The patient denies any nausea, vomiting, diarrhea, constipation, fever, chills, chest pain, dyspnea, or recent illness. The patient has taken nothing for her pain, except her chronic NSAIDs. She states she has not taken those in the past 2 days because she did not want to upset her stomach worse. Review of Systems A complete 10 point review of systems was reviewed with the patient with pertinent positives and negatives as per history of present illness. All else were negative. Past Medical/Surgical History Medical Problems: (1) Anxiety Disorder, Unspecified (2) Charcot's joint (3) CHARCOT'S JOINT, UNSPECIFIED SITE (4) Depressive disorder (5) Diabetes mellitus (6) Diverticulitis (7) Dyslipidemia (8) Hyperlipidemia Nec/Nos (9) Hypertension (10) Hypertension Nos (11) LLQ abdominal pain (12) Loss of sensation (13) Peripheral neuropathy (14) Peripheral neuropathy Herniated disc Social History Smoking Status: Former Smoker Alcohol Use: none Marital Status: Housing Status: lives with family Occupation Status: employed Current/Historical Medications Scheduled Diclofenac (Voltaren), Unknown Dose PO BID Gemfibrozil (Lopid), 600 MG PO HS Lisinopril (Prinivil), 10 MG PO HS Metformin Hcl (Glucophage), 500 MG PO QAM Multiple Vitamin (Multivitamin), 1 TAB PO QAM Sertraline (Zoloft), 150 MG PO HS Scheduled PRN Clonazepam (Klonopin), 0.5-1 TAB PO HS PRN for Sleep Meclizine HCl (Meclizine HCl), 12.5 MG PO TID PRN for Dizziness or Vertigo Allergies Coded Allergies: No Known Allergies (Verified , 10/24/16) Physical Exam Vital Signs Date Time Temp Pulse Resp B/P (MAP) Pulse Ox O2 Delivery O2 Flow Rate FiO2 10/24/16 16:56 87 20 98 Room Air 10/24/16 16:08 78 18 136/87 98 Room Air 10/24/16 15:33 80 18 123/87 97 Room Air 10/24/16 13:58 78 18 122/78 99 Room Air 10/24/16 12:58 37.3 102 16 133/91 96 Room Air Physical Exam VITALS: Vitals are noted on the nurse's note and reviewed by myself. Vital signs stable. GENERAL: This is a 51-year-old female, in no acute distress, nondiaphoretic, well-developed well-nourished. SKIN: The skin was without rashes, erythema, edema, or bruising. There is no tenting of the skin. Capillary reflex less than 2 seconds. HEAD: Normocephalic atraumatic. EARS: External auditory canals clear, tympanic membranes pearly ashraf without erythema or effusion bilaterally. EYES: Pupils equal round and reactive to light and accommodation. Conjunctivae without injection, sclerae without icterus. Extraocular movements intact. NOSE: Patent, turbinates without inflammation or discharge. No sinus tenderness. MOUTH: Mucous membranes moist. Tonsils are not enlarged. Pharynx without erythema or exudate. Uvula midline. Airway patent. Tongue does not deviate. NECK: Supple without nuchal rigidity. No lymphadenopathy. No thyromegaly. Cervical spine is nontender. No JVD. HEART: Regular rate and rhythm without murmurs gallops or rubs. LUNGS: Clear to auscultation bilaterally without wheezes, rales or rhonchi. No dullness to percussion. No retractions or accessory muscle use. ABDOMEN: Positive bowel sounds x 4. Normal tympanic percussion. There is tenderness on the left lower quadrant and left upper quadrant on palpation. Otherwise, the abdomen is soft, nontender, without masses or organomegaly. Toro sign negative. No guarding or rebound tenderness. MUSCULOSKELETAL: No muscle atrophy, erythema, or edema noted. Full range of motion without joint tenderness in all extremities. No tenderness to palpation. Normal gait. Strength 5/5 throughout. NEURO: Patient was alert and oriented to person place and time. Normal sensation to light and sharp touch. Deep tendon reflexes 2+ throughout. No focal neurological deficits. Medical Decision & Procedures ER Provider Diagnostic Interpretation: LABS: CBC did show mild leukocytosis at 13,000. Otherwise, this was without anemia, thrombocytopenia. CMP was negative for acute abnormalities. Electrolytes normal. Lipase is negative. Troponin and CK-MB were normal. CT Abdomen/Pelvis with IV and PO Contrast: FINDINGS: Lung bases are generally clear. No pneumoperitoneum identified. The imaged inferior cardiac chambers are unremarkable. The liver, gallbladder, pancreas and adrenal glands are within normal limits. Spleen is mildly enlarged, 16 cm. Kidneys, ureters and urinary bladder are within normal limits. Uterus and right adnexum are unremarkable. 1.6 cm cystic focus of the left adnexum is seen which appears unchanged and is nonspecific. The abdominal aorta is normal in course and caliber. No bulky adenopathy identified. Small sliding type hiatal hernia. There is a small duodenal diverticulum. No bowel obstruction. There is moderate wall thickening with surrounding inflammatory stranding centered around a diverticulum of the distal descending colon sigmoid junction which is seen within the same region as previously described acute diverticulitis on study dated 08/23/2015. Scattered additional colonic diverticuli are noted. No evidence of acute appendicitis. Soft tissues are unremarkable. There are degenerative changes of the lower lumbar spine. Bones appear intact. IMPRESSION: 1. Findings compatible with acute uncomplicated diverticulitis involving the junction of the descending and sigmoid colon. This is within the same region as previously described acute diverticulitis seen on study dated 08/23/2015. 2. Mild splenomegaly. 3. Small hiatal hernia. 4. Nonspecific 1.6 cm cystic structure of the left adnexum is noted. Laboratory Results 10/24/16 13:10 Red Blood Count 4.88, Mean Corpuscular Volume 84.2, Mean Corpuscular Hemoglobin 28.1, Mean Corpuscular Hemoglobin Concent 33.3, Mean Platelet Volume 10.1, Neutrophils (%) (Auto) 80.5, Lymphocytes (%) (Auto) 10.7, Monocytes (%) (Auto) 7.6, Eosinophils (%) (Auto) 0.8, Basophils (%) (Auto) 0.1, Neutrophils # (Auto) 10.49, Lymphocytes # (Auto) 1.40, Monocytes # (Auto) 0.99, Eosinophils # (Auto) 0.11, Basophils # (Auto) 0.01 10/24/16 13:10 Test 10/24/16 13:10 10/24/16 13:19 White Blood Count 13.04 K/uL (4.8-10.8) Red Blood Count 4.88 M/uL (4.2-5.4) Hemoglobin 13.7 g/dL (12.0-16.0) Hematocrit 41.1 % (37-47) Mean Corpuscular Volume 84.2 fL (80-100) Mean Corpuscular Hemoglobin 28.1 pg (25-34) Mean Corpuscular Hemoglobin Concent 33.3 g/dl (32-36) Platelet Count 237 K/uL (130-400) Mean Platelet Volume 10.1 fL (7.4-10.4) Neutrophils (%) (Auto) 80.5 % Lymphocytes (%) (Auto) 10.7 % Monocytes (%) (Auto) 7.6 % Eosinophils (%) (Auto) 0.8 % Basophils (%) (Auto) 0.1 % Neutrophils # (Auto) 10.49 K/uL (1.4-6.5) Lymphocytes # (Auto) 1.40 K/uL (1.2-3.4) Monocytes # (Auto) 0.99 K/uL (0.11-0.59) Eosinophils # (Auto) 0.11 K/uL (0-0.5) Basophils # (Auto) 0.01 K/uL (0-0.2) RDW Standard Deviation 42.3 fL (36.4-46.3) RDW Coefficient of Variation 13.9 % (11.5-14.5) Immature Granulocyte % (Auto) 0.3 % Immature Granulocyte # (Auto) 0.04 K/uL (0.00-0.02) Anion Gap 5.0 mmol/L (3-11) Est Creatinine Clear Calc Drug Dose 91.1 ml/min Estimated GFR () 97.6 Estimated GFR (Non- 84.2 BUN/Creatinine Ratio 19.0 (10-20) Calcium Level 9.8 mg/dl (8.5-10.1) Total Bilirubin 0.5 mg/dl (0.2-1) Aspartate Amino Transf (AST/SGOT) 11 U/L (15-37) Alanine Aminotransferase (ALT/SGPT) 24 U/L (12-78) Alkaline Phosphatase 85 U/L (45-117) Creatine Kinase MB 0.9 ng/ml (0.5-3.6) Troponin I < 0.015 ng/ml (0-0.045) Total Protein 7.9 gm/dl (6.4-8.2) Albumin 3.6 gm/dl (3.4-5.0) Globulin 4.3 gm/dl (2.5-4.0) Albumin/Globulin Ratio 0.8 (0.9-2) Lipase 103 U/L (73-393) Creatine Kinase MB Ratio (0-3.0) Medications Administered Medications (Trade) Dose Ordered Sig/Marielena Route Start Time Stop Time Status Last Admin Dose Admin Ketorolac Tromethamine (Toradol Inj) 30 mg NOW STAT IV 10/24/16 13:19 10/24/16 13:22 DC 10/24/16 13:29 30 MG Diphenhydramine HCl (Benadryl Inj) 50 mg NOW STAT IV 10/24/16 16:12 10/24/16 16:13 DC 10/24/16 16:17 50 MG ECG Indication: abdominal pain Rate (beats per minute): 96 Rhythm: normal sinus Findings: no acute ischemic change, no ectopy ED Course The patient was seen and evaluated as above. Labs, EKG, radiology studies were ordered. The patient was given 30 mg Toradol IV. All studies were reviewed, and results discussed with the patient and her at bedside. The patient did begin experiencing some itchiness and hives on her chest, abdomen, and back. I suspect this may be from the contrast. The patient was given 50 mg Benadryl via IV and did note significant improvement in her symptoms. The patient was monitored for approximately one hour without any worsening in symptoms. The patient has already been on her prescription antibiotics for diverticulitis. She'll continue these outpatient, and return to the emergency department for any worsening symptoms. I did discuss the case with Dr. Ramirez. He is in agreement with the assessment and plan. The patient was discharged home in good condition. Medical Decision The patient did present today with abdominal pain reminiscent of her previous history of diverticulitis. The patient did start taking Cipro and Flagyl yesterday. Based on the patient's workup, I do feel that this is an acute flareup of her diverticulitis. The patient will be treated outpatient, with instructions to return for worsening symptoms. Differential diagnosis includes: Bowel obstruction, diverticulitis, appendicitis , ovarian cyst, abscess, malignancy, and others. Impression Primary Impression: Diverticulitis Additional Impression: Allergic reaction to contrast dye Departure Information Dispostion Home / Self-Care Condition GOOD Referrals Tyrone Caba M.D. (PCP) Teddy Shrestha M.D. Patient Instructions ED Diverticulitis, [facility] Additional Instructions You have been treated in the Emergency Department your Abdominal Pain. There is evidence for acute diverticulitis. This does not appear to be complicated at this time, and I suspect outpatient management should be appropriate at this time. Take your Cipro and Flagyl as prescribed to you by your PCP. You may take your hydrocodone which you have at home if needed for pain. This is a narcotic medication. You cannot drive or consume alcohol while on this medicine. This medicine should only be used for pain that cannot be controlled with [id number] pain medicines. You may use your previously prescribed Zofran to be used for any nausea or vomiting. Take as prescribed. You should also take Benadryl 25-50mg every 4-6 hours due to hives and itchiness after contrast dye. Please use this medication regularly over the next 24-48 hours to prevent a worsening reaction. For pain control, you can use the following [id number] medicines (if >12 yo): Ibuprofen(Motrin, Advil) may be used for fever or pain. Use 600mg every six hours as needed. Take with food. Avoid using more than 2400mg in a 24 hour period. Do not use 2400mg per day for more than three consecutive days without physician direction. Prolonged inappropriate use can lead to stomach upset or ulcers. (AND/OR) Acetaminophen(Tylenol) may be used for fever or pain. Use 1000mg every six hours as needed. Avoid using more than 3000mg in a 24 hour period. Drink plenty of water and stay well hydrated. As discussed, you may want to consider a clear liquid diet until your symptoms improve. You may eat as tolerated. As with any trip to the Emergency Department, you should follow-up with your Primary Care Provider and dictaphone technician from today's visit. Return to the emergency department if your symptoms persist despite treatment plan outlined above or if the following symptoms occur: increased fevers, chills , worsening nausea/vomiting, blood in your stool or urine. Problem Qualifiers Primary Impression: Diverticulitis Diverticulitis site: large intestine Diverticulitis bleeding: without bleeding Diverticulitis complication: without perforation or abscess Qualified Codes: K57.32 - Diverticulitis of large intestine without perforation or abscess without bleeding Additional Impression: Allergic reaction to contrast dye Encounter type: initial encounter Qualified Codes: T50.8X5A - Adverse effect of diagnostic agents, initial encounter
[2016-10-24 13:33] LABS: BASO % 0.1 %; BASO ABS # 0.01 K/uL (0-0.2); COMPLETE YES; EOS % 0.8 %; HEMATOCRIT 41.1 % (37-47); IG% 0.3 %; LYMPH % 10.7 %; MEAN CELL VOLUME 84.2 fL (80-100); MEAN CORPUSCULAR HEMOGLOBIN 28.1 pg (25-34); MEAN CORPUSCULAR HGB CONC 33.3 g/dl (32-36); MEAN PLATELET VOLUME 10.1 fL (7.4-10.4); MONO % 7.6 %; NEUT % 80.5 %; PLATELET COUNT 237 K/uL (130-400); RED BLOOD COUNT 4.88 M/uL (4.2-5.4); WHITE BLOOD COUNT 13.04 K/uL (4.8-10.8)
[2016-10-24 13:41] LABS: ALT/SGPT 24 U/L (12-78); BLOOD UREA NITROGEN 15 mg/dl (7-18); CALCIUM 9.8 mg/dl (8.5-10.1); CARBON DIOXIDE 28 mmol/L (21-32); CHLORIDE 106 mmol/L (98-107); GLUCOSE 110 mg/dl (70-99); SODIUM 139 mmol/L (136-145)
[2016-10-24] MEDS ORDERED: DICL50TA3 PO (13:41)
[2016-10-24] MEDS ORDERED: OPTIRAY 320 IV PRN (13:45)
[2016-10-24 13:46] LABS: ALB/GLOB RATIO 0.8 (0.9-2); ALKALINE PHOSPHATASE 85 U/L (45-117); AST/SGOT 11 U/L (15-37)
[2016-10-24 16:08] VITALS: BP 136/87
[2016-10-24] MEDS ORDERED: DiphenhydrAMINE HCL 50 MG/ML VIAL IV STA (16:12)
--- NOTE | 2016-10-24 16:14 | DIAGNOSTIC IMAGING REPORT ---
ABD/PELVIS IV AND ORAL CONT HISTORY: 51 years-old Female LLQ Abdominal pain acute left lower quadrant abdominal pain. Initial exam. COMPARISON: CT 08/23/2015 TECHNIQUE: Multiple axial CT images of the abdomen and pelvis were obtained following the intravenous administration of 121 mL Optiray 320. Oral contrast was also used. A dose lowering technique was used consistent with the principals of CASANDRA. FINDINGS: Lung bases are generally clear. No pneumoperitoneum identified. The imaged inferior cardiac chambers are unremarkable. The liver, gallbladder, pancreas and adrenal glands are within normal limits. Spleen is mildly enlarged, 16 cm. Kidneys, ureters and urinary bladder are within normal limits. Uterus and right adnexum are unremarkable. 1.6 cm cystic focus of the left adnexum is seen which appears unchanged and is nonspecific. The abdominal aorta is normal in course and caliber. No bulky adenopathy identified. Small sliding type hiatal hernia. There is a small duodenal diverticulum. No bowel obstruction. There is moderate wall thickening with surrounding inflammatory stranding centered around a diverticulum of the distal descending colon sigmoid junction which is seen within the same region as previously described acute diverticulitis on study dated 08/23/2015. Scattered additional colonic diverticuli are noted. No evidence of acute appendicitis. Soft tissues are unremarkable. There are degenerative changes of the lower lumbar spine. Bones appear intact. IMPRESSION: 1. Findings compatible with acute uncomplicated diverticulitis involving the junction of the descending and sigmoid colon. This is within the same region as previously described acute diverticulitis seen on study dated 08/23/2015. 2. Mild splenomegaly. 3. Small hiatal hernia. 4. Nonspecific 1.6 cm cystic structure of the left adnexum is noted. The above report was generated using voice recognition software. It may contain grammatical, syntax or spelling errors. Electronically signed by: Glenn Mathews M.D. 10/24/2016 4:13 PM Dictated Date/Time: 10/24/2016 4:07 PM
[2016-10-24 16:56] VITALS: PULSE 87; O2SAT 98
[2016-11-03] MEDS ORDERED: CIPR1TAB11 PO (14:41)
== END 2016-10-24 17:24 | disposition home or self-care (01) ==
LOC: C.EDB 12:55 → C.EDC 17:24
DX: K57.32 Diverticulitis of large intestine without perforation or abscess without bleeding (principal); T50.8X5A Adverse effect of diagnostic agents, initial encounter; F41.9 Anxiety disorder, unspecified; E11.9 Type 2 diabetes mellitus without complications; E78.5 Hyperlipidemia, unspecified; I10 Essential (primary) hypertension; F32.9 Major depressive disorder, single episode, unspecified; F17.200 Nicotine dependence, unspecified, uncomplicated

== ENCOUNTER 2016-12-10 12:26 | Observation (INO) | payer OTHER ==
[~2016-12-10] VITALS: Ht 165.1 cm; Wt 95.8 kg
[~2016-12-10 12:26] MED LIST changes: +CIPR1TAB11 PO; +DICL50TA3 PO; -KETO10TA PO; -ONDA4TAB10 SL
[2016-12-10] MEDS ORDERED: SODIUM CHLORIDE 0.9% 1000ML 1,000 ML IV STA ×2 (12:56→16:55)
[2016-12-10] MEDS ORDERED: PROMETHAZINE HCL INJ 25 MG in SODIUM CHLORIDE 0.9% 50ML 50 ML IV STA (12:56)
[2016-12-10] MEDS ORDERED: MoRPHine SULFATE 10 MG/ML CARP/VIAL IV PRN (13:00)
[2016-12-10 13:27] LABS: BASO % 0.1 %; BASO ABS # 0.01 K/uL (0-0.2); COMPLETE YES; EOS % 0.1 %; HEMATOCRIT 41.7 % (37-47); IG% 0.4 %; LYMPH % 2.2 %; MEAN CELL VOLUME 83.2 fL (80-100); MEAN CORPUSCULAR HEMOGLOBIN 28.9 pg (25-34); MEAN CORPUSCULAR HGB CONC 34.8 g/dl (32-36); MEAN PLATELET VOLUME 10.1 fL (7.4-10.4); MONO % 4.4 %; NEUT % 92.8 %; PLATELET COUNT 200 K/uL (130-400); RED BLOOD COUNT 5.01 M/uL (4.2-5.4); WHITE BLOOD COUNT 13.73 K/uL (4.8-10.8)
[2016-12-10 13:36] LABS: PROTHROMBIN TIME (PATIENT) 10.3 SECONDS (9.0-12.0)
[2016-12-10 14:01] LABS: POTASSIUM 3.7 mmol/L (3.5-5.1)
[2016-12-10 14:06] LABS: BUN/CREATININE RATIO 19.2 (10-20); CALCIUM 10.1 mg/dl (8.5-10.1); CREATININE 0.84 mg/dl (0.60-1.20)
--- NOTE | 2016-12-10 14:39 | DIAGNOSTIC IMAGING REPORT ---
ABDOMEN 2VIEW W/PA CHEST RTN HISTORY: 51 years-old Female ABDOMINAL PAIN/GI acute generalized abdominal pain with recent back surgery. COMPARISON: CT abdomen and pelvis 10/24/2016, chest radiograph 10/05/2011 TECHNIQUE: Frontal view of the chest with lateral decubitus and supine views of the abdomen FINDINGS: Cardiomediastinal and hilar silhouettes are within normal limits. There is no pneumothorax, pleural effusion, focal airspace consolidation or overt pulmonary edema. Mild right hemidiaphragmatic elevation. The bones are grossly intact. No pneumoperitoneum on the left lateral decubitus film. There is oral contrast within the stomach and bowel. Mildly dilated loops of small bowel are seen in left upper abdomen measuring up to 3.5 cm. No definite urolith or fracture identified. Phlebolith of the left hemipelvis. IMPRESSION: 1. Oral contrast within the stomach and small bowel with mildly dilated loops of bowel in the left midabdomen measuring up to 3.5 cm. Ileus or low-grade small bowel obstruction are differential considerations. 2. No acute cardiopulmonary process. The above report was generated using voice recognition software. It may contain grammatical, syntax or spelling errors. Electronically signed by: Glenn Mathews M.D. 12/10/2016 2:38 PM Dictated Date/Time: 12/10/2016 2:35 PM
--- NOTE | 2016-12-10 16:34 | DIAGNOSTIC IMAGING REPORT ---
CT SCAN OF THE ABDOMEN AND PELVIS WITHOUT IV CONTRAST CLINICAL HISTORY: Generalized abdominal pain. Diarrhea. COMPARISON STUDY: Abdominal CT dated 10/24/2016. TECHNIQUE: CT scan of the abdomen and pelvis is performed from the lung bases to the proximal femora. Images are reviewed in the axial, sagittal, and coronal planes. IV contrast was not administered for this examination. A dose lowering technique was utilized adhering to the principles of ALARA. CT DOSE: 1283.38 mGy.cm FINDINGS: Lung bases: The heart is normal in size and without pericardial effusion. The lung bases are clear. There is a small hiatal hernia. Liver: The unenhanced liver is enlarged measuring 22.8 cm in length. The liver demonstrates diffusely diminished attenuation consistent with hepatic steatosis. There is no intrahepatic biliary ductal dilatation. Gallbladder: Unremarkable. Spleen: The spleen is enlarged measuring 16.0 cm in length. Pancreas: Unremarkable. Adrenal glands: Unremarkable. Kidneys: The unenhanced kidneys are normal in size and without hydronephrosis. There are no renal calculi identified. There is no evidence of contour deforming renal mass lesion. Abdominal vasculature: The abdominal aorta is normal in course and caliber. Bowel: There is mild colonic diverticulosis without CT evidence of acute diverticulitis. Mild wall thickening and edema is seen in the left colon with faint pericolonic infiltration. The appearance is consistent with a mild nonspecific colitis. No bowel obstruction is seen. The appendix is normal as visualized. Peritoneum: There is no intraperitoneal free air or abdominal ascites. Lymphadenopathy: None. Pelvic viscera: The bladder, uterus, and adnexa are normal as visualized. Skeletal structures: No lytic or blastic lesions are seen. IMPRESSION: 1. Findings are consistent with a mild colitis of the left colon, likely on an infectious or inflammatory basis. 2. Mild colonic diverticulosis without CT evidence of acute diverticulitis. 3. Hepatomegaly and hepatic steatosis. 4. Splenomegaly. 5. Additional findings as above. Electronically signed by: Bob Lloyd M.D. 12/10/2016 4:33 PM Dictated Date/Time: 12/10/2016 4:20 PM
[2016-12-10] MEDS ORDERED: PIPERACILLIN/TAZOBACTAM 4.5 GM/100ML D5W IV STA (16:55)
--- NOTE | 2016-12-10 17:19 | History and Physical ---
History & Physical Date & Time of Service: Dec 10, 2016 at 17:13 Chief Complaint: Back Surg. Thanges., Abd. Pain, D,N Primary Care Physician: Tyrone Caba M.D. History of Present Illness Source: patient This is a 51 yo F with PMhx of HTN, HLD, prediabetes, benign monoclonal hypergammaglobulinemia, lower back pain, peripheral neuropathy, 4 diverticulitis attacks in past 6 months, Vit d deficiency, anxiety, depression, obesity who presents with abdominal pain, nausea, and constipation x 2 days. Her is present with her at bedside. Pt reports that she recently underwent microdiscectomy by Dr. Mota in [facility] on 12/08 and everything went well. She was discharged home yesterday with pain well controlled. She was able to tolerate a normal diet with adequate fluid intake yesterday. Today she woke up and felt abdominal cramping in the epigastric/RUQ region. This pain does not resemble previous diverticulitis attacks as that pain is typically LLQ. Pt realized no BM x 2 days, so gave herself a fleets enema. Stool was formed without hematochezia or BRBPR. She admits to feeling bloated and increased nausea after the enema. She presented to the ED with worsening abdominal pain. WBC is only minimally elevated at [address] of the abdomen is showing colitis, without evidence of acute diverticulitis. Past Medical/Surgical History Medical Problems: (1) Anxiety Disorder, Unspecified Status: Chronic (2) CHARCOT'S JOINT, UNSPECIFIED SITE Status: Chronic (3) Diverticulitis Status: Resolved (4) Hyperlipidemia Nec/Nos Status: Chronic (5) Hypertension Nos Status: Chronic (6) LLQ abdominal pain Status: Resolved (7) Peripheral neuropathy Status: Chronic prediabetes benign monoclonal hypergammaglobulinemia lower back pain 4 diverticulitis attacks in past 6 months Vit d deficiency anxiety depression obesity Surgical Hx: Microdiscectomy on 12/08/16 Social History Smoking Status: Former Smoker Smokeless Tobacco Use: No Alcohol Use: none Drug Use: none Marital Status: Housing status: lives with family Occupational Status: employed Immunizations History of Influenza Vaccine: N/A History of Tetanus Vaccine?: Unknown History of Pneumococcal: No History of Hepatitis B Vaccine: Unknown Multi-Drug Resistant Organisms History of MDRO: No Allergies Uncoded Allergies: CT DYE (Allergy, Intermediate, HIVES, 12/10/16) Home Medications Scheduled Gemfibrozil (Lopid), 600 MG PO HS Lisinopril (Prinivil), 10 MG PO HS Metformin Hcl (Glucophage), 500 MG PO QAM Multiple Vitamin (Multivitamin), 1 TAB PO QAM Sertraline (Zoloft), 150 MG PO HS Scheduled PRN Clonazepam (Klonopin), 0.5-1 TAB PO HS PRN for Sleep Meclizine HCl (Meclizine HCl), 12.5 MG PO TID PRN for Dizziness or Vertigo Review of Systems Constitutional: + chills, + fatigue, No fever, No sweats Eyes: No redness, No diplopia ENT: No nasal symptoms, No sore throat, No tinnitus, No trouble swallowing Respiratory: + cough (after surgery but has resolved), No sputum, No wheezing, No shortness of breath, No dyspnea on exertion Cardiovascular: No chest pain, No edema Abdomen: + pain, + nausea, No vomiting, No diarrhea, No constipation Musculoskeletal: No joint pain, No swelling Genitourinary - Female: No dysuria Neurologic: No memory loss, No numbness/tingling, No balance problems Psychiatric: No depression symptoms, No anxiety Endocrine: + fatigue Integumentary: No rash, No itch Physical Exam Vital Signs Date Time Temp Pulse Resp B/P (MAP) Pulse Ox O2 Delivery O2 Flow Rate FiO2 12/10/16 17:05 99 17 93/59 92 Room Air 12/10/16 15:30 99 18 84/54 93 Room Air 12/10/16 15:12 100 18 91/51 93 Room Air 12/10/16 14:36 103 18 90/62 96 Room Air 12/10/16 13:56 97 Nasal Cannula 2.0 12/10/16 13:55 88 Room Air 12/10/16 13:31 110 12/10/16 13:30 106 18 137/86 93 12/10/16 13:30 93 Room Air 12/10/16 12:37 37.3 118 17 104/74 98 Room Air General Appearance: WD/WN, + mild distress Head: normocephalic, atraumatic Eyes: PERRL, EOMI ENT: hearing grossly normal, pharynx normal Neck: supple, no JVD Respiratory/Chest: lungs clear, no respiratory distress, no accessory muscle use, + pertinent finding (+ expiratory wheeze in RUL) Cardiovascular: regular rate, rhythm, no murmur, normal peripheral pulses, + tachycardia Abdomen/GI: soft, + pertinent finding (+ tinkling bowel sounds in epigastric and RUQ, + pain with palpation in epigastric and RUQ, + splenomegaly) Back: no CVA tenderness, + pertinent finding (Vertical Lumbar spine incision is clear of surrounding erythema, edges closed, dressing is c/d/i. ) Extremities/Musculoskelatal: no calf tenderness, no pedal edema Neurologic/Psych: alert, normal mood/affect, oriented x 3 Skin: normal color, warm/dry Diagnostics Laboratory Results Results Past 24 Hours Test 12/10/16 13:00 Range/Units White Blood Count 13.73 4.8-10.8 K/uL Red Blood Count 5.01 4.2-5.4 M/uL Hemoglobin 14.5 12.0-16.0 g/dL Hematocrit 41.7 37-47 % Mean Corpuscular Volume 83.2 80-100 fL Mean Corpuscular Hemoglobin 28.9 25-34 pg Mean Corpuscular Hemoglobin Concent 34.8 32-36 g/dl Platelet Count 200 130-400 K/uL Mean Platelet Volume 10.1 7.4-10.4 fL Neutrophils (%) (Auto) 92.8 % Lymphocytes (%) (Auto) 2.2 % Monocytes (%) (Auto) 4.4 % Eosinophils (%) (Auto) 0.1 % Basophils (%) (Auto) 0.1 % Neutrophils # (Auto) 12.74 1.4-6.5 K/uL Lymphocytes # (Auto) 0.30 1.2-3.4 K/uL Monocytes # (Auto) 0.61 0.11-0.59 K/uL Eosinophils # (Auto) 0.02 0-0.5 K/uL Basophils # (Auto) 0.01 0-0.2 K/uL RDW Standard Deviation 43.4 36.4-46.3 fL RDW Coefficient of Variation 14.3 11.5-14.5 % Immature Granulocyte % (Auto) 0.4 % Immature Granulocyte # (Auto) 0.05 0.00-0.02 K/uL Prothrombin Time 10.3 9.0-12.0 SECONDS Prothromb Time International Ratio 1.0 0.9-1.1 Activated Partial Thromboplast Time 25.4 21.0-31.0 SECONDS Partial Thromboplastin Ratio 1.0 Sodium Level 139 136-145 mmol/L Potassium Level 3.7 3.5-5.1 mmol/L Chloride Level 104 98-107 mmol/L Carbon Dioxide Level 21 21-32 mmol/L Anion Gap 14.0 3-11 mmol/L Blood Urea Nitrogen 16 7-18 mg/dl Creatinine 0.84 0.60-1.20 mg/dl Est Creatinine Clear Calc Drug Dose 88.3 ml/min Estimated GFR () 92.0 Estimated GFR (Non- 79.3 BUN/Creatinine Ratio 19.2 10-20 Random Glucose 141 70-99 mg/dl Calcium Level 10.1 8.5-10.1 mg/dl Total Bilirubin 0.7 0.2-1 mg/dl Direct Bilirubin 0.2 0-0.2 mg/dl Aspartate Amino Transf (AST/SGOT) 19 15-37 U/L Alanine Aminotransferase (ALT/SGPT) 29 12-78 U/L Alkaline Phosphatase 72 45-117 U/L Total Protein 8.5 6.4-8.2 gm/dl Albumin 4.1 3.4-5.0 gm/dl Lipase 72 73-393 U/L Diagnostic Radiology CT SCAN OF THE ABDOMEN AND PELVIS WITHOUT IV CONTRAST CLINICAL HISTORY: Generalized abdominal pain. Diarrhea. COMPARISON STUDY: Abdominal CT dated 10/24/2016. TECHNIQUE: CT scan of the abdomen and pelvis is performed from the lung bases to the proximal femora. Images are reviewed in the axial, sagittal, and coronal planes. IV contrast was not administered for this examination. A dose lowering technique was utilized adhering to the principles of ALARA. CT DOSE: 1283.38 mGy.cm FINDINGS: Lung bases: The heart is normal in size and without pericardial effusion. The lung bases are clear. There is a small hiatal hernia. Liver: The unenhanced liver is enlarged measuring 22.8 cm in length. The liver demonstrates diffusely diminished attenuation consistent with hepatic steatosis. There is no intrahepatic biliary ductal dilatation. Gallbladder: Unremarkable. Spleen: The spleen is enlarged measuring 16.0 cm in length. Pancreas: Unremarkable. Adrenal glands: Unremarkable. Kidneys: The unenhanced kidneys are normal in size and without hydronephrosis. There are no renal calculi identified. There is no evidence of contour deforming renal mass lesion. Abdominal vasculature: The abdominal aorta is normal in course and caliber. Bowel: There is mild colonic diverticulosis without CT evidence of acute diverticulitis. Mild wall thickening and edema is seen in the left colon with faint pericolonic infiltration. The appearance is consistent with a mild nonspecific colitis. No bowel obstruction is seen. The appendix is normal as visualized. Peritoneum: There is no intraperitoneal free air or abdominal ascites. Lymphadenopathy: None. Pelvic viscera: The bladder, uterus, and adnexa are normal as visualized. Skeletal structures: No lytic or blastic lesions are seen. IMPRESSION: 1. Findings are consistent with a mild colitis of the left colon, likely on an infectious or inflammatory basis. 2. Mild colonic diverticulosis without CT evidence of acute diverticulitis. 3. Hepatomegaly and hepatic steatosis. 4. Splenomegaly. 5. Additional findings as above. Electronically signed by: Bob Lloyd M.D. 12/10/2016 4:33 PM Dictated Date/Time: 12/10/2016 4:20 PM The status of this report is Signed. ABDOMEN 2VIEW W/PA CHEST RTN HISTORY: 51 years-old Female ABDOMINAL PAIN/GI acute generalized abdominal pain with recent back surgery. COMPARISON: CT abdomen and pelvis 10/24/2016, chest radiograph 10/05/2011 TECHNIQUE: Frontal view of the chest with lateral decubitus and supine views of the abdomen FINDINGS: Cardiomediastinal and hilar silhouettes are within normal limits. There is no pneumothorax, pleural effusion, focal airspace consolidation or overt pulmonary edema. Mild right hemidiaphragmatic elevation. The bones are grossly intact. No pneumoperitoneum on the left lateral decubitus film. There is oral contrast within the stomach and bowel. Mildly dilated loops of small bowel are seen in left upper abdomen measuring up to 3.5 cm. No definite urolith or fracture identified. Phlebolith of the left hemipelvis. IMPRESSION: 1. Oral contrast within the stomach and small bowel with mildly dilated loops of bowel in the left midabdomen measuring up to 3.5 cm. Ileus or low-grade small bowel obstruction are differential considerations. 2. No acute cardiopulmonary process. The above report was generated using voice recognition software. It may contain grammatical, syntax or spelling errors. Electronically signed by: Glenn Mathews M.D. 12/10/2016 2:38 PM Dictated Date/Time: 12/10/2016 2:35 PM The status of this report is Signed. Impression Assessment and Plan 51 yo F with PMhx of HTN, HLD, prediabetes, benign monoclonal hypergammaglobulinemia, lower back pain, peripheral neuropathy, 4 diverticulitis attacks in past 6 months, Vit d deficiency, anxiety, depression, obesity who presents with abdominal pain, nausea, and constipation x 2 days. Abdominal Pain Colitis - Admit for observation - Pt received zosyn in ED x 1 dose--> will switch to cipro/flagyl at this time - CT reviewed showing colitis, no sbo, no acute diverticulitis - Pt likely slightly hypotensive secondary to dehydration/poor oral intake/and administering a fleets enema this morning. - s/p 2 L NSS. Will maintain IVFs overnight at 100ml/hr and allow clear liquid diet - does not appear to be infectious at this time. - WBC only slightly elevated - Afebrile - Follow am labs - Will check c. diff with hx of multiple antibiotics and start on probiotic Lower back pain s/p microdiscectomy - insicion site appears well healed without surrounding erythema - does not appears to be a source for sepsis - Completed on 12/[address] Mota in [place] Anxiety Depression Fibromyalgia - Continue zoloft 150 mg HS, clonazepam 0.25 mg HS for sleep pre-diabetes - diet controlled - clear liquid diet for now - had a1c checked 08/23 = 5.6, recheck with am labs Benign monoclonal hypergammaglobulinemia- noted DVT ppx: Teds, scds, ambulatory CODE STATUS: FULL CODE Disposition: From home, discharge likely within 24 hours as admitted on observation. Resident Physician Supervision Note: I was present with HOSSEIN Grubbs during the history and exam. I discussed the case with the PA and agree with the findings and plan as documented in the note. Any exceptions or clarifications are listed here: 51 y/o F Hx recurrent diverticulitis, glucose intolerance, anxiety, MGUS, recent microdiscectomy - presents with abdominal pain - CT abdomen reveals colitis - Pt was hypotensive on arrival - may have been due volume depletion as she has avoided PO intake for 2 days OE AAOx3 S1,2 R CTAB Diffuse tenderness No CCE P: Placed on Cipro / Flagyl - we do not currently suspect sepsis as her vitals have normalized with fluids and she is afebrile She has recently had antibiotics for diverticulitis so that we will r/o Cdiff She did receive a dose of Zosyn in the ER - coverage should be expanded if hypotension recurs No current evidence of obstruction or acute diverticulitis. Documented By: Sancho Luu Level of Care Telemetry Resuscitation Status FULL RESUSCITATION VTE Prophylaxis Risk Level: Low Given or contraindicated: Viv Tee, SCD's
[2016-12-10] MEDS ORDERED: ONDANSETRON INJ 2 MG/ML 2 ML VIAL IV PRN (17:45)
[2016-12-10] MEDS ORDERED: CLONAZEPAM 0.5 MG TAB PO PRN (17:45)
[2016-12-10] MEDS ORDERED: MECLIZINE HCL 12.5 MG TAB PO PRN (17:45)
[2016-12-10] MEDS ORDERED: ALUMINUM/MAGNESIUM/SIMETH (MAALOX MAX) 30 ML UDC PO PRN (17:45)
[2016-12-10] MEDS ORDERED: POLYETHYLENE (MIRALAX) 17 GM PACK PO PRN (17:45)
[2016-12-10 18:05] VITALS: BP 106/66; PULSE 99; TEMP 37.5; Ht 165.1 cm; Wt 95.8 kg
[2016-12-10 18:10] VITALS: O2SAT 96
[2016-12-10] MEDS ORDERED: IV FLUIDS COMPLETED PRN (19:30)
[2016-12-10] MEDS: METRONIDAZOLE / NSS 500 MG in PREMIXED NSS 100 ML IV SCH (20:20)
[2016-12-10] MEDS: SODIUM CHLORIDE 0.9% 1000ML 1,000 ML IV SCH (20:21)
[2016-12-10] MEDS: CIPROFLOXACIN / D5W 400 MG in PREMIXED IN D5W 200 ML IV SCH (22:08)
[2016-12-10] MEDS: SERTRALINE HCL 100 MG TAB PO SCH (22:08)
[2016-12-10] MEDS: GEMFIBROZIL 600 MG TAB PO SCH (22:08)
[2016-12-10 22:15] LABS: URINE APPEARANCE CLEAR (CLEAR); URINE BILIRUBIN NEG (NEG); URINE COLOR YELLOW; URINE EPITHELIAL CELL AUTO >30 /lpf (0-5); URINE NITRITE NEG (NEG); URINE PH 5.5 (4.5-7.5); URINE SPECIFIC GRAVITY 1.016 (1.000-1.030); UROBILINOGEN NEG (NEG)
--- NOTE | 2016-12-10 22:16 | EMERGENCY ROOM VISIT NOTE ---
ED Visit Note First contact with patient: 12:42 Chief Complaint: I'm having a lot of abdominal cramping. History of Present Illness: Ms. Bullard is a 51 year-old white female who ambulates into the ED accompanied by her complaining of diffuse. Historically patient reports a history of diverticulitis 4; she was encouraged to follow-up with a general surgeon proximally one month ago but that was delayed for recent back surgery, 2 days status post microdiscectomy. Patient reports acute onset of diffuse abdominal pain with left-sided prominence that started approximately 4-[address] her pain starting in the epigastric area and extending down the central portion of the abdomen and then to the left side of the abdomen. She rates her discomfort 8/ 10. There is some mild radiation of her discomfort into the right side of the abdomen. She has not identified any aggravating or alleviating factors related to the pain. She has not taken a medication for pain prior to arrival at the hospital. Associated with her pain she has been nauseated but has not vomited, she has had a decreased appetite and she reports she had some constipation but then used a fleets enema and now she is having watery stools and when she observed the stool she felt it was red in color. She does report she is Zofran for her nausea prior to arrival at the hospital and had no relief. Additionally she does report that she has had a mild nonproductive cough since her surgery. This was associated with some mild dyspnea on exertion that started late last night. Patient denies fevers, chills, sweats, skin eruptions, skin color changes, upper respiratory tract symptoms, shortness of breath, chest pain, black/tarry stools, urinary symptoms, hematuria, vaginal bleeding, vaginal discharge, back/ flank pain. Review of Systems: As noted above in history of present illness. All body systems were reviewed and found to be negative as noted above. Past Medical History: As previously noted and hypertension, dyslipidemia, peripheral neuropathy, Charcot's joint, anxiety, depression. Current Medications: Medications Dose Route/Sig Max Daily Dose Days Date Category Zoloft (Sertraline HCl) 100 Mg Tab 150 Mg PO HS 08/31/16 Reported Multivitamin (Multiple Vitamin) 1 Tab Tab 1 Tab PO QAM 04/30/16 Reported Meclizine HCl 12.5 Mg Tab 12.5 Mg PO TID PRN 1/2/17 Reported Prinivil (Lisinopril) 10 Mg Tab 10 Mg PO HS 08/23/15 Reported Klonopin (Clonazepam) 0.5 Mg Tab 0.5-1 Tab PO HS PRN 08/23/15 Reported Glucophage (Metformin Hcl) 500 Mg Tab 500 Mg PO QAM 10/05/11 Reported Lopid (Gemfibrozil) 600 Mg Tab 600 Mg PO HS 11/04/08 Reported Allergies to Medications: Patient denies. Social History: Patient is currently employed; she feels safe in her home environment; she denies tobacco and alcohol use. Physical Examination: Vital Signs: Date Time Temp Pulse Resp B/P (MAP) Pulse Ox O2 Delivery O2 Flow Rate FiO2 12/10/16 17:25 101 12/10/16 17:05 99 17 93/59 92 Room Air 12/10/16 15:30 99 18 84/54 93 Room Air 12/10/16 15:12 100 18 91/51 93 Room Air 12/10/16 14:36 103 18 90/62 96 Room Air 12/10/16 13:56 97 Nasal Cannula 2.0 12/10/16 13:55 88 Room Air 12/10/16 13:31 110 12/10/16 13:30 106 18 137/86 93 12/10/16 13:30 93 Room Air 12/10/16 12:37 37.3 118 17 104/74 98 Room Air GENERAL: 51-year-old female in moderate distress due to pain, nontoxic-appearing , afebrile and hemodynamically stable. NEUROLOGICAL: Awake, alert and oriented to person, place and time. Answering questions appropriately and following commands. Normal gait. Good hand eye coordination. SKIN: Warm, dry and pink. No soft tissue eruptions or trauma noted. HEENT: Atraumatic and normocephalic. PERRLA. Sclera white and conjunctiva pink. Oral cavity moist and pink. Pharynx is nonerythematous or edematous. Speech normal. No lymphadenopathy. Trachea midline. No jugular venous distention. BACK: No tenderness over the bony spine. No CVA tenderness. Patient's surgical site was observed and is slightly contused but I do not see any signs of infection including erythema, drainage, red streaking. THORAX: Lungs sounds are clear to auscultation with slight decreased air movement in the right base. Equal bilaterally with symmetrical chest wall. No wheezing, rales or rhonchi. No crepitus, tenderness, subcutaneous air or deformities noted. HEART: Regular rate and rhythm. No gallops, rubs or murmurs are appreciated. ABDOMEN: Obese and soft with diffuse mild tenderness throughout the mid section of the abdomen and on the left lower quadrant. Decreased bowel sounds in all quadrants. No guarding, rigidity or organomegaly. RECTAL: 2 small external hemorrhoids that 12 and 10:00 with no bleeding. Normal rectal tone. No rectal masses palpable. Heme-negative stool. EXTREMITIES: Moves all extremities well on command and with purpose. All distal neurovascular statuses are intact and equal bilaterally. ED Course: Patient is assessed as noted above. Laboratory Testing: Test 12/10/16 13:00 Range/Units White Blood Count 13.73 4.8-10.8 K/uL Red Blood Count 5.01 4.2-5.4 M/uL Hemoglobin 14.5 12.0-16.0 g/dL Hematocrit 41.7 37-47 % Mean Corpuscular Volume 83.2 80-100 fL Mean Corpuscular Hemoglobin 28.9 25-34 pg Mean Corpuscular Hemoglobin Concent 34.8 32-36 g/dl Platelet Count 200 130-400 K/uL Mean Platelet Volume 10.1 7.4-10.4 fL Neutrophils (%) (Auto) 92.8 % Lymphocytes (%) (Auto) 2.2 % Monocytes (%) (Auto) 4.4 % Eosinophils (%) (Auto) 0.1 % Basophils (%) (Auto) 0.1 % Neutrophils # (Auto) 12.74 1.4-6.5 K/uL Lymphocytes # (Auto) 0.30 1.2-3.4 K/uL Monocytes # (Auto) 0.61 0.11-0.59 K/uL Eosinophils # (Auto) 0.02 0-0.5 K/uL Basophils # (Auto) 0.01 0-0.2 K/uL RDW Standard Deviation 43.4 36.4-46.3 fL RDW Coefficient of Variation 14.3 11.5-14.5 % Immature Granulocyte % (Auto) 0.4 % Immature Granulocyte # (Auto) 0.05 0.00-0.02 K/uL Prothrombin Time 10.3 9.0-12.0 SECONDS Prothromb Time International Ratio 1.0 0.9-1.1 Activated Partial Thromboplast Time 25.4 21.0-31.0 SECONDS Partial Thromboplastin Ratio 1.0 Sodium Level 139 136-145 mmol/L Potassium Level 3.7 3.5-5.1 mmol/L Chloride Level 104 98-107 mmol/L Carbon Dioxide Level 21 21-32 mmol/L Anion Gap 14.0 3-11 mmol/L Blood Urea Nitrogen 16 7-18 mg/dl Creatinine 0.84 0.60-1.20 mg/dl Est Creatinine Clear Calc Drug Dose 88.3 ml/min Estimated GFR () 92.0 Estimated GFR (Non- 79.3 BUN/Creatinine Ratio 19.2 10-20 Random Glucose 141 70-99 mg/dl Calcium Level 10.1 8.5-10.1 mg/dl Total Bilirubin 0.7 0.2-1 mg/dl Direct Bilirubin 0.2 0-0.2 mg/dl Aspartate Amino Transf (AST/SGOT) 19 15-37 U/L Alanine Aminotransferase (ALT/SGPT) 29 12-78 U/L Alkaline Phosphatase 72 45-117 U/L Total Protein 8.5 6.4-8.2 gm/dl Albumin 4.1 3.4-5.0 gm/dl Lipase 72 73-393 U/L Patient was unable to provide stools for studies. Acute Abdominal Series: Was read by myself and the radiologist and shows no acute infiltrates, effusions or pneumothorax. Normal heart silhouette. Mild elevation of the right hemidiaphragm. No free air under the diaphragm. Radiologist does note there is mildly dilated loops of small bowel in the left upper quadrant possibly indicating a ileus or low-grade small bowel obstruction. Oral Contrast Abdominal/Pelvic CT: Was reviewed by myself and read by the radiologist and shows a small hiatal hernia, enlarged liver consistent with hepatic steatosis, enlarged spleen measuring 16 cm, mild colonic diverticulosis without evidence of acute diverticulitis, mild bowel wall thickening and edema in the left colon with faint pericolonic infiltration consistent with a mild nonspecific colitis, no bowel obstructions, normal appearing appendix. Patient was hydrated with normal saline she received 6 mg of morphine IV for pain and 25 mg of Phenergan IV. Patient was reassessed multiple times during her stay in the emergency department. Patient did have some mild hypotension and tachycardia although she denies any orthostatic symptoms. She was given 4.5 g of Zosyn IV for antibiotic coverage. Patient's case was reviewed with Dr. Chapa; we agreed on diagnostic approach, treatment, disposition and plan. Patient's case was consulted with case management and Dr. Luu, [facility] hospitalist for medical observation/admission. Patient was educated about today's findings. Clinical Impression: Acute abdominal pain. Hypotension. Decision-Making: Initially my differential diagnosis I considered diverticulitis , perforated viscus, bowel obstruction, postsurgical infection and other causes. Disposition and Plan: Patient will be brought in the hospital for observation/ admission by the hospitalist; please see their notes and orders for final disposition and plan.
[2016-12-10 22:19] LABS: MANUAL MICROSCOPIC REQUIRED? NO; REVIEW REQ? NO
[2016-12-11 00:08] VITALS: BP 114/72; PULSE 89; TEMP 37.5; O2SAT 96
[2016-12-11] MEDS: METRONIDAZOLE / NSS 500 MG in PREMIXED NSS 100 ML IV SCH ×3 (03:25→19:59)
[2016-12-11] MEDS: ACETAMINOPHEN 325 MG TAB PO PRN ×3 (03:25→19:59)
[2016-12-11 03:32] VITALS: BP 96/59; PULSE 90; TEMP 36.9; O2SAT 96
[2016-12-11 07:04] LABS: COMPLETE YES; EOS % 1.1 %; HEMATOCRIT 34.6 % (37-47); IG% 0.1 %; LYMPH % 12.4 %; LYMPH ABS # 1.09 K/uL (1.2-3.4); MEAN CELL VOLUME 84.6 fL (80-100); MEAN CORPUSCULAR HEMOGLOBIN 28.6 pg (25-34); MEAN CORPUSCULAR HGB CONC 33.8 g/dl (32-36); MEAN PLATELET VOLUME 9.8 fL (7.4-10.4); MONO % 6.5 %; NEUT % 79.9 %; PLATELET COUNT 183 K/uL (130-400); RED BLOOD COUNT 4.09 M/uL (4.2-5.4); WHITE BLOOD COUNT 8.81 K/uL (4.8-10.8)
[2016-12-11 07:40] LABS: BUN/CREATININE RATIO 17.5 (10-20); CALCIUM 8.6 mg/dl (8.5-10.1); CREATININE 0.7 mg/dl (0.60-1.20); POTASSIUM 3.8 mmol/L (3.5-5.1)
[2016-12-11 07:46] VITALS: BP 109/73; PULSE 81; TEMP 36.8; O2SAT 95
[2016-12-11] MEDS: CIPROFLOXACIN / D5W 400 MG in PREMIXED IN D5W 200 ML IV SCH ×2 (08:01→21:24)
[2016-12-11] MEDS: MULTIVITAMIN TAB PO SCH (08:59)
[2016-12-11] MEDS: LACTOBACILLUS ACIDOPHILUS (FLORANEX) TAB PO SCH ×3 (09:00→19:21)
[2016-12-11 10:09] LABS: ESTIMATED AVERAGE GLUCOSE 105 mg/dl; HA1C FLAG Normal (Normal)
--- NOTE | 2016-12-11 10:28 | CONSULTATION REPORT ---
DATE OF CONSULTATION: 12/11/2016 ATTENDING PHYSICIAN: Omer Vyas DO. REASON FOR CONSULT: Diverticulitis. HISTORY OF PRESENT ILLNESS: The patient is a 51-year-old female admitted last evening by the hospitalist service for abdominal pain, nausea and constipation. This began 2 days after recent microdiscectomy in [place] on Wednesday. She has had minimal back pain and has not been taking any narcotic analgesics. She has not had a bowel movement in 2 days and gave herself a Fleets enema. She had increased pain and bloating after that. At that point, she came to the Emergency Department. She has had several attacks of diverticulitis in the past. This morning her pain and bloating are improved. She did move her bowels after the enema. She is tolerating clear liquids. In regards to her diverticulitis, she has had documented episodes beginning in August of 2015 when she was admitted for 3 days. She had a second attack documented by CT in October 2016, which was treated with outpatient antibiotics. She had another episode or two in the last few months and was treated with outpatient antibiotics given by her PCP. She was considering surgery referral but the patient wanted to have her back surgery prior to seeing general surgery. She did have colonoscopy in February of 2016 primarily for screening purposes. She did have diverticulosis and internal hemorrhoids. That was performed by Dr. Shrestha. PAST MEDICAL HISTORY: Anxiety, hypertension, diverticulitis, hyperlipidemia, peripheral neuropathy, Charcot joint, impaired glucose tolerance, depression and obesity. PAST SURGICAL HISTORY: Microdiscectomy on 12/08/2016, x3. SOCIAL HISTORY: Remote tobacco use. Denies alcohol use. 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 CURRENT MEDICATIONS: Home medications include Lopid, Prinivil, Glucophage, multivitamin, Zoloft, Klonopin, meclizine. INPATIENT MEDICATIONS: Include daily multivitamin, Floranex t.i.d., Lopid 600 mg daily, Zoloft 150 mg daily, Cipro 400 mg IV q. 12 hours, Flagyl 500 mg IV q. 8 hours, Tylenol 650 mg as needed, Maalox as needed, Zofran 4 mg as needed, meclizine 12.5 mg as needed and Klonopin 0.25 mg as needed. ALLERGIES: IV CONTRAST. REVIEW OF SYSTEMS: GENERAL: No fevers or chills. GASTROINTESTINAL: As per HPI. She is tolerating clear liquids this morning. No other recent changes in bowels or appetite. OBJECTIVE: GENERAL: She appears in no acute distress. VITAL SIGNS: Temperature 36.8, pulse 81, respirations 20, blood pressure 109/73, pulse ox 95% on room air. HEENT: Unremarkable. HEART: Regular. ABDOMEN: Soft, mild left lower quadrant tenderness and minimal tenderness across the upper abdomen. No guarding or rebound. SKIN: Warm and dry. LABORATORY DATA: White count is 8000 down from 13,000 and hemoglobin 11.7 down from 14.5. Hematocrit 34.6, platelets 183,000. Sodium 141, potassium 3.8, BUN 12, creatinine 0.7, glucose 100. IMAGING: Abdominal x-rays shows oral contrast in the stomach and small bowel with mildly dilated loops of small bowel. The CT shows mild colonic diverticulosis without evidence of acute diverticulitis. There is mild wall thickening and edema seen in the left colon. MICROBIOLOGY: Stool was negative for C. diff. IMPRESSION: 1. Postoperative ileus. 2. Colitis vs diverticulitis 3. h/o recurrent diverticulitis PLAN: Although there is CT findings of colitis, her recent symptoms seemed to be more related to ileus than diverticulitis. The colitis is nonspecific, and would continue her antibiotics for colitis/possible diverticulitis. We will see how she recovers over the next few days and weeks and plan to see her in the office in a few weeks to discuss surgical options for diverticulitis. GIGI
[2016-12-11] MEDS: SODIUM CHLORIDE 0.9% 1000ML 1,000 ML IV SCH ×2 (11:23→19:20)
[2016-12-11 12:15] VITALS: BP 120/76; PULSE 82; TEMP 37; O2SAT 96
--- NOTE | 2016-12-11 13:22 | Hospitalist Progress Note ---
Hospitalist Progress Note Date of Service Dec 11, 2016. Subjective Pt evaluation today including: conversation w/ patient, physical exam, chart review, lab review, review of inpatient medication list Voiding: no voiding problems Ms. Bullard is feeling better today. Her main complaint is mild abdominal tenderness and diarrhea. She denies nausea or vomiting Constitutional: No fever, No chills Respiratory: No shortness of breath Cardiovascular: No chest pain Abdomen: + see HPI Female : No dysuria All Other Systems: Reviewed and Negative Medications Medications Administered Medications (Trade) Dose Ordered Sig/Marielena Route Start Time Stop Time Status Last Admin Dose Admin Sodium Chloride 1,000 ml @ 999 mls/hr Q1H1M STAT IV 12/10/16 12:56 12/10/16 13:56 DC 12/10/16 13:23 999 MLS/HR Morphine Sulfate (MoRPHine SULFATE INJ) 6 mg Q1H PRN IV 12/10/16 13:00 12/10/16 19:17 DC 12/10/16 13:23 6 MG Promethazine HCl 25 mg/Sodium Chloride 51 ml @ 204 mls/hr NOW STAT IV 12/10/16 12:56 12/10/16 13:10 DC 12/10/16 13:23 204 MLS/HR Sodium Chloride 1,000 ml @ 999 mls/hr Q1H1M STAT IV 12/10/16 16:55 12/10/16 17:55 DC 12/10/16 17:02 999 MLS/HR Piperacillin Sod/ Tazobactam Sod (Zosyn Iv) 4.5 gm NOW STAT IV 12/10/16 16:55 12/10/16 16:56 DC 12/10/16 17:02 4.5 GM Acetaminophen (Tylenol Tab) 650 mg Q4H PRN PO 12/10/16 17:45 01/09/17 17:44 12/11/16 11:24 650 MG Clonazepam (Klonopin Tab) 0.25 mg HS PRN PO 12/10/16 17:45 01/09/17 17:44 12/11/16 00:11 0.25 MG Gemfibrozil (Lopid Tab) 600 mg HS PO 12/10/16 21:00 01/09/17 20:59 12/10/16 22:08 600 MG Multivitamins (Multivitamin Tab) 1 tab QAM PO 12/11/16 09:00 01/10/17 08:59 12/11/16 08:59 1 TAB Sertraline HCl (Zoloft Tab) 150 mg HS PO 12/10/16 21:00 01/09/17 20:59 12/10/16 22:08 150 MG Ciprofloxacin/ Dextrose 400 mg/ Prmx 200 ml @ 100 mls/hr Q12 IV 12/10/16 21:00 12/20/16 20:59 12/11/16 08:01 100 MLS/HR Metronidazole 500 mg/Prmx 100 ml @ 100 mls/hr Q8H IV 12/10/16 20:00 12/20/16 19:59 12/11/16 11:23 100 MLS/HR Sodium Chloride 1,000 ml @ 100 mls/hr Q10H IV 12/10/16 19:30 01/09/17 19:29 12/11/16 11:23 100 MLS/HR Lactobacillus Acidophilus (Floranex Tab) 4 tab TIDM PO 12/11/16 07:30 01/10/17 07:59 12/11/16 12:18 4 TAB Objective Vital Signs Date Time Temp Pulse Resp B/P (MAP) Pulse Ox O2 Delivery O2 Flow Rate FiO2 12/11/16 12:15 37.0 82 16 120/76 (91) 96 Room Air 12/11/16 12:00 Room Air 12/11/16 08:00 Room Air 12/11/16 07:46 36.8 81 20 109/73 (85) 95 Room Air 12/11/16 04:00 Room Air 12/11/16 03:32 36.9 90 18 96/59 (71) 96 Room Air 12/11/16 00:08 37.5 89 18 114/72 (86) 96 Room Air 12/11/16 00:00 Room Air 12/10/16 18:10 94 20 93/45 96 12/10/16 18:05 37.5 99 20 106/66 Room Air 12/10/16 17:25 101 12/10/16 17:05 99 17 93/59 92 Room Air 12/10/16 15:30 99 18 84/54 93 Room Air 12/10/16 15:12 100 18 91/51 93 Room Air 12/10/16 14:36 103 18 90/62 96 Room Air 12/10/16 13:56 97 Nasal Cannula 2.0 12/10/16 13:55 88 Room Air 12/10/16 13:31 110 12/10/16 13:30 106 18 137/86 93 12/10/16 13:30 93 Room Air Physical Exam Notes: General: no distress Eyes: normal inspection, PERLL Respiratory: chest non tender, clear to auscultation, normal breath sounds, no respiratory distress, no accessory muscle use Cardiac: regular rate and rhythm, no rub or gallop, no murmur, no edema, no jvd GI/: active bowel sounds, abdomen tender bilateral lower quadrants, soft, non distended Extremities: normal range of motion, normal strength, non tender Neuro/Psych: alert and oriented x 3, normal mood and affect Skin: normal color, dry Laboratory Results Last 24 Hours Test 12/10/16 21:28 12/11/16 06:48 12/11/16 06:49 Urine Color YELLOW Urine Appearance CLEAR Urine pH 5.5 Urine Specific [place] 1.016 Urine Protein NEG Urine Glucose (UA) NEG Urine Ketones TRACE Urine Occult Blood NEG Urine Nitrite NEG Urine Bilirubin NEG Urine Urobilinogen NEG Urine Leukocyte Esterase TRACE Urine WBC (Auto) 1-5 /hpf Urine RBC (Auto) 0-4 /hpf Urine Hyaline Casts (Auto) 1-5 /lpf Urine Epithelial Cells (Auto) >30 /lpf Urine Bacteria (Auto) NEG Sodium Level 141 mmol/L Potassium Level 3.8 mmol/L Chloride Level 111 mmol/L Carbon Dioxide Level 23 mmol/L Anion Gap 7.0 mmol/L Blood Urea Nitrogen 12 mg/dl Creatinine 0.70 mg/dl Est Creatinine Clear Calc Drug Dose 106.4 ml/min Estimated GFR () 114.6 Estimated GFR (Non- 98.9 BUN/Creatinine Ratio 17.5 Random Glucose 100 mg/dl Calcium Level 8.6 mg/dl Total Bilirubin 0.7 mg/dl Direct Bilirubin 0.1 mg/dl Aspartate Amino Transf (AST/SGOT) 14 U/L Alanine Aminotransferase (ALT/SGPT) 24 U/L Alkaline Phosphatase 53 U/L Total Protein 6.8 gm/dl Albumin 3.0 gm/dl White Blood Count 8.81 K/uL Red Blood Count 4.09 M/uL Hemoglobin 11.7 g/dL Hematocrit 34.6 % Mean Corpuscular Volume 84.6 fL Mean Corpuscular Hemoglobin 28.6 pg Mean Corpuscular Hemoglobin Concent 33.8 g/dl Platelet Count 183 K/uL Mean Platelet Volume 9.8 fL Neutrophils (%) (Auto) 79.9 % Lymphocytes (%) (Auto) 12.4 % Monocytes (%) (Auto) 6.5 % Eosinophils (%) (Auto) 1.1 % Basophils (%) (Auto) 0.0 % Neutrophils # (Auto) 7.04 K/uL Lymphocytes # (Auto) 1.09 K/uL Monocytes # (Auto) 0.57 K/uL Eosinophils # (Auto) 0.10 K/uL Basophils # (Auto) 0.00 K/uL RDW Standard Deviation 45.0 fL RDW Coefficient of Variation 14.5 % Immature Granulocyte % (Auto) 0.1 % Immature Granulocyte # (Auto) 0.01 K/uL Estimated Average Glucose 105 mg/dl Hemoglobin A1c 5.3 % Assessment and Plan 51 yo F with PMhx of HTN, HLD, prediabetes, benign monoclonal hypergammaglobulinemia, lower back pain, peripheral neuropathy, 4 diverticulitis attacks in past 6 months, Vit d deficiency, anxiety, depression, obesity who presents with abdominal pain, nausea, and constipation x 2 days. Abdominal Pain Colitis - Cipro/flagyl - CT reviewed showing colitis, no sbo, no acute diverticulitis - Pt likely slightly hypotensive secondary to dehydration/poor oral intake/and administering a fleets enema this morning. - s/p 2 L NSS. Will maintain IVFs overnight at 100ml/hr and allow clear liquid diet - does not appear to be infectious at this time. - WBC only slightly elevated - Afebrile - Follow am labs - C.Diff negative Lower back pain s/p microdiscectomy - incision site appears well healed without surrounding erythema - does not appears to be a source for sepsis - Completed on 12/[address] Mota in [place] Anxiety Depression Fibromyalgia - Continue zoloft 150 mg HS, clonazepam 0.25 mg HS for sleep pre-diabetes - diet controlled - clear liquid diet for now - had a1c checked 08/23 = 5.6, recheck with am labs Benign monoclonal hypergammaglobulinemia- noted Transfer to medical floor DVT ppx: Teds, scds, ambulatory CODE STATUS: FULL CODE
[2016-12-11 15:20] VITALS: BP 106/68; PULSE 75; TEMP 36.6; O2SAT 96
[2016-12-11] MEDS: GEMFIBROZIL 600 MG TAB PO SCH (21:24)
[2016-12-11] MEDS: SERTRALINE HCL 100 MG TAB PO SCH (21:24)
[2016-12-11 23:15] VITALS: BP 135/84; PULSE 68; TEMP 36.7; O2SAT 98
[2016-12-12] MEDS: SODIUM CHLORIDE 0.9% 1000ML 1,000 ML IV SCH (02:36)
--- NOTE | 2016-12-12 03:51 | GASTROINTESTINAL CONSULTATION ---
DATE OF CONSULTATION: 12/11/2016 REQUESTING PROVIDER: Paul Frazier DO CHIEF COMPLAINT: Diverticulitis and colitis. HISTORY OF PRESENT ILLNESS: Mrs. Bullard is a 51-year-old white female who underwent disc surgery earlier this week on Wednesday. This was same day surgery. The patient did well for 1-2 days. However, following this, the patient began to experience some diffuse abdominal pain that is mostly upper that was due to coughing. This continued and the pain persisted with initially difficulty in having bowel movements, but after some laxative products, she was able to have a bowel movement. This was nonbloody. However, her symptoms persisted and she presented to the hospital for ongoing symptoms. The patient also experienced epigastric and right upper quadrant pain with cramping. The patient does have a prior history of diverticulitis and reports 3-4 events over the last year or so, although is not sure if this is presenting in a way similar to her prior attacks of diverticulitis. There was a sense of abdominal bloating and distention. On admission, her white count was mildly elevated at 13,000. PAST MEDICAL HISTORY: Significant for anxiety, prediabetes, MGUS, diverticulitis, vitamin D deficiency, obesity. PAST SURGICAL HISTORY: Surgically, she had a microdiscectomy. She reports her gallbladder is intact. SOCIAL HISTORY: Socially, the patient denies tobacco usage currently, though did smoke in the past. She does not use alcoholic beverages. She is and lives with a child. ALLERGIES: INCLUDE DYE. HOME MEDICATIONS: Include gemfibrozil for hypertriglyceridemia, lisinopril, metformin, multivitamins, Zoloft. FAMILY HISTORY: Otherwise noncontributory. REVIEW OF SYSTEMS: Otherwise noncontributory based on 13-point exam except for mentioned above. PHYSICAL EXAMINATION: GENERAL: The patient at the present time is awake, alert and oriented x3, resting comfortably in bed. She is awake, alert and oriented x3. HEENT: The sclerae are anicteric, conjunctivae moist. Oral mucosa moist. LUNGS: Clear to auscultation. HEART: Normal S1, S2. ABDOMEN: Soft, tender diffusely, but perhaps slightly more on the left side of the abdomen than on the right or in the epigastric region. There is no rebound or guarding. I do not appreciate hepatosplenomegaly. There is no evidence of ascites or shifting dullness. EXTREMITIES: Without clubbing, cyanosis or edema. Show normal range of motion. NEUROLOGIC: Nonfocal. SKIN: There are no rashes. IMAGING DATA: The patient's CT scan revealed and was compared to the October 2016 study and revealed a mild colonic diverticulosis without diverticulitis. In the left colon, there was some mild wall thickening and edema. This may reflect a nonspecific colitis. There is also hepatosplenomegaly with hepatosteatosis. LABORATORY STUDIES: On admission show a white count of 13.7, this is down today to 8.8, hemoglobin 14.5 down to 11.7, platelets 183,000. SERUM CHEMISTRIES: BUN and creatinine 12 and 0.7. LFTs normal. Bilirubin 0.7, direct 0.1, AST 14, ALT 24, alkaline phosphatase 53, albumin is diminished at 3.0. Lipase was normal. IMPRESSION AND PLAN: The patient has a history of 4 recurrent attacks of diverticulitis, although this behaved differently than those in the past. Additionally, there is no evidence of diverticulitis on CT imaging. The source of the patient's colitis is unclear. She did report a colonoscopy in [place] [address] Shrestha and a previous one. She is unaware of any samples that were taken uring february 2016 colonoscopy. The patient is not known to have a history of ulcerative colitis or Crohn's disease. Differential diagnosis includes ischemic colitis and possibly infectious colitis. I made the following recommendations: The patient had stool studies and C. diff was negative. I believe at the present time she is on Cipro and Flagyl and I believe it is reasonable to continue this conservative course of therapy including IV fluids and if tolerated, can slowly advance diet. If there is any evidence of fever, elevation of white blood cell count or worsening abdominal exam, then we would maintain n.p.o. status. The nature of the colitis is unclear and the patient was not on any extended antibiotics recently. Ischemic colitis is a possibility given her recent surgery. If the symptoms persist, then colonoscopy may be necessary, albeit I would like to defer this for at least several weeks if possible. We will continue to follow with you. All questions answered. GIGI
[2016-12-12] MEDS: METRONIDAZOLE / NSS 500 MG in PREMIXED NSS 100 ML IV SCH (04:04)
[2016-12-12 07:37] VITALS: BP 142/87; PULSE 75; TEMP 36.6; O2SAT 96
[2016-12-12] MEDS: LACTOBACILLUS ACIDOPHILUS (FLORANEX) TAB PO SCH (08:11)
[2016-12-12] MEDS: MULTIVITAMIN TAB PO SCH (08:11)
[2016-12-12] MEDS: CIPROFLOXACIN / D5W 400 MG in PREMIXED IN D5W 200 ML IV SCH (08:11)
--- NOTE | 2016-12-12 08:39 | Surgery Progress Note ---
Surgery Progress Note Date of Service Dec 12, 2016. Subjective some abdominal cramping and loose bm but overall feeling ok/better. jozef diet. Objective Vital Signs: Date Time Temp Pulse Resp B/P (MAP) Pulse Ox O2 Delivery O2 Flow Rate FiO2 12/12/16 07:37 36.6 75 16 142/87 (105) 96 Room Air 12/11/16 23:15 36.7 68 16 135/84 (101) 98 Room Air 12/11/16 23:14 Room Air 12/11/16 20:00 Room Air 12/11/16 15:20 36.6 75 18 106/68 (81) 96 Room Air 12/11/16 13:05 Room Air 12/11/16 12:15 37.0 82 16 120/76 (91) 96 Room Air 12/11/16 12:00 Room Air General Appearance: no apparent distress Head: normocephalic, atraumatic Neck: supple, trachea midline Respiratory/Chest: no respiratory distress, no accessory muscle use Abdomen: non distended, soft, + pertinent finding (very mild LLQ ttp. no guarding. ) Laboratory Results: Results Past 24 Hours Test 12/12/16 08:15 Range/Units Assessment & Plan diverticulitis/colitis improved clinically. jozef diet am labs pending can likely d/c home today on oral antibiotics f/u with me in 2-3 weeks rec low residue diet for next 4 weeks.
[2016-12-12 09:12] LABS: BASO % 0.2 %; BASO ABS # 0.01 K/uL (0-0.2); COMPLETE YES; HEMATOCRIT 34.1 % (37-47); IG% 0.2 %; LYMPH % 20.9 %; LYMPH ABS # 1.12 K/uL (1.2-3.4); MEAN CELL VOLUME 84.8 fL (80-100); MEAN CORPUSCULAR HEMOGLOBIN 27.9 pg (25-34); MEAN CORPUSCULAR HGB CONC 32.8 g/dl (32-36); MEAN PLATELET VOLUME 10.1 fL (7.4-10.4); MONO % 8.2 %; NEUT % 67.5 %; PLATELET COUNT 182 K/uL (130-400); RED BLOOD COUNT 4.02 M/uL (4.2-5.4); WHITE BLOOD COUNT 5.37 K/uL (4.8-10.8)
[2016-12-12 09:36] LABS: BUN/CREATININE RATIO 13.9 (10-20); CALCIUM 8.6 mg/dl (8.5-10.1); CREATININE 0.54 mg/dl (0.60-1.20); POTASSIUM 3.8 mmol/L (3.5-5.1)
--- NOTE | 2016-12-12 10:45 | Gastroenterology Progress Note ---
Progress Note Date of Service: Dec 12, 2016 Subjective Pt evaluation today including: conversation w/ patient (Wants to get out. Few loose BM yesterday and this morning, thought it was from contrast), physical exam, chart review, lab review, review of studies, conversation w/ [facility] consultant Review of Systems Constitutional: No fever Abdomen: + diarrhea, No pain, No nausea Psych: + insomnia Medications Current Inpatient Medications Medications (Trade) Dose Ordered Sig/Marielena Route Start Time Stop Time Status Last Admin Dose Admin Acetaminophen (Tylenol Tab) 650 mg Q4H PRN PO 12/10/16 17:45 01/09/17 17:44 12/11/16 19:59 650 MG Al Hydrox/Mg Hydrox/Simethicone (Maalox Max Susp) 15 ml Q4H PRN PO 12/10/16 17:45 01/09/17 17:44 12/11/16 18:07 15 ML Ondansetron HCl (Zofran Inj) 4 mg Q6H PRN IV 12/10/16 17:45 01/09/17 17:44 Polyethylene (Miralax Powder Packet) 17 gm DAILY PRN PO 12/10/16 17:45 01/09/17 17:44 Clonazepam (Klonopin Tab) 0.25 mg HS PRN PO 12/10/16 17:45 01/09/17 17:44 12/11/16 00:11 0.25 MG Gemfibrozil (Lopid Tab) 600 mg HS PO 12/10/16 21:00 01/09/17 20:59 12/11/16 21:24 600 MG Multivitamins (Multivitamin Tab) 1 tab QAM PO 12/11/16 09:00 01/10/17 08:59 12/12/16 08:11 1 TAB Sertraline HCl (Zoloft Tab) 150 mg HS PO 12/10/16 21:00 01/09/17 20:59 12/11/16 21:24 150 MG Meclizine HCl (Antivert Tab) 12.5 mg TID PRN PO 12/10/16 17:45 01/09/17 17:44 Ciprofloxacin/ Dextrose 400 mg/ Prmx 200 ml @ 100 mls/hr Q12 IV 12/10/16 21:00 12/20/16 20:59 12/12/16 08:11 100 MLS/HR Metronidazole 500 mg/Prmx 100 ml @ 100 mls/hr Q8H IV 12/10/16 20:00 12/20/16 19:59 12/12/16 04:04 100 MLS/HR Sodium Chloride 1,000 ml @ 100 mls/hr Q10H IV 12/10/16 19:30 01/09/17 19:29 12/12/16 02:36 100 MLS/HR Lactobacillus Acidophilus (Floranex Tab) 4 tab TIDM PO 12/11/16 07:30 01/10/17 07:59 12/12/16 08:11 4 TAB Miscellaneous (Iv Fluids Completed) 1 ea PRN PRN N/A 12/10/16 19:30 12/10/17 19:29 Objective Vital Signs Date Time Temp Pulse Resp B/P (MAP) Pulse Ox O2 Delivery O2 Flow Rate FiO2 12/12/16 07:37 36.6 75 16 142/87 (105) 96 Room Air 12/12/16 07:30 Room Air 12/11/16 23:15 36.7 68 16 135/84 (101) 98 Room Air 12/11/16 23:14 Room Air 12/11/16 20:00 Room Air 12/11/16 15:20 36.6 75 18 106/68 (81) 96 Room Air 12/11/16 13:05 Room Air 12/11/16 12:15 37.0 82 16 120/76 (91) 96 Room Air 12/11/16 12:00 Room Air Physical Exam General Appearance: no apparent distress Abdomen: normal bowel sounds, non tender, soft Extremities: no pedal edema Neurologic/Psych: normal mood/affect Skin: normal color Laboratory Results Last 24 Hours Test 12/12/16 08:15 White Blood Count 5.37 K/uL Red Blood Count 4.02 M/uL Hemoglobin 11.2 g/dL Hematocrit 34.1 % Mean Corpuscular Volume 84.8 fL Mean Corpuscular Hemoglobin 27.9 pg Mean Corpuscular Hemoglobin Concent 32.8 g/dl Platelet Count 182 K/uL Mean Platelet Volume 10.1 fL Neutrophils (%) (Auto) 67.5 % Lymphocytes (%) (Auto) 20.9 % Monocytes (%) (Auto) 8.2 % Eosinophils (%) (Auto) 3.0 % Basophils (%) (Auto) 0.2 % Neutrophils # (Auto) 3.63 K/uL Lymphocytes # (Auto) 1.12 K/uL Monocytes # (Auto) 0.44 K/uL Eosinophils # (Auto) 0.16 K/uL Basophils # (Auto) 0.01 K/uL RDW Standard Deviation 44.5 fL RDW Coefficient of Variation 14.3 % Immature Granulocyte % (Auto) 0.2 % Immature Granulocyte # (Auto) 0.01 K/uL Sodium Level 142 mmol/L Potassium Level 3.8 mmol/L Chloride Level 112 mmol/L Carbon Dioxide Level 25 mmol/L Anion Gap 6.0 mmol/L Blood Urea Nitrogen 8 mg/dl Creatinine 0.54 mg/dl Est Creatinine Clear Calc Drug Dose 137.9 ml/min Estimated GFR () 124.9 Estimated GFR (Non- 107.7 BUN/Creatinine Ratio 13.9 Random Glucose 98 mg/dl Calcium Level 8.6 mg/dl Assessment and Plan Ok to discharge, symptoms all better. No abdominal pain that she came with. If diarrhea persists, check for C diff. Likely medication induced effect.
[2016-12-12] MEDS ORDERED: METR-163 PO (10:50)
[2016-12-12] MEDS ORDERED: CIPR-255 PO (10:50)
--- NOTE | 2016-12-12 10:54 | Discharge Instructions ---
Discharge Instructions Date of Service Dec 12, 2016. Admission Reason for Admission: Colitis Discharge Discharge Diagnosis / Problem: Colitis Discharge Goals Goal(s): Decrease discomfort, Improve function Activity Recommendations Activity Limitations: per Instructions/Follow-up section Lifting Limitations: gradually increase as tolerated (follow spine surgery instructions for lifting) Exercise/Sports Limitations: as tolerated May Resume Sexual Activity: when tolerated Shower/Bathe: no limitations Driving or Machine Use: no limitations . Instructions / Follow-Up Instructions / Follow-Up Medications: - CIPRO and FLAGYL: complete 7 more days of each for full treatment of colitis Colitis: as we discussed, differential is infectious (viral), ischemic colitis or very low possibility of diverticulitis C diff was negative GI and surgery recommend discharge home on oral antibiotics follow a low residue diet for the next 4 weeks follow up with Dr. Vyas in 2-3 weeks stay well hydrated, can use Imodium for diarrhea relief FOLLOW UP - Dr. Caba in one week, call for appointment - Dr. Vyas in 2-3 weeks Current Hospital Diet Patient's current hospital diet: Low Fiber Diet, Low Fat Diet Discharge Diet Recommended Diet: Low Fiber Diet, Low Fat Diet Pending Studies Studies pending at discharge: no Laboratory Results Hemoglobin A1c Test 12/11/16 06:49 Range/Units Estimated Average Glucose 105 mg/dl Hemoglobin A1c 5.3 4.5-5.6 % Medical Emergencies . Who to Call and When: Medical Emergencies: If at any time you feel your situation is an emergency, please call 911 immediately. . Non-Emergent Contact Non-Emergency issues call your: Primary Care Provider, Surgeon Call Non-Emergent contact if: you have a fever, your pain is not controlled, you have any medication questions diarrhea does not resolve in next several days, if diarrhea becomes bloody ( which can be normal with ischemic colitis) . . "Provider Documentation" section prepared by Paul Frazier. . VTE Core Measure Inpt VTE Proph given/why not?: Viv Tee, [facility] [place] Drug Monitoring Program Search Results: no issues identified
--- NOTE | 2016-12-12 11:06 | Discharge Summary ---
Discharge Summary Date of Service Dec 12, 2016. Discharge Summary Admission Date: Dec 10, 2016 at 17:48 Discharge Date: Dec 12, 2016 Discharge Disposition: Home Principal Diagnosis: Colitis Problems/Secondary Diagnoses: (1) Anxiety Disorder, Unspecified Status: Chronic (2) CHARCOT'S JOINT, UNSPECIFIED SITE Status: Chronic (3) Hyperlipidemia Nec/Nos Status: Chronic (4) Hypertension Nos Status: Chronic (5) Peripheral neuropathy Status: Chronic Immunizations: Have You Had Influenza Vaccine: N/A History of Tetanus Vaccine?: Unknown History of Pneumococcal: No History of Hepatitis B Vaccine: Unknown Procedures: none Consultations: General surgery Gastroenterology Medication Reconciliation New Medications: Ciprofloxacin Hcl (Cipro) 500 Mg Tab 500 MG PO BID for 7 Days, #14 TAB 0 Refills Metronidazole (Flagyl) 500 Mg Tab 500 MG PO TID for 7 Days, #21 TAB Continued Medications: Clonazepam (Klonopin) 0.5 Mg Tab 0.5-1 TAB PO HS PRN for Sleep Gemfibrozil (Lopid) 600 Mg Tab 600 MG PO HS Lisinopril (Prinivil) 10 Mg Tab 10 MG PO HS Meclizine HCl (Meclizine HCl) 12.5 Mg Tab 12.5 MG PO TID PRN for Dizziness or Vertigo Metformin Hcl (Glucophage) 500 Mg Tab 500 MG PO QAM, TAB Multiple Vitamin (Multivitamin) 1 Tab Tab 1 TAB PO QAM Sertraline (Zoloft) 100 Mg Tab 150 MG PO HS, TAB Discharge Exam Patient feeling better today, less frequent BM, tolerating diet, no pain. No fever/chills. Review of Systems: Constitutional: + weakness, + fatigue, No fever, No chills, No sweats, No weight loss, No problem reported Eyes: No worsening of vision, No eye pain, No redness, No discharge, No diplopia, No problem reported ENT: No hearing loss, No unusual epistaxis, No nasal symptoms, No sore throat, No tinnitus, No dental problems, No trouble swallowing, No problem reported Respiratory: No cough, No sputum, No wheezing, No shortness of breath, No dyspnea on exertion, No dyspnea at rest, No hemoptysis, No problem reported Cardiovascular: No chest pain, No orthopnea, No PND, No edema, No claudication, No palpitations, No problem reported Abdomen: + nausea, + diarrhea, No pain, No vomiting, No constipation, No GI bleeding, No problem reported Musculoskeletal: No joint pain, No muscle pain, No swelling, No calf pain, No problem reported Genitourinary - Female: No dysuria, No urinary frequency, No urinary urgency , No urinary incontinence Neurologic: No memory loss, No paralysis, No weakness, No numbness/tingling , No vertigo, No balance problems, No problem reported Psychiatric: No depression symptoms, No anhedonism, No anxiety, No insomnia , No substance abuse, No problem reported Endocrine: No fatigue, No excessive thirst, No excessive urination, No problem reported Hematologic / Lymphatic: No abnormal bleeding/bruising, No clotting problems , No swollen lymph nodes, No night sweats, No problem reported Integumentary: No rash, No itch, No new/changing skin lesions, No color change, No bleeding, No problem reported Physical Exam: General Appearance: WD/WN, no apparent distress Eyes: normal inspection, EOMI, sclerae normal ENT: normal ENT inspection, hearing grossly normal, pharynx normal Neck: supple, no adenopathy, no JVD, trachea midline Respiratory/Chest: chest non-tender, lungs clear, normal breath sounds, no respiratory distress, no accessory muscle use Cardiovascular: regular rate, rhythm, no edema, no gallop, no JVD, no murmur , normal peripheral pulses Abdomen / GI: normal bowel sounds, non tender, soft, no organomegaly Extremities: normal inspection, no calf tenderness, normal capillary refill , no pedal edema, normal range of motion, pelvis stable Neurologic/Psychiatric: general internist II-XII nml as tested, no motor/sensory deficits , alert, normal mood/affect, normal reflexes, oriented x 3 Skin: normal color, warm/dry, no rash Hospital Course 51 yo F with PMhx of HTN, HLD, prediabetes, benign monoclonal hypergammaglobulinemia, lower back pain, peripheral neuropathy, 4 diverticulitis attacks in past 6 months, Vit d deficiency, anxiety, depression, obesity who presents with abdominal pain, nausea, and constipation x 2 days. Colitis: either infectious, ischemic or less likely diverticulitis - treated with Cipro and Flagyl IV while inpatient, convert to PO, complete 7 more days - CT reviewed showing colitis, no sbo, no acute diverticulitis - C.Diff negative - low residue diet for 4 weeks per surgery, follow up with Dr. Vyas in 2-3 weeks in office Lower back pain s/p microdiscectomy - incision site appears well healed without surrounding erythema - does not appears to be a source for sepsis - Completed on 12/[address] Mota in [place] Anxiety Depression Fibromyalgia - Continue zoloft 150 mg HS, clonazepam 0.25 mg HS for sleep pre-diabetes - diet controlled Benign monoclonal hypergammaglobulinemia- noted d/c to home Total Time Spent: Less than 30 minutes This includes examination of the patient, discharge planning, medication reconciliation, and communication with other providers. Discharge Instructions Please refer to the electronic Patient Visit Report (Discharge Instructions) for additional information. Follow-Up Dr. Caba in one week Dr. Vyas in 2-3 weeks Additional Copies To Omer Vyas D.O.; Tyrone Caba M.D.
[2016-12-12 11:16] VITALS: BP 142/87; PULSE 75; TEMP 36.6; O2SAT 96
== END 2016-12-12 11:50 | disposition home or self-care (01) ==
LOC: C.EDB 12:28 → C.2T 17:48 → ENRESERV 18:00 → C.2T 18:53 → ENRESERV 12-11 12:14 → C.MSN 12-11 13:04
PROVIDERS: ADMIT Internal Medicine; ATTEND Internal Medicine
DX: K52.9 Noninfective gastroenteritis and colitis, unspecified (principal); I10 Essential (primary) hypertension; E78.5 Hyperlipidemia, unspecified; R73.03 Prediabetes; E55.9 Vitamin D deficiency, unspecified; D89.2 Hypergammaglobulinemia, unspecified; M79.7 Fibromyalgia; M54.5 Low back pain; G62.9 Polyneuropathy, unspecified; A52.16 Charcot's arthropathy (tabetic); E66.9 Obesity, unspecified; F41.9 Anxiety disorder, unspecified; F43.29 Adjustment disorder with other symptoms; Z79.84 Long term (current) use of oral hypoglycemic drugs; Z79.899 Other long term (current) drug therapy; Z87.891 Personal history of nicotine dependence

== ENCOUNTER → 2017-01-28 | Outpatient (CLI) | payer OTHER ==
[~2017-01-28] MED LIST changes: +CIPR-255 PO; -CIPR1TAB11 PO; -DICL50TA3 PO
--- NOTE | 2017-01-28 07:53 | MAMMOGRAPHY REPORT ---
BILATERAL DIGITAL SCREENING MAMMOGRAM TOMOSYNTHESIS WITH CAD: 01/28/2017 CLINICAL HISTORY: Routine screening. Patient has no complaints. TECHNIQUE: Breast tomosynthesis in addition to standard 2D mammography was performed. Current study was also evaluated with a Computer Aided Detection (CAD) system. COMPARISON: Comparison is made to exams dated: 01/27/2016 mammogram, 01/16/2015 mammogram, 01/08/2014 mammogram, 11/28/2012 mammogram, 11/25/2011 mammogram - [facility], and 09/30/2007. BREAST COMPOSITION: There are scattered areas of fibroglandular density in both breasts. FINDINGS: No suspicious masses, calcifications, or areas of architectural distortion are noted in ei ther breast. There has been no significant interval change compared to prior exams. IMPRESSION: ACR BI-RADS CATEGORY 1: NEGATIVE There is no mammographic evidence of malignancy. A 1 year screening mammogram is recommended. The pa tient will receive written notification of the results. Approximately 10% of breast cancers are not detected with mammography. A negative mammographic report should not delay biopsy if a clinically suggestive mass is present. Surekha Hadley M.D. ah/:01/28/2017 07:41:47 Clinical Safety Manager: Sarah GARCIA(Wendy)(M), [facility] letter sent: Normal 1/2 BI-RADS Code: ACR BI-RADS Category 1: Negative
== END | disposition home or self-care (01) ==
LOC: C.MAMM 07:03
PROVIDERS: ATTEND Obstetrics & Gynecology
DX: Z12.31 Encounter for screening mammogram for malignant neoplasm of breast (principal)

== ENCOUNTER → 2017-03-23 | Outpatient (CLI) | payer OTHER | END | disposition home or self-care (01) | LOC: C.LABSPEC 13:28 | PROVIDERS: ATTEND Physician Assistant | DX: R30.0 Dysuria (principal); N92.6 Irregular menstruation, unspecified ==

== ENCOUNTER → 2017-04-07 | Outpatient (CLI) | payer OTHER ==
[~2017-04-07] MED LIST changes: +CEPH500C PO
== END | disposition home or self-care (01) ==
LOC: C.PATHSPEC 10:33
PROVIDERS: ATTEND Obstetrics & Gynecology
DX: A63.0 Anogenital (venereal) warts (principal)

== ENCOUNTER → 2017-04-15 | Outpatient (CLI) | payer OTHER ==
[~2017-04-15] MED LIST changes: -CIPR-255 PO
--- NOTE | 2017-04-15 16:07 | DIAGNOSTIC IMAGING REPORT ---
LEFT FOOT 3 VIEWS HISTORY: NON HEALING WOUND, R/O FOREIGN BODY COMPARISON: None. FINDINGS: There is no fracture or dislocation. Calcification within the plantar fascia. Large plantar heel spur. Soft tissue swelling within the first toe. No bony erosions to suggest osteomyelitis. No radiopaque foreign bodies. IMPRESSION: 1. Soft tissue swelling within the left first toe. 2. No evidence for osteomyelitis. 3. No radiopaque foreign bodies. Electronically signed by: Sandeep Saldaña M.D. 04/15/2017 4:06 PM Dictated Date/Time: 04/15/2017 4:04 PM
== END | disposition home or self-care (01) ==
LOC: C.RADBC 15:12
PROVIDERS: ATTEND Physician Assistant
DX: S91.102A Unspecified open wound of left great toe without damage to nail, initial encounter (principal); X58.XXXA Exposure to other specified factors, initial encounter

== ENCOUNTER → 2017-06-28 | Outpatient (CLI) | payer OTHER ==
[2017-06-28 10:48] LABS: ALT/SGPT 49 U/L (12-78); AST/SGOT 30 U/L (15-37); BLOOD UREA NITROGEN 17 mg/dl (7-18); CALCIUM 9.2 mg/dl (8.5-10.1); CARBON DIOXIDE 28 mmol/L (21-32); CHOLESTEROL 248 mg/dl (0-200); CREATININE 0.69 mg/dl (0.60-1.20); GLUCOSE 94 mg/dl (70-99); POTASSIUM 4.1 mmol/L (3.5-5.1); SODIUM 138 mmol/L (136-145)
[2017-06-28 10:59] LABS: ALKALINE PHOSPHATASE 69 U/L (45-117); LDL CHOLESTEROL CALCULATED 135 mg/dl
[2017-06-28 11:11] LABS: HEMOGLOBIN A1C 5.7 % (4.5-5.6)
== END | disposition home or self-care (01) ==
LOC: C.LABBC 07:54
PROVIDERS: ATTEND Nurse Practitioner Adult Health
DX: Z00.00 Encounter for general adult medical examination without abnormal findings (principal); I10 Essential (primary) hypertension; R73.03 Prediabetes; D47.2 Monoclonal gammopathy; G62.9 Polyneuropathy, unspecified

== ENCOUNTER 2021-11-17 20:48 | Inpatient (IN) ==
[2021-11-17 22:03] LABS: Basophils # (auto) 0.02 K/uL (0-0.2); Basophils % (auto) 0.2 %; Eosinophils # (auto) 0.16 K/uL (0-0.50); Eosinophils % (auto) 1.7 %; Hematocrit (blood only) 38.8 % (34.1-44.9); Immature Granulocytes # (auto) 0.05 K/uL (0.00-0.02); Immature Granulocytes % (auto) 0.5 %; Lymphocytes # (auto) 1.66 K/uL (1.2-3.4); Lymphocytes % (auto) 17.7 %; Mean Corpuscular Hemoglobin 28.2 pg (25.0-34.0); Mean Corpuscular Hgb Conc 33.5 g/dL (32.0-36.0); Mean Corpuscular Volume 84.2 fL (80.0-100.0); Mean Platelet Volume 10.3 fL (9.4-12.3); Monocytes # (auto) 0.77 K/uL (0.24-0.82); Monocytes % (auto) 8.2 %; Neutrophils # (auto) 6.73 K/uL (1.4-6.5); Neutrophils % (auto) 71.7 %; Platelet Count 156 K/uL (130-400); RDW Coefficient of Variation 13.3 % (11.5-14.5); RDW Standard Deviation 40.6 fL (36.4-46.3); Red Blood Count 4.61 M/uL (3.93-5.22); White Blood Count 9.39 K/ul (4.8-10.8)
[2021-11-17 22:08] LABS: Appearance Urine Turbid (Clear); Bacteria Urine Automated Negative (Negative); Bilirubin Urine Negative (Negative); Blood Urine 1+ (Negative); Color Urine Yellow; Epithelial Cell Urine Auto >30 /lpf (0-5); Glucose Urine UA Negative (Negative); Ketones Urine Negative (Negative); Leukocyte Esterase Urine Trace (Negative); Nitrite Urine Negative (Negative); Protein Urine Trace (Negative); RBC Urine Automated 0-4 /hpf (0-4); Specific Gravity Urine 1.017 (1.000-1.030); Urobilinogen Urine Negative (Negative); pH Urine 5.5 (4.5-7.5)
[2021-11-17 22:42] LABS: Albumin Globulin Ratio 1.3 (0.9-2); Albumin Level 4.3 gm/dl (3.4-5.0); BUN Creatinine Ratio 14.9 (10-20); Bilirubin,Total 0.6 mg/dl (0.2-1.0); Calcium 9.9 mg/dl (8.5-10.1); Creatinine Clr Calc Pharmacy 108.4 ml/min; Est GFR (African American) 103.5 ml/min; Est GFR (Non-African American) 89.3 ml/min; Globulin 3.3 gm/dl (2.5-4.0); Total Protein 7.6 gm/dl (6.0-8.3)
[2021-11-17] MEDS ORDERED: ONDANSETRON INJ 2 MG/ML 2 ML VIAL IV STA (22:52)
--- NOTE | 2021-11-17 22:57 | Emergency Department Note ---
History of Present Illness General Chief complaint: Abdominal Pain Stated complaint: DIVERTICULITIS Time Seen by Provider: 11/17/21 22:44 History of Present Illness Maximum Pain Intensity: 10 This is a 56-year-old female presenting to the emergency department for evaluation of 10/10 left lower quadrant abdominal pain. The patient has a history of diverticulitis and her pain feels identical to previous episodes. She did contact her primary care physician today when symptoms began and prescription for Cipro and Flagyl was sent to her pharmacy. The patient does have an old prescription of Cipro and Flagyl at home and did start 2 doses today. She now presents to the ER because her pain is much worse. She has not had vomiting or diarrhea. She did take Tylenol without significant improvement of symptoms earlier today. Home Medications Medication Instructions Recorded Confirmed Type cholecalciferol (vitamin D3) 50 50 mcg PO DAILY #30 caps 05/13/20 11/05/21 Rx mcg (2,000 unit) capsule mecobalamin (vitamin B12) 1,000 1,000 mcg PO DAILY #30 tabs 05/13/20 11/05/21 Rx mcg chewable tablet rosuvastatin 5 mg tablet 5 mg PO DAILY #90 tabs 07/18/20 11/05/21 Rx Auto Titrating CPAP See Rx Instructions .Route 08/29/20 11/05/21 Rx .COMPLEX #1 ea metformin 1,000 mg tablet,extended 1,000 mg PO DAILY #90 tabs 04/04/21 11/05/21 Rx release 24hr Compounded Topical Cream: Mag Cl See Rx Instructions .Route .COMPLEX 06/25/21 11/05/21 History 10%/Lido 5%/Miguel A 6% albuterol sulfate 90 mcg/actuation 2 puff inhalation QID PRN 07/22/21 11/05/21 Rx aerosol inhaler shortness of breath or wheezing #8.5 grams budesonide 180 mcg/actuation 1 inh inhalation BID PRN 07/22/21 11/05/21 History breath activated powder inhaler (Pulmicort Flexhaler) clonazepam 0.5 mg tablet (Klonopin) 0.5 mg PO HS PRN Unknown 07/22/21 11/05/21 History doxepin 100 mg capsule 100 mg PO .COMPLEX #30 caps 09/02/21 11/05/21 Rx meloxicam 15 mg tablet 15 mg PO DAILY #30 tabs 09/08/21 11/05/21 Rx atenolol 25 mg tablet See Rx Instructions .Route 09/29/21 11/05/21 Rx .COMPLEX #90 tabs sertraline 25 mg tablet (Zoloft) 25 mg PO DAILY 10/21/21 11/05/21 History ciprofloxacin HCl 500 mg tablet 500 mg PO BID 10 days #20 tabs 11/17/21 Rx (Cipro) metronidazole 500 mg tablet 500 mg PO Q8H 10 days #30 tabs 11/17/21 Rx Allergies Allergy/AdvReac Type Severity Reaction Status Date / Time Iodinated Contrast Media Allergy U CT DYE Verified 11/05/21 14:40 CAUSES HIVES lisinopril Allergy Unknown Cough Verified 11/05/21 14:40 sulfamethoxazole Allergy Unknown Unknown Verified 11/05/21 14:40 [From Bactrim] trimethoprim [From Bactrim] Allergy Unknown Unknown Verified 11/05/21 14:40 Past Med/Surg History Medical History Arthritis Benign monoclonal hypergammaglobulinemia Coronary artery calcinosis Cyst of left ovary Dietary counseling and surveillance Diverticulitis (~04/2019) Dysesthesia Eczema 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 Mota November 2016 Status post hysteroscopic ablation of endometrium Family History Mother , age 76 of cancer Myocardial infarction Depression Gallbladder disease Lung cancer Sister Depression Father , age 79 of lung cancer Hypertension Lung cancer Grandfather (Paternal) Lung cancer Son Rhabdomyolysis Unknown Thyroid disorder Denies family history of Ovarian cancer Prostate cancer Breast cancer Colorectal cancer Social History Smoking Status: Former smoker Number of Years Since Quit: 7; Second Hand Exposure: No; Hx Alcohol Use: Yes Alcohol type: wine Hx Substance Use: No Preferred Language: Georgian Communication Ability: Effective Visual Impairment: No Limitations Hearing Ability: Normal 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 Family able to assist with care as needed Other Information That Helps Us Care for You: No Feels Safe at Home: Yes Safety Concerns: Feels Safe At This Time Childhood Exposure to Second-Hand Smoke: Yes Diet Comment: sees for weight loss diet during the past year weight has: decreased > 10 lbs Dental Care, Regularly: Yes Physical Activity Frequency: Does not Exercise Seatbelt Use: always Sunscreen Use: Yes Assistive Devices: CPAP and Glasses Review of Systems A total of 10 systems reviewed and were otherwise negative Physical Exam Vital Signs Vital Signs - 24 hr 11/18/21 01:00 11/18/21 01:30 11/18/21 02:00 Pulse Rate 100 H 93 H 94 H Respiratory Rate 18 14 22 Blood Pressure 141/93 H 150/87 H 151/87 H Blood Pressure Mean 109 108 108 Pulse Oximetry 95 94 90 11/18/21 02:30 11/18/21 03:00 Pulse Rate 91 H 95 H Respiratory Rate 16 14 Blood Pressure 138/88 149/98 H Blood Pressure Mean 104 115 Pulse Oximetry 94 92 VITALS: Vitals are noted on the nurse's note and reviewed by myself. Vital signs stable. GENERAL: Well-developed, well-nourished, white female, who is moderately uncomfortable appearing but pleasant and cooperative. HEAD: Normocephalic atraumatic. HEART: Regular rate and rhythm without murmurs gallops or rubs. LUNGS: Clear to auscultation bilaterally without wheezes, rales or rhonchi. No retractions or accessory muscle use. ABDOMEN: Positive normal bowel sounds x 4. Soft with left-sided tenderness. No rebound or guarding. No right-sided or flank tenderness. MUSCULOSKELETAL: No muscle atrophy, erythema, or edema noted. Full range of motion in all extremities. No tenderness to palpation. Normal gait. Strength 5/5 throughout. NEURO: Patient was alert and oriented to person place and time. CN II through XII grossly intact. No focal neurological deficits. Deep tendon reflexes 2+ throughout. SKIN: The skin was without rashes, erythema, edema, or bruising. Capillary refill less than 2 seconds. Course Administered Medications Atenolol (Atenolol 25 Mg Tablet) 25 mg PO QAM [facility] Stop: 12/18/21 08:59 Last Admin: 11/18/21 08:27 Dose: 25 mg Documented By: TONY Enoxaparin Sodium (Enoxaparin Inj 40 Mg/0.4 Ml Syr) 40 mg SQ Q12H [facility] Stop: 12/18/21 06:09 Last Admin: 11/18/21 21:58 Dose: 40 mg Documented By: Admin: 11/18/21 07:20 Dose: 40 mg Documented By: TONY Famotidine 20 mg/ Syringe 5 mls @ 2.5 mls/min IV Q12 [facility]UEL Stop: 12/18/21 08:59 Last Admin: 11/18/21 21:04 Dose: Not Given Documented By: Admin: 11/18/21 08:42 Dose: 2.5 mls/min Documented By: TONY Acetaminophen (Ofirmev) 1,000 mg in 100 mls @ 400 mls/hr IV Q8H PRN PRN Reason: Pain or Fever Stop: 11/21/21 06:09 Last Infusion: 11/18/21 16:00 Dose: 0 mls/hr Documented By: Admin: 11/18/21 15:29 Dose: 400 mls/hr Documented By: RACHID Potassium Chloride/Sodium Chloride (Normal Saline W/20 Meq Kcl) 20 meq in 1,000 mls @ 100 mls/hr IV .Q10H JUAN MANUEL; Protocol Stop: 12/18/21 06:09 Last Admin: 11/18/21 21:57 Dose: 100 mls/hr Documented By: Infusion: 11/18/21 18:52 Dose: 0 mls/hr Documented By: Admin: 11/18/21 07:20 Dose: 100 mls/hr Documented By: TONY Ciprofloxacin (Cipro / D5w) 400 mg in 200 mls @ 100 mls/hr IV Q12H JUAN MANUEL; Protocol Stop: 11/28/21 15:59 Last Infusion: 11/18/21 18:53 Dose: 0 mls/hr Documented By: Admin: 11/18/21 16:14 Dose: 100 mls/hr Documented By: RACHID Metronidazole (Flagyl) 500 mg in 100 mls @ 100 mls/hr IV Q8H JUAN MANUEL Stop: 11/28/21 15:44 Last Infusion: 11/18/21 17:17 Dose: 0 mls/hr Documented By: Admin: 11/18/21 16:08 Dose: 100 mls/hr Documented By: RACHID Insulin Aspart (Insulin Aspart Per Unit) 0 units SC ACHS [facility] MANUEL Stop: 12/18/21 07:29 Last Admin: 11/18/21 21:06 Dose: Not Given Documented By: RUBY Co-signed By: CORRY Admin: 11/18/21 17:03 Dose: Not Given Documented By: RACHID Co-signed By: KATIE Admin: 11/18/21 11:24 Dose: Not Given Documented By: RACHID Co-signed By: KATIE Admin: 11/18/21 08:18 Dose: 2 units Documented By: TONY Co-signed By: Ondansetron HCl (Ondansetron Inj 2 Mg/Ml 2 Ml Vial) 4 mg IV Q6H PRN PRN Reason: Nausea Stop: 12/18/21 06:09 Last Admin: 11/18/21 12:48 Dose: 4 mg Documented By: Admin: 11/18/21 06:20 Dose: 4 mg Documented By: MED Discontinued Medications Hydromorphone HCl (Hydromorphone Inj 0.5 Mg/0.5 Ml Syr) 0.5 mg IV NOW STA Stop: 11/18/21 01:07 Last Admin: 11/18/21 01:13 Dose: 0.5 mg Documented By: PARIS Hydromorphone HCl (Hydromorphone Inj 0.5 Mg/0.5 Ml Syr) 0.5 mg IV NOW STA Stop: 11/18/21 02:45 Last Admin: 11/18/21 03:00 Dose: 0.5 mg Documented By: PARIS Hydromorphone HCl (Hydromorphone Inj 0.5 Mg/0.5 Ml Syr) 0.5 mg IV Q3H PRN PRN Reason: Severe Pain Stop: 12/02/21 06:09 Last Admin: 11/18/21 12:48 Dose: 0.5 mg Documented By: Admin: 11/18/21 08:29 Dose: 0.5 mg Documented By: TONY Piperacillin Sod/Tazobactam (Sod 4.5 gm/ Dextrose) 120 mls @ 30 mls/hr IV ONE ONE; Protocol Stop: 11/18/21 10:09 Last Infusion: 11/18/21 11:27 Dose: 0 mls/hr Documented By: Admin: 11/18/21 07:19 Dose: 30 mls/hr Documented By: TONY Morphine Sulfate (Morphine Sulfate 4 Mg/Ml 1 Ml Carp\Vial) 4 mg IV Q30M PRN PRN Reason: Pain Stop: 12/01/21 22:51 Last Admin: 11/18/21 00:20 Dose: 4 mg Documented By: Admin: 11/17/21 23:05 Dose: 4 mg Documented By: PARIS Ondansetron HCl (Ondansetron Inj 2 Mg/Ml 2 Ml Vial) 4 mg IV NOW STA Stop: 11/17/21 22:53 Last Admin: 11/17/21 23:04 Dose: 4 mg Documented By: PARIS Ondansetron HCl (Ondansetron Inj 2 Mg/Ml 2 Ml Vial) 4 mg IV NOW STA Stop: 11/18/21 06:07 Last Admin: 11/18/21 06:36 Dose: Not Given Documented By: PHILIPPE Medical Decision Making Differential Diagnosis Differential diagnosis: Etiologies such as biliary colic, cholecystitis, hepatitis, pancreatitis, cardiac disease, pancreatitis, gastritis, peptic ulcer disease, appendicitis, cystitis, diverticulitis, mesenteric ischemia, inflammatory bowel disease, ileus, bowel obstruction, testicular/adnexal torsion, aortic pathology, shingles, as well as others were considered Laboratory Data Result diagrams: 11/17/21 21:49 11/17/21 21:49 Lab Results 11/17/21 11/17/21 11/17/21 Range/Units 21:49 21:49 21:49 WBC 9.39 (4.8-10.8) K/ul RBC 4.61 (3.93-5.22) M/uL Hgb 13.0 (12.0-16.0) g/dl Hct 38.8 (34.1-44.9) % MCV 84.2 (80.0-100.0) fL MCH 28.2 (25.0-34.0) pg MCHC 33.5 (32.0-36.0) g/dL RDW Std Deviation 40.6 (36.4-46.3) fL RDW Coeff of Nilesh 13.3 (11.5-14.5) % Plt Count 156 (130-400) K/uL MPV 10.3 (9.4-12.3) fL Immature Gran % (Auto) 0.5 % Neut % (Auto) 71.7 % Lymph % (Auto) 17.7 % [place] % (Auto) 8.2 % Eos % (Auto) 1.7 % Baso % (Auto) 0.2 % Neut # (Auto) 6.73 H (1.4-6.5) K/uL Lymph # (Auto) 1.66 (1.2-3.4) K/uL [place] # (Auto) 0.77 (0.24-0.82) K/uL Eos # (Auto) 0.16 (0-0.50) K/uL Baso # (Auto) 0.02 (0-0.2) K/uL Immature Gran # (Auto) 0.05 H (0.00-0.02) K/uL Sodium 134 L (136-145) mmol/L Potassium 4.0 (3.5-5.1) mmol/L Chloride 100 (98-107) mmol/L Carbon Dioxide 21 (21-32) mmol/L Anion Gap 13 H (3-11) BUN 11 (6-23) mg/dl Creatinine 0.74 (0.6-1.2) mg/dl Est Cr Clr Drug Dosing 108.4 ml/min Est GFR ( Amer) 103.5 ml/min Est GFR (Non-Af Amer) 89.3 ml/min BUN/Creatinine Ratio 14.9 (10-20) Glucose 154 H (70-99(Fasting)) mg/dl Calcium 9.9 (8.5-10.1) mg/dl Total Bilirubin 0.6 (0.2-1.0) mg/dl AST 38 (13-39) U/L ALT 43 (7-52) U/L Alkaline Phosphatase 70 (34-104) U/L Total Protein 7.6 (6.0-8.3) gm/dl Albumin 4.3 (3.4-5.0) gm/dl Globulin 3.3 (2.5-4.0) gm/dl Albumin/Globulin Ratio 1.3 (0.9-2) Lipase 15 (11-82) U/L Urine Color Yellow Urine Appearance Turbid A (Clear) Urine pH 5.5 (4.5-7.5) Ur Specific [place] 1.017 (1.000-1.030) Urine Protein Trace H (Negative) Urine Glucose (UA) Negative (Negative) Urine Ketones Negative (Negative) Urine Blood 1+ H (Negative) Urine Nitrite Negative (Negative) Urine Bilirubin Negative (Negative) Urine Urobilinogen Negative (Negative) Ur Leukocyte Esterase Trace H (Negative) Urine WBC (Auto) 1-5 (0-5) /hpf Urine RBC (Auto) 0-4 (0-4) /hpf U Hyaline Cast (Auto) 1-5 (0-5) /lpf U Epithel Cells (Auto) >30 H (0-5) /lpf Urine Bacteria (Auto) Negative (Negative) SARS-CoV-2, RNA, NAAT (NEGATIVE) 11/18/21 Range/Units 04:30 WBC (4.8-10.8) K/ul RBC (3.93-5.22) M/uL Hgb (12.0-16.0) g/dl Hct (34.1-44.9) % MCV (80.0-100.0) fL MCH (25.0-34.0) pg MCHC (32.0-36.0) g/dL RDW Std Deviation (36.4-46.3) fL RDW Coeff of Nilesh (11.5-14.5) % Plt Count (130-400) K/uL MPV (9.4-12.3) fL Immature Gran % (Auto) % Neut % (Auto) % Lymph % (Auto) % [place] % (Auto) % Eos % (Auto) % Baso % (Auto) % Neut # (Auto) (1.4-6.5) K/uL Lymph # (Auto) (1.2-3.4) K/uL [place] # (Auto) (0.24-0.82) K/uL Eos # (Auto) (0-0.50) K/uL Baso # (Auto) (0-0.2) K/uL Immature Gran # (Auto) (0.00-0.02) K/uL Sodium (136-145) mmol/L Potassium (3.5-5.1) mmol/L Chloride (98-107) mmol/L Carbon Dioxide (21-32) mmol/L Anion Gap (3-11) BUN (6-23) mg/dl Creatinine (0.6-1.2) mg/dl Est Cr Clr Drug Dosing ml/min Est GFR ( Amer) ml/min Est GFR (Non-Af Amer) ml/min BUN/Creatinine Ratio (10-20) Glucose (70-99(Fasting)) mg/dl Calcium (8.5-10.1) mg/dl Total Bilirubin (0.2-1.0) mg/dl AST (13-39) U/L ALT (7-52) U/L Alkaline Phosphatase (34-104) U/L Total Protein (6.0-8.3) gm/dl Albumin (3.4-5.0) gm/dl Globulin (2.5-4.0) gm/dl Albumin/Globulin Ratio (0.9-2) Lipase (11-82) U/L Urine Color Urine Appearance (Clear) Urine pH (4.5-7.5) Ur Specific [place] (1.000-1.030) Urine Protein (Negative) Urine Glucose (UA) (Negative) Urine Ketones (Negative) Urine Blood (Negative) Urine Nitrite (Negative) Urine Bilirubin (Negative) Urine Urobilinogen (Negative) Ur Leukocyte Esterase (Negative) Urine WBC (Auto) (0-5) /hpf Urine RBC (Auto) (0-4) /hpf U Hyaline Cast (Auto) (0-5) /lpf U Epithel Cells (Auto) (0-5) /lpf Urine Bacteria (Auto) (Negative) SARS-CoV-2, RNA, NAAT NEGATIVE (NEGATIVE) Imaging Data Radiologist's Impression: Abdomen/Pelvis CT 11/17/21 21:25 CT SCAN OF THE ABDOMEN AND PELVIS WITHOUT IV CONTRAST CLINICAL HISTORY: Left lower quadrant abdominal pain. COMPARISON STUDY: Abdominal CT dated 06/25/2021. TECHNIQUE: CT scan of the abdomen and pelvis is performed from the lung bases to the proximal femora. Images are reviewed in the axial, sagittal, and coronal planes. IV contrast was not administered for this examination. Note that the examination was performed in suboptimal fashion without oral and IV contrast. A dose lowering technique was utilized adhering to the principles of ALARA. CT DOSE: 1404.11 mGy.cm FINDINGS: Lung bases: The heart is normal in size and without pericardial effusion. The lung bases are clear. Liver: The unenhanced liver is enlarged, measuring 25.8 cm in length. The liver demonstrates diffusely diminished attenuation indicating severe steatosis. Fatty sparing is seen adjacent to the gallbladder fossa. There is no intrahepatic biliary ductal dilatation. Gallbladder: Unremarkable. Spleen: The spleen is enlarged, measuring 19.5 cm in length. Pancreas: Unremarkable. Adrenal glands: Unremarkable. Kidneys: The unenhanced kidneys are normal in size and without hydronephrosis. There are no renal calculi identified. There is no evidence of contour deforming renal mass lesion. Abdominal vasculature: The abdominal aorta is normal in course and caliber noting mild atherosclerotic calcification. Bowel: There is mild to moderate colonic diverticulosis. There is wall thickening with pericolonic inflammation and fluid involving the distal descending colon consistent with acute diverticulitis. No organized fluid collection is seen to suggest abscess. There is no bowel obstruction. The appendix is well-visualized and normal. Peritoneum: There is no intraperitoneal free air or abdominal ascites. Lymphadenopathy: None. Pelvic viscera: The bladder and uterus are normal as visualized. A 4.8 cm simple cystic lesion is again noted in the left ovary. Skeletal structures: The skeletal structures are osteopenic. There is mild lumbosacral spondylosis. No lytic or blastic lesions are seen. IMPRESSION: 1. There is acute diverticulitis of the distal descending colon. 2. No intraperitoneal free air is seen and there is no organized fluid collection to suggest abscess on this unenhanced examination. 3. Hepatomegaly and severe hepatic steatosis. 4. Splenomegaly. 5. A 4.8 cm simple cystic lesion is again seen in the left ovary. This is pathologically indeterminate but abnormal in a postmenopausal patient. 6. Additional findings as above. ACT 112: Negative or not required by law. Electronically signed by: Bob Lloyd M.D. 11/18/2021 9:01 AM MDM Narrative Physical exam and history were performed. Nursing notes, EMR, and Medication List were personally reviewed. Patient appears to have left-sided abdominal pain bringing her to the ER. She does appear uncomfortable on presentation. IV access was established and labs were obtained. She was hydrated with normal saline and given IV morphine and IV Zofran for comfort. Patient's blood work is as above and was reviewed. She does not have a significantly elevated white blood cell count, gross anemia, bandemia, or significant electrolyte imbalance. Lipase and transaminases are not diagnostic. CT scan was performed and reviewed by myself and radiology. CT scan is consistent with acute diverticulitis. There does not appear to be abscess or free air. On reevaluation the patient continues to be quite uncomfortable. She did receive 2 doses of morphine without significant improvement of pain. I did transition her to IV Dilaudid, and after 2 doses she was saturating around 90% on room air. I discussed further options of care with the patient, and despite this she is still reporting a high level of pain. Because of this she does not seem well for discharge. The case was discussed with the on-call hospitalist team who agreed to evaluate her here in the ER. Please see their dictation for further patient course, plan, disposition. The chart was completed utilizing [employer] Speech Voice Recognition Software. Grammatical errors, random word insertions, pronoun errors, and incomplete sentences are an occasional consequence of this system due to software limitations, ambient noise, and hardware issues. Any formal questions or concerns about the content, text, or information contained within the body of this dictation should be directly addressed to the provider for clarification. . Impression & Plan Diverticulitis large intestine Discharge Plan Visit Data Chief Complaint: Abdominal Pain Stated Complaint: DIVERTICULITIS ED Provider: Neno Dewey ED Midlevel Provider: Amor Aragon Discharge Problem: Diverticulitis large intestine Patient Disposition: Admitted As Inpatient Discharge Instructions Interventions: ED Discharge Assessment Last Done: 11/18/21 06:09
[2021-11-17] MEDS: MoRPHine SULFATE 4 MG/ML 1 ML CARP\\VIAL IV PRN (23:05)
[2021-11-18] MEDS: MoRPHine SULFATE 4 MG/ML 1 ML CARP\\VIAL IV PRN (00:20)
[2021-11-18] MEDS ORDERED: HYDROmorphone INJ 0.5 MG/0.5 ML SYR IV STA ×2 (01:06→02:44)
--- NOTE | 2021-11-18 05:00 | History & Physical Report ---
Date of Service November 18, 2021 Assessment & Plan (1) Diverticulitis large intestine: Plan: Diverticulitis at junction of descending and sigmoid colon- NPO NSS + KCl 20 mEq at 100 mils per hour Zofran 4 mg IV every 6 hours as needed Zosyn 4.5 g IV every 8 hours Famotidine 20 mg IV every 12 hours Acetaminophen 1 g IV every 8 hours as needed mild pain or fever Dilaudid 0.25 mg IV every 3 hours as needed moderate pain Dilaudid 0.5 mg IV every 3 hours as needed for severe pain (2) Sleep apnea: Plan: Uses auto CPAP 5-15 at bedtime Patient may use her own or will prescribe her (3) Prediabetes: Plan: Prediabetes/metabolic syndrome- Hold metformin Place plan Accu-Cheks before meals and at bedtime/every 6 hours with NovoLog coverage per scale (4) Metabolic syndrome: Plan: See above (5) Hypertension: Plan: Atenolol 25 mg p.o. daily with hold parameters (6) Mixed hyperlipidemia: Plan: Hold rosuvastatin while n.p.o. (7) Fibromyalgia: History of Present Illness Chief Complaint: The patient presents to the emergency department with acute onset left lower quadrant abdominal pain, nausea without vomiting that began yesterday morning upon awakening. Primary Care Provider: Jeffry Castellano DO Patient is a 56-year-old female with a past medical history including diverticulitis, hypertension, mixed hyperlipidemia, prediabetes, obesity, hepatic steatosis, sleep apnea, fibromyalgia, depression with anxiety, lumbosacral radiculopathy, sensory polyneuropathy, metabolic syndrome, vitamin D deficiency, trochanteric bursitis of left hip, lumbar postlaminectomy syndrome, peripheral neuropathy and sacroiliitis. The patient presents to the emergency department with pain in her left lower quadrant consistent with previous episodes of diverticulitis. Work-up in the emergency department included CT scan abdomen pelvis: Diverticulitis at the junction of the descending and sigmoid colon. Allergies Allergy/AdvReac Type Severity Reaction Status Date / Time Iodinated Contrast Media Allergy U CT DYE Verified 11/05/21 14:40 CAUSES HIVES lisinopril Allergy Unknown Cough Verified 11/05/21 14:40 sulfamethoxazole Allergy Unknown Unknown Verified 11/05/21 14:40 [From Bactrim] trimethoprim [From Bactrim] Allergy Unknown Unknown Verified 11/05/21 14:40 Home Medications Medication Instructions Recorded Confirmed Type cholecalciferol (vitamin D3) 50 50 mcg PO DAILY #30 caps 05/13/20 11/05/21 Rx mcg (2,000 unit) capsule mecobalamin (vitamin B12) 1,000 1,000 mcg PO DAILY #30 tabs 05/13/20 11/05/21 Rx mcg chewable tablet rosuvastatin 5 mg tablet 5 mg PO DAILY #90 tabs 07/18/20 11/05/21 Rx Auto Titrating CPAP See Rx Instructions .Route 08/29/20 11/05/21 Rx .COMPLEX #1 ea metformin 1,000 mg tablet,extended 1,000 mg PO DAILY #90 tabs 04/04/21 11/05/21 Rx release 24hr Compounded Topical Cream: Mag Cl See Rx Instructions .Route .COMPLEX 06/25/21 11/05/21 History 10%/Lido 5%/Miguel A 6% albuterol sulfate 90 mcg/actuation 2 puff inhalation QID PRN 07/22/21 11/05/21 Rx aerosol inhaler shortness of breath or wheezing #8.5 grams budesonide 180 mcg/actuation 1 inh inhalation BID PRN 07/22/21 11/05/21 History breath activated powder inhaler (Pulmicort Flexhaler) clonazepam 0.5 mg tablet (Klonopin) 0.5 mg PO HS PRN Unknown 07/22/21 11/05/21 History doxepin 100 mg capsule 100 mg PO .COMPLEX #30 caps 09/02/21 11/05/21 Rx meloxicam 15 mg tablet 15 mg PO DAILY #30 tabs 09/08/21 11/05/21 Rx atenolol 25 mg tablet See Rx Instructions .Route 09/29/21 11/05/21 Rx .COMPLEX #90 tabs sertraline 25 mg tablet (Zoloft) 25 mg PO DAILY 10/21/21 11/05/21 History ciprofloxacin HCl 500 mg tablet 500 mg PO BID 10 days #20 tabs 11/17/21 Rx (Cipro) metronidazole 500 mg tablet 500 mg PO Q8H 10 days #30 tabs 11/17/21 Rx Past Med/Surg History Medical History Arthritis Benign monoclonal hypergammaglobulinemia Coronary artery calcinosis Cyst of left ovary Dietary counseling and surveillance Diverticulitis (~04/2019) Dysesthesia Eczema 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 Mota November 2016 Status post hysteroscopic ablation of endometrium Family History Mother , age 76 of cancer Myocardial infarction Depression Gallbladder disease Lung cancer Sister Depression Father , age 79 of lung cancer Hypertension Lung cancer Grandfather (Paternal) Lung cancer Son Rhabdomyolysis Unknown Thyroid disorder Denies family history of Ovarian cancer Prostate cancer Breast cancer Colorectal cancer Social History Smoking Status: Never smoker Number of Years Since Quit: 7; Second Hand Exposure: No; Hx Alcohol Use: Yes Hx Substance Use: No Preferred Language: Nepalese Communication Ability: Effective Visual Impairment: No Limitations Hearing Ability: Normal 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 Family able to assist with care as needed Feels Safe at Home: Yes Childhood Exposure to Second-Hand Smoke: Yes Diet Comment: sees for weight loss diet during the past year weight has: decreased > 10 lbs Dental Care, Regularly: Yes Physical Activity Frequency: Does not Exercise Seatbelt Use: always Sunscreen Use: Yes Review of Systems Review of Systems: The patient denies chest pain, palpitations, shortness of breath, dyspnea on exertion, cough, lower extremity swelling, sore throat, fevers, chills, sweats, vomiting, diarrhea , constipation, blood in urine or stool, dysuria, urinary frequency or urgency, lightheadedness, dizziness, headache, memory loss, loss of consciousness, rash, abnormal bruising or bleeding, imbalance, focal or generalized weakness, numbness or tingling in arms or legs, generalized arthralgias or myalgias, back or neck pain, or night sweats. The review of systems is otherwise negative other than for that already noted above, and at least 10 systems have been reviewed. Physical Exam Physical Exam: The patient is awake, alert and oriented 3, well developed and well nourished, normocephalic and atraumatic, lying in bed and in no acute distress. HEENT--PERRL, EOMI, mucous membranes and oropharynx mildly dry. Neck--supple. No JVD. No bruits. Thyroid normal, trachea midline, no adenopathy. Heart--normal S1 and S2. No murmurs, rubs or gallops. Lungs--clear bilaterally, no respiratory distress, no accessory muscle use. Abdomen--normal bowel sounds and soft. Tender left lower quadrant. Mildly tympanitic. Nondistended Extremities--no cyanosis or clubbing. No edema. There are good distal pulses b/l. Dermatologic--normal skin turgor, normal color, no abnormal lymph nodes, no rash. Neurologic--cranial nerves II through XII grossly intact. Rheumatologic--normal range of motion. Psychiatric--normal affect. Results & Data Results & Data ([facility]) Vital Signs (Past 12 Hours) Vital Signs Temp Pulse Pulse Resp BP BP Pulse Ox 11/18/21 03:00 95 H 14 149/98 H 92 11/18/21 02:30 91 H 16 138/88 94 11/18/21 02:00 94 H 22 151/87 H 90 11/18/21 01:30 93 H 14 150/87 H 94 11/18/21 01:00 100 H 18 141/93 H 95 11/18/21 00:30 100 H 16 154/91 H 95 11/18/21 00:18 97 H 24 165/101 H 93 11/18/21 00:18 102 H 18 165/101 H 95 11/17/21 23:10 104 H 25 H 94 11/17/21 23:07 102 H 16 11/17/21 23:07 166/100 H 11/17/21 22:50 100 H 20 93 11/17/21 22:45 100 H 21 94 11/17/21 22:31 37.5 C 108 H 16 156/102 H 96 11/17/21 21:13 36.4 C L 114 H 20 165/90 H 95 O2 Del Method 11/18/21 03:00 11/18/21 02:30 11/18/21 02:00 11/18/21 01:30 11/18/21 01:00 11/18/21 00:30 11/18/21 00:18 11/18/21 00:18 Room Air 11/17/21 23:10 11/17/21 23:07 11/17/21 23:07 11/17/21 22:50 11/17/21 22:45 11/17/21 22:31 11/17/21 21:13 Room Air Laboratory Results Laboratory Results WBC 9.39 K/ul (4.8-10.8) 11/17/21 21:49 RBC 4.61 M/uL (3.93-5.22) 11/17/21 21:49 Hgb 13.0 g/dl (12.0-16.0) 11/17/21 21:49 Hct 38.8 % (34.1-44.9) 11/17/21 21:49 MCV 84.2 fL (80.0-100.0) 11/17/21 21:49 MCH 28.2 pg (25.0-34.0) 11/17/21 21:49 MCHC 33.5 g/dL (32.0-36.0) 11/17/21 21:49 RDW Std Deviation 40.6 fL (36.4-46.3) 11/17/21 21:49 RDW Coeff of Nilesh 13.3 % (11.5-14.5) 11/17/21 21:49 Plt Count 156 K/uL (130-400) 11/17/21 21:49 MPV 10.3 fL (9.4-12.3) 11/17/21 21:49 Immature Gran % (Auto) 0.5 % 11/17/21 21:49 Neut % (Auto) 71.7 % 11/17/21 21:49 Lymph % (Auto) 17.7 % 11/17/21 21:49 Burke % (Auto) 8.2 % 11/17/21 21:49 Eos % (Auto) 1.7 % 11/17/21 21:49 Baso % (Auto) 0.2 % 11/17/21 21:49 Neut # (Auto) 6.73 K/uL (1.4-6.5) H 11/17/21 21:49 Lymph # (Auto) 1.66 K/uL (1.2-3.4) 11/17/21 21:49 Burke # (Auto) 0.77 K/uL (0.24-0.82) 11/17/21 21:49 Eos # (Auto) 0.16 K/uL (0-0.50) 11/17/21 21:49 Baso # (Auto) 0.02 K/uL (0-0.2) 11/17/21 21:49 Immature Gran # (Auto) 0.05 K/uL (0.00-0.02) H 11/17/21 21:49 Sodium 134 mmol/L (136-145) L 11/17/21 21:49 Potassium 4.0 mmol/L (3.5-5.1) 11/17/21 21:49 Chloride 100 mmol/L (98-107) 11/17/21 21:49 Carbon Dioxide 21 mmol/L (21-32) 11/17/21 21:49 Anion Gap 13 (3-11) H 11/17/21 21:49 BUN 11 mg/dl (6-23) 11/17/21 21:49 Creatinine 0.74 mg/dl (0.6-1.2) 11/17/21 21:49 Est Cr Clr Drug Dosing 108.4 ml/min 11/17/21 21:49 Est GFR ( Amer) 103.5 ml/min 11/17/21 21:49 Est GFR (Non-Af Amer) 89.3 ml/min 11/17/21 21:49 BUN/Creatinine Ratio 14.9 (10-20) 11/17/21 21:49 Glucose 154 mg/dl (70-99(Fasting)) H 11/17/21 21:49 Calcium 9.9 mg/dl (8.5-10.1) 11/17/21 21:49 Total Bilirubin 0.6 mg/dl (0.2-1.0) 11/17/21 21:49 AST 38 U/L (13-39) 11/17/21 21:49 ALT 43 U/L (7-52) 11/17/21 21:49 Alkaline Phosphatase 70 U/L (34-104) 11/17/21 21:49 Total Protein 7.6 gm/dl (6.0-8.3) 11/17/21 21:49 Albumin 4.3 gm/dl (3.4-5.0) 11/17/21 21:49 Globulin 3.3 gm/dl (2.5-4.0) 11/17/21 21:49 Albumin/Globulin Ratio 1.3 (0.9-2) 11/17/21 21:49 Lipase 15 U/L (11-82) 11/17/21 21:49 Urine Color Yellow 11/17/21 21:49 Urine Appearance Turbid (Clear) A 11/17/21 21:49 Urine pH 5.5 (4.5-7.5) 11/17/21 21:49 Ur Specific Nimitz 1.017 (1.000-1.030) 11/17/21 21:49 Urine Protein Trace (Negative) H 11/17/21 21:49 Urine Glucose (UA) Negative (Negative) 11/17/21 21:49 Urine Ketones Negative (Negative) 11/17/21 21:49 Urine Blood 1+ (Negative) H 11/17/21 21:49 Urine Nitrite Negative (Negative) 11/17/21 21:49 Urine Bilirubin Negative (Negative) 11/17/21 21:49 Urine Urobilinogen Negative (Negative) 11/17/21 21:49 Ur Leukocyte Esterase Trace (Negative) H 11/17/21 21:49 Urine WBC (Auto) 1-5 /hpf (0-5) 11/17/21 21:49 Urine RBC (Auto) 0-4 /hpf (0-4) 11/17/21 21:49 U Hyaline Cast (Auto) 1-5 /lpf (0-5) 11/17/21 21:49 U Epithel Cells (Auto) >30 /lpf (0-5) H 11/17/21 21:49 Urine Bacteria (Auto) Negative (Negative) 11/17/21 21:49 SARS-CoV-2, RNA, NAAT NEGATIVE (NEGATIVE) 11/18/21 04:30 Diagnostic Findings [facility] Patient: TAVON BURROUGHS (Female) : 61 Status: ER Date: 11/17/21 23:05 Room #:A History: LLQ pain, hx. Diverticulitis Slices: [id number] Priors: Tech: Cruz Evans @ [id number] Exams: CT ABDOMEN & PELVIS Without Contrast Contrast: Accession Numbers: [id number] Referring Physician: JESSICA MORAN Preliminary Findings Only See Final Report For Complete Findings CT ABDOMEN & PELVIS Without Contrast: Hepatic steatosis Colonic diverticulitis noted at the junction of the descending and sigmoid colon with moderate inflammation. No free air or abscess Left-sided ovarian cyst incidentally noted measuring 4.6 cm Radiologist: Paul Schulte MD Study ready at 23:10 and initial results transmitted at 23:15 *This report constitutes a preliminary interpretation only. Non-acute findings felt to be unrelated to the clinical presentation may not be discussed in this report. The study will be interpreted and a final report will be generated by the local Radiologist the following shift. To reach the hospital radiology department call [phone]. If a discrepancy is found between the preliminary and final interpretations of this study, please notify us via our Client Portal at [email or web address], under QA Exams. You can also fax this report with a description of the discrepancy, or include the final report, to our daytime fax number [phone]. If faxing, please indicate the severity of discrepancy using one of the following categories: [ ] 1 - Agree/Informational [ ] 2 - Unlikely to Affect Management [ ] 3 - Possible Eventual Change of Management [ ] 4 - Probable Immediate Change of Management For all other patient related information, please fax us at [phone]. [id number] Code Status & VTE Plan Code Status Full code VTE Prophylaxis Plan VTE Prophylaxis will be ordered: Yes PG Care Time/CCT Total # of Minutes Spent Total Time Spent with Patient: Total time spent is greater than 50% in coordination of care (as documented) at patient's floor/unit and/or counseling patient: Coding Level of Care Code 04853 Initial Inpt Care Lvl 3 Diagnoses Diverticulitis large intestine K57.32 Sleep apnea G47.30 Prediabetes R73.03 Metabolic syndrome E88.81 Hypertension I10 Mixed hyperlipidemia E78.2 Fibromyalgia M79.7
[2021-11-18] MEDS ORDERED: ONDANSETRON INJ 2 MG/ML 2 ML VIAL IV STA (06:06)
[2021-11-18] MEDS ORDERED: GLUCAGON FOR INJ 1 MG VIAL SQ PRN (06:10)
[2021-11-18] MEDS ORDERED: ACETAMINOPHEN 1,000 MG/100 ML VIAL IV PRN (06:10)
[2021-11-18] MEDS ORDERED: PIPERACILLIN/TAZOBACTAM 4.5 GM in DEXTROSE 5% 100 ML IV ONE (06:10)
[2021-11-18] MEDS ORDERED: DEXTROSE 50% 50 ML SYRINGE IV PRN (06:10)
[2021-11-18] MEDS ORDERED: GLUCOSE 40% GEL 15 GM TUBE PO PRN (06:10)
[2021-11-18] MEDS ORDERED: CARBOHYDRATES FOR HYPOGLYCEMIA PO PRN (06:10)
[2021-11-18] MEDS ORDERED: HYDROmorphone INJ 0.5 MG/0.5 ML SYR IV PRN (06:10)
[2021-11-18] MEDS ORDERED: GLUCOSE 10 TAB/TUBE PO PRN (06:10)
[2021-11-18] MEDS: ONDANSETRON INJ 2 MG/ML 2 ML VIAL IV PRN ×2 (06:20→12:48)
[2021-11-18] MEDS: NSS + 20MEQ KCL 20 MEQ/1,000 ML BAG IV SCH ×2 (07:20→21:57)
[2021-11-18] MEDS: ENOXAPARIN INJ 40 MG/0.4 ML SYR SQ SCH ×2 (07:20→21:58)
[2021-11-18] MEDS: INSULIN ASPART PER UNIT SC SCH ×4 (08:18→21:06)
[2021-11-18] MEDS: ATENOLOL 25 MG TABLET PO SCH (08:27)
[2021-11-18] MEDS: HYDROmorphone INJ 0.5 MG/0.5 ML SYR IV PRN ×2 (08:29→12:48)
[2021-11-18] MEDS: FAMOTIDINE 20 MG in SYRINGE 3 ML IV SCH ×2 (08:42→21:04)
--- NOTE | 2021-11-18 09:02 | CT Scan Report ---
CT SCAN OF THE ABDOMEN AND PELVIS WITHOUT IV CONTRAST CLINICAL HISTORY: Left lower quadrant abdominal pain. COMPARISON STUDY: Abdominal CT dated 06/25/2021. TECHNIQUE: CT scan of the abdomen and pelvis is performed from the lung bases to the proximal femora. Images are reviewed in the axial, sagittal, and coronal planes. IV contrast was not administered for this examination. Note that the examination was performed in suboptimal fashion without oral and IV contrast. A dose lowering technique was utilized adhering to the principles of ALARA. CT DOSE: 1404.11 mGy.cm FINDINGS: Lung bases: The heart is normal in size and without pericardial effusion. The lung bases are clear. Liver: The unenhanced liver is enlarged, measuring 25.8 cm in length. The liver demonstrates diffusel y diminished attenuation indicating severe steatosis. Fatty sparing is seen adjacent to the gallbladd er fossa. There is no intrahepatic biliary ductal dilatation. Gallbladder: Unremarkable. Spleen: The spleen is enlarged, measuring 19.5 cm in length. Pancreas: Unremarkable. Adrenal glands: Unremarkable. Kidneys: The unenhanced kidneys are normal in size and without hydronephrosis. There are no renal richelle culi identified. There is no evidence of contour deforming renal mass lesion. Abdominal vasculature: The abdominal aorta is normal in course and caliber noting mild atheroscleroti c calcification. Bowel: There is mild to moderate colonic diverticulosis. There is wall thickening with pericolonic in flammation and fluid involving the distal descending colon consistent with acute diverticulitis. No o rganized fluid collection is seen to suggest abscess. There is no bowel obstruction. The appendix is well-visualized and normal. Peritoneum: There is no intraperitoneal free air or abdominal ascites. Lymphadenopathy: None. Pelvic viscera: The bladder and uterus are normal as visualized. A 4.8 cm simple cystic lesion is aga in noted in the left ovary. Skeletal structures: The skeletal structures are osteopenic. There is mild lumbosacral spondylosis. N o lytic or blastic lesions are seen. IMPRESSION: 1. There is acute diverticulitis of the distal descending colon. 2. No intraperitoneal free air is seen and there is no organized fluid collection to suggest abscess on this unenhanced examination. 3. Hepatomegaly and severe hepatic steatosis. 4. Splenomegaly. 5. A 4.8 cm simple cystic lesion is again seen in the left ovary. This is pathologically indeterminat e but abnormal in a postmenopausal patient. 6. Additional findings as above. ACT 112: Negative or not required by law. Electronically signed by: Bob Lloyd M.D. 11/18/2021 9:01 AM
[2021-11-18] MEDS: metroNIDAZOLE 500 MG/100 ML BAG IV SCH (16:08)
[2021-11-18] MEDS: CIPROFLOXACIN / D5W 400 MG/200 ML BAG IV SCH (16:14)
[2021-11-18] MEDS ORDERED: PROMETHAZINE HCL 6.25 MG in SODIUM CHLORIDE 0.9% 50 ML IV PRN (16:18)
[2021-11-19] MEDS: metroNIDAZOLE 500 MG/100 ML BAG IV SCH ×3 (00:50→15:15)
[2021-11-19] MEDS: KETOROLAC TROMETHAMINE 15 MG/ML VIAL IV PRN ×2 (01:04→10:58)
[2021-11-19] MEDS: CIPROFLOXACIN / D5W 400 MG/200 ML BAG IV SCH ×2 (04:41→16:20)
[2021-11-19] MEDS: NSS + 20MEQ KCL 20 MEQ/1,000 ML BAG IV SCH ×2 (05:20→10:53)
[2021-11-19] MEDS: ENOXAPARIN INJ 40 MG/0.4 ML SYR SQ SCH ×2 (06:23→19:01)
[2021-11-19 07:46] LABS: Basophils # (auto) 0.02 K/uL (0-0.2); Basophils % (auto) 0.3 %; Eosinophils # (auto) 0.23 K/uL (0-0.50); Eosinophils % (auto) 3.8 %; Immature Granulocytes # (auto) 0.04 K/uL (0.00-0.02); Immature Granulocytes % (auto) 0.7 %; Lymphocytes # (auto) 1.37 K/uL (1.2-3.4); Lymphocytes % (auto) 22.9 %; Mean Corpuscular Hemoglobin 28.6 pg (25.0-34.0); Mean Corpuscular Hgb Conc 33.3 g/dL (32.0-36.0); Mean Corpuscular Volume 85.7 fL (80.0-100.0); Mean Platelet Volume 10.5 fL (9.4-12.3); Monocytes # (auto) 0.47 K/uL (0.24-0.82); Monocytes % (auto) 7.8 %; Neutrophils # (auto) 3.86 K/uL (1.4-6.5); Neutrophils % (auto) 64.5 %; Platelet Count 136 K/uL (130-400); RDW Coefficient of Variation 13.6 % (11.5-14.5); RDW Standard Deviation 42.4 fL (36.4-46.3); Red Blood Count 3.85 M/uL (3.93-5.22); White Blood Count 5.99 K/ul (4.8-10.8)
[2021-11-19] MEDS: INSULIN ASPART PER UNIT SC SCH ×4 (07:54→20:57)
[2021-11-19] MEDS: ATENOLOL 25 MG TABLET PO SCH (08:03)
[2021-11-19] MEDS: FAMOTIDINE 20 MG in SYRINGE 3 ML IV SCH ×2 (08:03→20:00)
[2021-11-19 08:24] LABS: Albumin Globulin Ratio 1.3 (0.9-2); Albumin Level 3.7 gm/dl (3.4-5.0); BUN Creatinine Ratio 16.9 (10-20); Bilirubin,Total 0.7 mg/dl (0.2-1.0); Calcium 8.7 mg/dl (8.5-10.1); Creatinine Clr Calc Pharmacy 107.3 ml/min; Est GFR (African American) 108.8 ml/min; Est GFR (Non-African American) 93.9 ml/min; Globulin 2.8 gm/dl (2.5-4.0); Magnesium 2.1 mg/dl (1.7-2.4); Potassium 3.9 mmol/L (3.5-5.1); Total Protein 6.5 gm/dl (6.0-8.3)
[2021-11-19 10:03] LABS: Estimated Average Glucose 166 mg/dl; Hemoglobin A1C 7.4 % (4.5-5.6)
--- NOTE | 2021-11-19 13:23 | Hospitalist Progress Note ---
Date of Service November 19, 2021 Assessment & Plan (1) Diverticulitis large intestine: Plan: Diverticulitis at junction of descending and sigmoid colon as seen on CT abdomen Abdominal pain has resolved, patient willing to start diet Zofran 4 mg IV every 6 hours as needed Zosyn 4.5 g IV every 8 hours Famotidine 20 mg IV every 12 hours Acetaminophen 1 g IV every 8 hours as needed mild pain or fever Toradol PRN Will advance diet as tolerated Plan to d/c on PO antibiotics (2) Sleep apnea: Plan: Uses auto CPAP 5-15 at bedtime Patient may use her own or will prescribe her (3) Prediabetes: Plan: Prediabetes/metabolic syndrome- Hold metformin Place plan Accu-Cheks before meals and at bedtime/every 6 hours with NovoLog coverage per scale (4) Metabolic syndrome: Plan: See above (5) Hypertension: Plan: Atenolol 25 mg p.o. daily with hold parameters (6) Mixed hyperlipidemia: Plan: Hold rosuvastatin while n.p.o. (7) Fibromyalgia: Admission and Anticipated Discharge Date Admission Date: November 18, 2021 Subjective patient seen and examined this morning, says abdominal pain is better Review of Systems Review of Systems: All systems reviewed are negative, apart from the ones contained in the history. Physical Exam Physical Exam: The patient is awake, alert and oriented 3, well developed and well nourished, normocephalic and atraumatic, lying in bed and in no acute distress. HEENT--PERRL, EOMI, mucous membranes and oropharynx mildly dry Neck--supple. No JVD. No bruits. Thyroid normal, trachea midline, no adenopathy. Heart--normal S1 and S2. No murmurs, rubs or gallops. Lungs--clear bilaterally, no respiratory distress, no accessory muscle use. Abdomen--normal bowel sounds and soft. Mild epigastric and left sided abdominal pain Extremities--no cyanosis or clubbing. No edema. Dermatologic--normal skin turgor, normal color, no abnormal lymph nodes, no rash. Neurologic--cranial nerves II through XII grossly intact. Rheumatologic--normal range of motion. Psychiatric--normal affect. Results & Data Results & Data ([facility]) Vital Signs (Past 12 Hours) Vital Signs Temp Pulse Resp BP Pulse Ox O2 Del Method 11/19/21 07:26 97.3 F L 73 16 129/77 93 Room Air PG Care Time/CCT Total # of Minutes Spent Total Time Spent with Patient: Total time spent is greater than 50% in coordination of care (as documented) at patient's floor/unit and/or counseling patient: Coding Level of Care Code 14539 Subseq Hosp Care Lvl 2 Diagnoses Diverticulitis large intestine K57.32 Sleep apnea G47.30 Prediabetes R73.03 Metabolic syndrome E88.81 Hypertension I10 Mixed hyperlipidemia E78.2 Fibromyalgia M79.7 Time Spent (min) 35
[2021-11-19] MEDS ORDERED: DOXEPIN HCL 50 MG CAPSULE PO SCH (21:00)
[2021-11-20] MEDS: metroNIDAZOLE 500 MG/100 ML BAG IV SCH ×2 (00:13→07:52)
[2021-11-20] MEDS: NSS + 20MEQ KCL 20 MEQ/1,000 ML BAG IV SCH (00:13)
[2021-11-20] MEDS: CIPROFLOXACIN / D5W 400 MG/200 ML BAG IV SCH (04:19)
[2021-11-20] MEDS: ENOXAPARIN INJ 40 MG/0.4 ML SYR SQ SCH (04:20)
[2021-11-20 07:47] LABS: Basophils # (auto) 0.02 K/uL (0-0.2); Basophils % (auto) 0.4 %; Eosinophils # (auto) 0.18 K/uL (0-0.50); Eosinophils % (auto) 3.9 %; Hematocrit (blood only) 32.6 % (34.1-44.9); Hemoglobin 10.8 g/dl (12.0-16.0); Immature Granulocytes # (auto) 0.05 K/uL (0.00-0.02); Immature Granulocytes % (auto) 1.1 %; Lymphocytes # (auto) 1.07 K/uL (1.2-3.4); Lymphocytes % (auto) 23.3 %; Mean Corpuscular Hemoglobin 28.6 pg (25.0-34.0); Mean Corpuscular Hgb Conc 33.1 g/dL (32.0-36.0); Mean Corpuscular Volume 86.2 fL (80.0-100.0); Mean Platelet Volume 10.2 fL (9.4-12.3); Monocytes # (auto) 0.36 K/uL (0.24-0.82); Monocytes % (auto) 7.8 %; Neutrophils # (auto) 2.92 K/uL (1.4-6.5); Neutrophils % (auto) 63.5 %; Platelet Count 141 K/uL (130-400); RDW Coefficient of Variation 13.3 % (11.5-14.5); RDW Standard Deviation 41.4 fL (36.4-46.3); Red Blood Count 3.78 M/uL (3.93-5.22)
[2021-11-20 08:06] LABS: Albumin Globulin Ratio 1.2 (0.9-2); Albumin Level 3.7 gm/dl (3.4-5.0); BUN Creatinine Ratio 12.9 (10-20); Bilirubin,Total 0.4 mg/dl (0.2-1.0); Calcium 8.7 mg/dl (8.5-10.1); Creatinine Clr Calc Pharmacy 108.8 ml/min; Est GFR (African American) 110.7 ml/min; Est GFR (Non-African American) 95.5 ml/min; Globulin 3.1 gm/dl (2.5-4.0); Total Protein 6.8 gm/dl (6.0-8.3)
[2021-11-20] MEDS: ATENOLOL 25 MG TABLET PO SCH (09:35)
[2021-11-20] MEDS: INSULIN ASPART PER UNIT SC SCH (09:41)
[2021-11-20] MEDS: FAMOTIDINE 20 MG in SYRINGE 3 ML IV SCH (09:41)
--- NOTE | 2021-11-20 12:09 | Discharge Summary ---
Date of Service November 20, 2021 Admission HPI Per Admitting Provider Patient is a 56-year-old female with a past medical history including diverticulitis, hypertension, mixed hyperlipidemia, prediabetes, obesity, hepatic steatosis, sleep apnea, fibromyalgia, depression with anxiety, lumbosacral radiculopathy, sensory polyneuropathy, metabolic syndrome, vitamin D deficiency, trochanteric bursitis of left hip, lumbar postlaminectomy syndrome, peripheral neuropathy and sacroiliitis. The patient presents to the emergency department with pain in her left lower quadrant consistent with previous episodes of diverticulitis. Work-up in the emergency department included CT scan abdomen pelvis: Diverticulitis at the junction of the descending and sigmoid colon. Principal Diagnosis acute diverticulitis Discharge Exam The patient is awake, alert and oriented 3, well developed and well nourished, normocephalic and atraumatic, lying in bed and in no acute distress. HEENT--PERRL, EOMI, mucous membranes and oropharynx mildly dry Neck--supple. No JVD. No bruits. Thyroid normal, trachea midline, no adenopathy. Heart--normal S1 and S2. No murmurs, rubs or gallops. Lungs--clear bilaterally, no respiratory distress, no accessory muscle use. Abdomen--normal bowel sounds and soft. Mild epigastric and left sided abdominal pain Extremities--no cyanosis or clubbing. No edema. Dermatologic--normal skin turgor, normal color, no abnormal lymph nodes, no rash. Neurologic--cranial nerves II through XII grossly intact. Rheumatologic--normal range of motion. Psychiatric--normal affect. Discharge Data Allergies Allergy/AdvReac Type Severity Reaction Status Date / Time Iodinated Contrast Media Allergy U CT DYE Verified 11/05/21 14:40 CAUSES HIVES lisinopril Allergy Unknown Cough Verified 11/05/21 14:40 sulfamethoxazole Allergy Unknown Unknown Verified 11/05/21 14:40 [From Bactrim] trimethoprim [From Bactrim] Allergy Unknown Unknown Verified 11/05/21 14:40 Consultations 11/18/21 04:42 ED Decision to Admit Stat Ordered Studies 11/17/21 21:25 CT abd pelvis wo con Urgent Diabetes Follow up Diabetes Follow-up Needed for Newly Diagnosed Diabetes Hospital Course (1) Diverticulitis large intestine: Diverticulitis at junction of descending and sigmoid colon as seen on CT abdomen Abdominal pain has resolved, patient tolerating regular diet diet Plan to d/c on PO antibiotics, Flagyl and Cipro (2) Sleep apnea: Uses auto CPAP 5-15 at bedtime Patient may use her own or will prescribe her (3) Prediabetes: Prediabetes/metabolic syndrome- Hold metformin Place plan Accu-Cheks before meals and at bedtime/every 6 hours with NovoLog coverage per scale (4) Metabolic syndrome: See above (5) Hypertension: Atenolol 25 mg p.o. daily with hold parameters (6) Mixed hyperlipidemia: Hold rosuvastatin while n.p.o. (7) Fibromyalgia: Total Time Total Time Spent Total Time Spent (In Minutes): 35 Discharge Plan Discharge Items Patient Disposition: Home - Self-Care Reason For Visit: DIVERTICULITIS Discharge Diagnosis: acute diverticulitis Activity: Resume your previous activity Non-emergency contact: Primary Care Provider Call non-emergency contact if: you have any medication questions Follow-up/Referrals: Jeffry Castellano DO [Primary Care Provider] - 11/24/21 11:00 am Diet: Regular Addtl Attending Provider Instructions: please make appointment to follow up with your regular PCP Pending Studies at Discharge: No Stand-Alone Forms: My [place], Smoking Cessation Medications and DC Order Prescriptions: Continued clonazepam [Klonopin] 0.5 mg tablet 0.5 mg PO HS PRN (Reason: Unknown) doxepin 100 mg capsule 100 mg PO .COMPLEX Qty: 30 2RF Rx Instructions: 100 mg PO every evening; meloxicam 15 mg tablet 15 mg PO DAILY Qty: 30 2RF atenolol 25 mg tablet See Rx Instructions .ROUTE .COMPLEX Qty: 90 3RF Dose Instruction: TAKE 1 TABLET BY MOUTH DAILY Rx Instructions: TAKE 1 TABLET BY MOUTH DAILY ciprofloxacin HCl [Cipro] 500 mg tablet 500 mg PO BID 10 Days Qty: 20 0RF metronidazole 500 mg tablet 500 mg PO Q8H 10 Days Qty: 30 0RF metformin 1,000 mg tablet extended release 24hr 1,000 mg PO DAILY Qty: 90 3RF sertraline [Zoloft] 25 mg tablet 25 mg PO DAILY Pulmicort Flexhaler 180 mcg/actuation aerosol powdr breath activated 1 inh inhalation BID PRN albuterol sulfate 90 mcg/actuation HFA aerosol inhaler 2 puff inhalation QID PRN (Reason: shortness of breath or wheezing) Qty: 8.5 3RF rosuvastatin 5 mg tablet 5 mg PO DAILY Qty: 90 3RF mecobalamin (vitamin B12) 1,000 mcg tablet,chewable 1,000 mcg PO DAILY Qty: 30 0RF cholecalciferol (vitamin D3) 50 mcg (2,000 unit) capsule 50 mcg PO DAILY Qty: 30 0RF Auto Titrating CPAP Misc See Rx Instructions .ROUTE .COMPLEX Qty: 1 0RF Rx Instructions: 5 to 15 cm of water, mask fit to patient comfort, heated humidification, all tubing mask filters and supplies, DME of patient choice; Compounded Topical Cream: Mag Cl 10%/Lido 5%/Braden 6% cream See Rx Instructions .ROUTE .COMPLEX Rx Instructions: 2 - 4 pump topically ;MAG CL 10%/ LIDO 5%/ BRADEN 6% CREAM. APPLY 2-4 PUMPS (1- 2 GRAMS) TO AFFECTED AREA 3-4 TIMES A DAY FOR NEUROPATHY. COMPOUNDED AT [facility] Discharge Orders: Discharge Order (Routine); Ordered 11/20/21 Ordered By: Papito Martinez/Other Patient Handouts: High Blood Sugar (Hyperglycemia), Hypoglycemia (Low Blood Sugar), Exercise: Why Fitness Matters, Diabetes: Meal Planning, Type 2 Diabetes Admission Data Admit Date/Time: 11/18/21 04:59 Attending Provider: Papito Altamirano Admit Provider: Caio Patten Primary Care Provider: Jeffry Castellano Other Providers: Caio Patten Other Interventions: Discharge Summary Assessment (RN) Last Done: 11/20/21 11:46 Coding Level of Care Code D/C DAY MANAGEMENT >30 MINS Diagnoses Diverticulitis large intestine K57.32 Sleep apnea G47.30 Prediabetes R73.03 Metabolic syndrome E88.81 Hypertension I10 Mixed hyperlipidemia E78.2 Fibromyalgia M79.7 Time Spent (min) 35
== END 2021-11-20 13:30 | disposition home or self-care (01) | DRG 392 ==
LOC: ED 20:48 → SUATTDRO 11-18 04:59 → EDINP 11-18 04:59 → 3N 11-18 06:09